=== PATIENT | female | born 1950 | race Caucasian/White ===

== ENCOUNTER → 2018-01-30 13:06 | Outpatient (CLI) | payer MEDICARE, BC, SELFPAY | PROVIDERS: PCP Nurse Practitioner Family; Visit Provider Nurse Practitioner Family | DX: M85.832 Other specified disorders of bone density and structure, left forearm (principal); Z78.0 Asymptomatic menopausal state; Z87.891 Personal history of nicotine dependence | CPT/HCPCS: 77080; 77081 ==

== ENCOUNTER → 2018-03-10 11:28 | Outpatient (CLI) | payer MEDICARE, BC, SELFPAY ==
--- NOTE | 2018-03-10 | DI.MG.S_ITS ---
BILATERAL DIGITAL SCREENING MAMMOGRAM 3D/2D WITH CAD: 03/10/2018 CLINICAL: Routine screening. Comparison is made to exams dated: 10/13/2016 mammogram, 10/08/2015 mammogram, and 09/11/2014 mammogram - [facility]. There are scattered fibroglandular elements in both breasts. Current study was also evaluated with a Computer Aided Detection (CAD) system. No significant masses, calcifications, or other findings are seen in either breast. There has been no significant interval change. IMPRESSION: NEGATIVE There is no mammographic evidence of malignancy. A 1 year screening mammogram is recommended. This exam was interpreted at Station ID: [id number]. NOTE: For mammograms, a report in lay terms will be sent to the patient. Approximately 15% of breast malignancies will not be visualized mammographically. In the management of a palpable breast mass, a negative mammogram must not discourage biopsy of a clinically suspicious lesion. Electronically Signed By: Asia ochoa/flory:03/10/2018 12:26:39 letter sent: Normal Exam ACR BI-RADS Category 1: Negative 3341F
== END ==
PROVIDERS: PCP Nurse Practitioner Family; Visit Provider Nurse Practitioner Family
DX: Z12.31 Encounter for screening mammogram for malignant neoplasm of breast (principal)
CPT/HCPCS: 77063; 77067

== ENCOUNTER 2018-04-08 12:49 | Emergency (ER) | payer MEDICARE, BC, SELFPAY ==
[2018-04-08 13:11] VITALS: BP 120/76; PULSE 91; RESP 15; TEMP 36.4; O2SAT 96; BMI 29.0
--- NOTE | 2018-04-08 13:15 | DI.RAD.S_ITS ---
PROCEDURE: XR CHEST 1V INDICATIONS: chest pain TECHNIQUE: One view of the chest was acquired. COMPARISON: None. FINDINGS: Surgical changes and devices: Left shoulder arthroplasty. Lungs and pleura: No pleural effusions or pneumothorax. Lungs are clear. Mediastinum: Mediastinal contours appear normal. Heart size is normal. Bones and chest wall: No suspicious bony lesions. Overlying soft tissues appear unremarkable. IMPRESSION: No acute cardiopulmonary disease process. Dictated by: Mayuri Valerio MD, PhD on 04/08/2018 at 13:51 Approved by: Mayuri Valerio MD, PhD on 04/08/2018 at 13:51
[2018-04-08] MEDS: ASPIRIN 81 MG TAB 324 MG PO (13:39)
[2018-04-08 13:40] VITALS: BP 113/67; PULSE 88; O2SAT 97
[2018-04-08 13:41] LABS: Prothrombin Time 10.6 SECONDS (10.1-12.7)
[2018-04-08 13:44] LABS: PTT Partial Thromboplastin Tim 32 SECONDS (26.4-36.2)
[2018-04-08 13:47] LABS: Alanine Aminotransferase 25 IU/L (9-52); Albumin 4.5 g/dL (3.5-5.0); Albumin Globulin Ratio 1.6 (1.0-2.8); Alkaline Phosphatase 85 U/L (38-126); Aspartate Aminotransferase 23 IU/L (14-36); Bilirubin Total 0.4 mg/dL (0.2-1.3); Blood Urea Nitrogen 20 mg/dL (7-17); Calcium 9.6 mg/dL (8.4-10.2); Carbon Dioxide 28 mmol/L (22-32); Chloride 105 mmol/L (98-107); Creatine Kinase 29 U/L (30-135); Estimated Glomerular Filt Rate > 60.0 mL/min (>60); Globulin 2.9 g/dL (1.7-4.1); Glucose 90 mg/dL (80-110); HEMOLYSIS 21 (0-50); Lipase 81 U/L (23-300); Potassium 3.8 mmol/L (3.4-5.1); Sodium 143 mmol/L (137-145); Total Protein 7.4 g/dL (6.3-8.2)
[2018-04-08 13:51] LABS: Add Manual Diff / Slide Review NO; Basophils Percent Auto 0.5 % (0-2); Eosinophils Percent Auto 0.7 % (2-4); Hematocrit 42.8 % (36-46); Hemoglobin 14.3 g/dL (12.0-16.0); Mean Corpuscular HGB Conc 33.4 % (30-36); Mean Corpuscular Hemoglobin 27.8 PG (26-34); Mean Corpuscular Volume 83.2 fL (80-100); Monocytes Percent Auto 8.7 % (3-14); Neutrophils Absolute Auto 5000 /uL (3000-5900); Neutrophils Percent Auto 70.1 % (50-75); Platelet Count 177 X10^3/uL (150-400); Red Blood Cell Count 5.15 X10^6/uL (4.0-5.2); Red Cell Distribution Width 14.3 % (11.6-14.8); White Blood Cell Count 7.1 X10^3/uL (4.5-11.0)
[2018-04-08 13:59] LABS: Troponin I < 0.012 ng/mL (0.01-0.034)
[2018-04-08 14:00] VITALS: BP 119/65; PULSE 85; RESP 12; O2SAT 95
--- NOTE | 2018-04-08 14:10 | ED_ITS ---
HPI - Chest Pain <Lyndsay Oneal PA-C - Last Filed: 04/08/18 19:36> General Chief Complaint: Chest Pain Stated Complaint: LEFT SHOULD PAIN X2 DAYS Time Seen by Provider: 04/08/18 13:43 Source: patient Mode of arrival: ambulatory Limitations: no limitations History of Present Illness HPI narrative: This 67-year-old female comes in today due to 2 day history of intermittent chest pain and discomfort. She states that on , she was sitting in her recliner, and had severe ?acid indigestion? up and down her food pipe for about 5 min. She has history of acid reflux and states that this felt similar. It resolved on its own. She states that intermittently since then, she has had similar pain to a lesser degree in the middle of her sternum that will come and go after a few minutes. She does think that times helps for a little while. She states that she does not have any nausea or vomiting. She has not had any new pain or swelling in her extremities. She states there are no exacerbating or alleviating features to pain. She has been eating normally and doing her usual activities. She states that she has no eric dyspnea, but states that she might have been a little more short of breath going up the stairs at home, and her sister noted that she seemed a little slower on her walk today. She states that she has had a slight cough for the last couple days but ?not sick? with fever or any upper respiratory symptoms recently. She states that pain seemed to go into her left shoulder a little bit after the initial episode and that has been sore. She does have a shoulder replacement on that side. She denies any recent activity change or trauma. She denies any diet changes or other possible exposures leading up to initial symptoms. She is currently symptom-free but states that she did have pain short time ago. She states that she came in today mainly due to the urging of family members Related Data Previous Rx's Medication Instructions Recorded gabapentin 100 mg PO Q8H #20 cap 04/08/18 Allergies Allergy/AdvReac Type Severity Reaction Status Date / Time codeine Allergy Verified 04/08/18 13:16 solifenacin [From Vesicare] Allergy Verified 04/08/18 13:16 Review of Systems <Lyndsay Oneal PA-C - Last Filed: 04/08/18 19:36> Review of Systems All systems reviewed & are unremarkable except as noted in HPI and below Exam <GUZMAN Oates Last Filed: 04/08/18 19:36> Narrative Exam Narrative: GENERAL APPEARANCE: Patient sitting comfortably, in no distress. NECK/THYROID: Neck supple, no JVD. LUNGS: Clear to auscultation bilaterally. CHEST: TTP throughout the entirety of the sternum HEART: Regular rate and rhythm without murmur, normal S1, S2, no S3 or S4. ABDOMEN: Soft, NT, ND, + BS x 4 quadrants EXTREMITIES: No edema. No calf tenderness NEUROLOGIC: Alert and oriented, normal speech, gait and coordination. DERM: There are a few erythematous papules on the right side of the neck, no vesicles Initial Vital Signs Initial Vital Signs: Vital Signs Temperature 97.5 F L 04/08/18 13:11 Pulse Rate 91 H 04/08/18 13:11 Respiratory Rate 15 04/08/18 13:11 Blood Pressure 120/76 04/08/18 13:11 Pulse Oximetry 96 04/08/18 13:11 <Wilfrido Singh DO - Last Filed: 04/08/18 20:04> Initial Vital Signs Initial Vital Signs: Vital Signs Temperature 97.5 F L 04/08/18 13:11 Pulse Rate 91 H 04/08/18 13:11 Respiratory Rate 15 04/08/18 13:11 Blood Pressure 120/76 04/08/18 13:11 Pulse Oximetry 96 04/08/18 13:11 Scores <GUZMAN Oates Last Filed: 04/08/18 19:36> HEART Score Heart Score history: Slightly Suspicious Heart Score EKG: Normal Heart Score Age: > or = 65 years old Heart Score risk factors: 1-2 risk factors Heart Score troponin: < or = to normal limit Heart Score Total: 3 Course <GUZMAN Oates Last Filed: 04/08/18 19:36> Additional Information: Discussed findings with Dr. Singh including lack of acute on labs, xr, ekg, as well as atypical pain with question of some mild exercise intolerance as well as clear sternal tenderness on exam and reflux symptoms. Patient reports feeling somewhat improved after GI cocktail. She has had persistent intermittent nonexertional symptoms. She has been doing remodeling work on her house but no clear trigger. Advised that her pain is not typical for cardiac pain, however she does need further workup, and advised stress testing as an outpatient. Advised return immediately if acutely worsening symptoms, or new symptoms such as nausea, dyspnea, etc, and she is agreeable. She does have severe acid reflux, instructed on proper dose timing of Nexium and also notes history of hiatal hernia. She will follow up with her PCP to discuss stress testing and then GI referral if needed. She had noted that she thought rash on her neck was from dog scratches, but following visit did note some burning in the area and previous h/o shingles. Rash present for 1 week. Advised too late for antiviral medication, I did give a prescription for gabapentin. Does not appear to be related to her current chest pain. Orders Ordered: ED Orders 04/08/18 13:15 XR chest 1V Stat EKG-12 Lead Stat 04/08/18 13:27 Complete Blood Count AUTO DIFF Stat Comprehensive Metabolic Panel Stat Lipase Stat Partial Thromboplastin Time Stat Prothrombin Time INR Stat Troponin & CK Cardiac Panel Stat Discontinued Medications Aspirin (Aspirin Chew) 324 mg PO NOW ONE Stop: 04/08/18 13:17 Last Admin: 04/08/18 13:39 Dose: 324 mg Al Hydrox/Mg Hydrox/Simethicone 20 ml/ Lidocaine HCl 15 ml 0 ml PO NOW ONE Stop: 04/08/18 13:59 Last Admin: 04/08/18 14:20 Dose: 35 ml Vital Signs - 8 hr 04/08/18 13:11 04/08/18 13:40 04/08/18 14:00 Temperature 97.5 F L Pulse Rate 91 H 88 85 Respiratory Rate 15 12 Blood Pressure 120/76 Blood Pressure [Left Arm] 113/67 119/65 Pulse Oximetry 96 97 95 04/08/18 15:33 Temperature Pulse Rate 75 Respiratory Rate 17 Blood Pressure Blood Pressure [Left Arm] 102/63 Pulse Oximetry 99 <Wilfrido Singh DO - Last Filed: 04/08/18 20:04> Orders Ordered: ED Orders 04/08/18 13:15 XR chest 1V Stat EKG-12 Lead Stat 04/08/18 13:27 Complete Blood Count AUTO DIFF Stat Comprehensive Metabolic Panel Stat Lipase Stat Partial Thromboplastin Time Stat Prothrombin Time INR Stat Troponin & CK Cardiac Panel Stat Discontinued Medications Aspirin (Aspirin Chew) 324 mg PO NOW ONE Stop: 04/08/18 13:17 Last Admin: 04/08/18 13:39 Dose: 324 mg Al Hydrox/Mg Hydrox/Simethicone 20 ml/ Lidocaine HCl 15 ml 0 ml PO NOW ONE Stop: 04/08/18 13:59 Last Admin: 04/08/18 14:20 Dose: 35 ml Vital Signs - 8 hr 04/08/18 13:11 04/08/18 13:40 04/08/18 14:00 Temperature 97.5 F L Pulse Rate 91 H 88 85 Respiratory Rate 15 12 Blood Pressure 120/76 Blood Pressure [Left Arm] 113/67 119/65 Pulse Oximetry 96 97 95 04/08/18 15:33 Temperature Pulse Rate 75 Respiratory Rate 17 Blood Pressure Blood Pressure [Left Arm] 102/63 Pulse Oximetry 99 MDM - Chest Pain <Lyndsay Oneal PA-C - Last Filed: 04/08/18 19:36> Lab Data Result diagrams: 04/08/18 13:27 04/08/18 13:27 Lab Results 04/08/18 04/08/18 04/08/18 Range/Units 13:27 13:27 13:27 WBC 7.1 (4.5-11.0) X10^3/uL RBC 5.15 (4.0-5.2) X10^6/uL Hgb 14.3 (12.0-16.0) g/dL Hct 42.8 (36-46) % MCV 83.2 (80-100) fL MCH 27.8 (26-34) PG MCHC 33.4 (30-36) % RDW 14.3 (11.6-14.8) % Plt Count 177 (150-400) X10^3/uL Neut % (Auto) 70.1 (50-75) % Lymph % (Auto) 20.0 L (25-40) % Cobb % (Auto) 8.7 (3-14) % Eos % (Auto) 0.7 L (2-4) % Baso % (Auto) 0.5 (0-2) % Neut # (Auto) 5000 (4551-3095) /uL PT 10.6 (10.1-12.7) SECONDS INR 1.0 (0.9-1.3) APTT 32 (26.4-36.2) SECONDS Sodium 143 (137-145) mmol/L Potassium 3.8 (3.4-5.1) mmol/L Chloride 105 (98-107) mmol/L Carbon Dioxide 28 (22-32) mmol/L BUN 20 H (7-17) mg/dL Creatinine 0.50 L (0.52-1.04) mg/dL Estimated GFR > 60.0 (>60) mL/min BUN/Creatinine Ratio 40.0 H (6-22) Glucose 90 (80-110) mg/dL Calcium 9.6 (8.4-10.2) mg/dL Total Bilirubin 0.4 (0.2-1.3) mg/dL AST 23 (14-36) IU/L ALT 25 (9-52) IU/L Alkaline Phosphatase 85 (38-126) U/L Total Creatine Kinase 29 L (30-135) U/L CK-MB (CK-2) TNP CK-MB (CK-2) Rel Index TNP Troponin I < 0.012 (0.01-0.034) ng/mL Total Protein 7.4 (6.3-8.2) g/dL Albumin 4.5 (3.5-5.0) g/dL Globulin 2.9 (1.7-4.1) g/dL Albumin/Globulin Ratio 1.6 (1.0-2.8) Lipase 81 (23-300) U/L Imaging Data Chest x-ray: Radiologist's impression: [place] [address] XRay Report Signed Patient: FAIZA JIMENEZ LMR#: [id number] : 3Acct:[id number] Age/Sex: 67 / FDate of Service: 04/08/18 Loc: ED Accession Number: [id number] Procedure: XR chest 1V Ordering Provider: Wilfrido Singh D.O. PROCEDURE: XR CHEST 1V INDICATIONS: chest pain TECHNIQUE: One view of the chest was acquired. COMPARISON: None. FINDINGS: Surgical changes and devices: Left shoulder arthroplasty. Lungs and pleura: No pleural effusions or pneumothorax. Lungs are clear. Mediastinum: Mediastinal contours appear normal. Heart size is normal. Bones and chest wall: No suspicious bony lesions. Overlying soft tissues appear unremarkable. IMPRESSION: No acute cardiopulmonary disease process. Dictated by: Mayuri Valerio MD, PhD on 04/08/2018 at 13:51 Approved by: Mayuri Valerio MD, PhD on 04/08/2018 at 13:51 ECG Data Attestation: I personally reviewed and interpreted this ECG as follows: (Normal sinus rhythm with rate 81) Prior ECG tracings: not available for review <Wilfrido Singh, DO - Last Filed: 04/08/18 20:04> Lab Data Lab Results 04/08/18 04/08/18 04/08/18 Range/Units 13:27 13:27 13:27 WBC 7.1 (4.5-11.0) X10^3/uL RBC 5.15 (4.0-5.2) X10^6/uL Hgb 14.3 (12.0-16.0) g/dL Hct 42.8 (36-46) % MCV 83.2 (80-100) fL MCH 27.8 (26-34) PG MCHC 33.4 (30-36) % RDW 14.3 (11.6-14.8) % Plt Count 177 (150-400) X10^3/uL Neut % (Auto) 70.1 (50-75) % Lymph % (Auto) 20.0 L (25-40) % Cobb % (Auto) 8.7 (3-14) % Eos % (Auto) 0.7 L (2-4) % Baso % (Auto) 0.5 (0-2) % Neut # (Auto) 5000 (0104-6502) /uL PT 10.6 (10.1-12.7) SECONDS INR 1.0 (0.9-1.3) APTT 32 (26.4-36.2) SECONDS Sodium 143 (137-145) mmol/L Potassium 3.8 (3.4-5.1) mmol/L Chloride 105 (98-107) mmol/L Carbon Dioxide 28 (22-32) mmol/L BUN 20 H (7-17) mg/dL Creatinine 0.50 L (0.52-1.04) mg/dL Estimated GFR > 60.0 (>60) mL/min BUN/Creatinine Ratio 40.0 H (6-22) Glucose 90 (80-110) mg/dL Calcium 9.6 (8.4-10.2) mg/dL Total Bilirubin 0.4 (0.2-1.3) mg/dL AST 23 (14-36) IU/L ALT 25 (9-52) IU/L Alkaline Phosphatase 85 (38-126) U/L Total Creatine Kinase 29 L (30-135) U/L CK-MB (CK-2) TNP CK-MB (CK-2) Rel Index TNP Troponin I < 0.012 (0.01-0.034) ng/mL Total Protein 7.4 (6.3-8.2) g/dL Albumin 4.5 (3.5-5.0) g/dL Globulin 2.9 (1.7-4.1) g/dL Albumin/Globulin Ratio 1.6 (1.0-2.8) Lipase 81 (23-300) U/L Discharge Plan Departure Patient Disposition: Home Clinical Impression: Atypical chest pain, Acid reflux disease Discharge Date/Time: 04/08/18 15:36 Interventions: ED Discharge Assessment Last Done: 04/08/18 15:36 Instructions: DI for Gastroesophageal Reflux Disease (GERD), DI for Atypical Chest Pain, GERD Diet Activity Restrictions/Additional Instructions: Please return as we talked about if you have acutely worsening symptoms, or new symptoms such as nausea, dizziness, or difficulty breathing. Otherwise, please see your PCP in the next week to follow up on this visit. As we talked about, you should have a cardiac stress test due to your risk factors and this atypical pain. In the interim, please start taking a baby aspirin once daily. Please change to taking your Nexium once daily about 45 min or so before a meal. Please add a liquid antacid such as Maalox or Gaviscon as needed instead of Tums as this may be more effective for your pain. Please avoid doing heavy activity with your upper body since your breast bone was quite sore today. I have also prescribed gabapentin for possible shingles on the right side of your neck. Since you have had this rash for some time, it is too late for antivirals however you can try gabapentin for pain since it feels like your previous shingles. Please make sure not to drive as this can make you sleepy Prescriptions: New gabapentin 100 mg capsule 100 mg PO Q8H Qty: 20 RF: 0 Referrals: Ryann Riggins ARNP [Primary Care Provider] - <Wilfrido Singh DO - Last Filed: 04/08/18 20:04> Cosign ED Attending Dougie Attestation: I was immediately available in the department for consultation. Documentation has been reviewed. I agree with assessment and plan.
[2018-04-08] MEDS: MAG HYDROX/ALUMINUM/SIMETH SUS 20 ML, LIDOCAINE VISCOUS 2% 15 ML PO (14:20)
[2018-04-08 15:33] VITALS: BP 102/63; PULSE 75; RESP 17; O2SAT 99
== END 2018-04-08 15:36 | disposition home or self-care (01) ==
PROVIDERS: Emergency Medicine; Emergency Provider Internal Medicine; PCP Nurse Practitioner Family
DX: K21.9 Gastro-esophageal reflux disease without esophagitis (principal); R07.89 Other chest pain
CPT/HCPCS: 36591; 71045; 80053; 82550; 83690; 84484; 85025; 85610; 85730; 93005; 93010; 99283; 99285

== ENCOUNTER → 2018-11-30 11:50 | Outpatient (CLI) | payer OTHER, MEDICARE, BC, SELFPAY ==
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
== END ==
PROVIDERS: PCP Nurse Practitioner Family; Visit Provider Nurse Practitioner Family
DX: M54.2 Cervicalgia (principal); M47.812 Spondylosis without myelopathy or radiculopathy, cervical region
CPT/HCPCS: 72040

== ENCOUNTER → 2019-03-26 11:45 | Outpatient (CLI) | payer MEDICARE, SELFPAY ==
--- NOTE | 2019-03-26 | DI.MG.S_ITS ---
BILATERAL DIGITAL SCREENING MAMMOGRAM 3D/2D WITH CAD: 03/26/2019 CLINICAL: Routine screening. Comparison is made to exams dated: 03/10/2018 mammogram - [facility], 10/13/2016 mammogram, and 10/08/2015 mammogram - [facility]. There are scattered fibroglandular elements in both breasts. Current study was also evaluated with a Computer Aided Detection (CAD) system. No significant masses, calcifications, or other findings are seen in either breast. There has been no significant interval change. IMPRESSION: NEGATIVE There is no mammographic evidence of malignancy. A 1 year screening mammogram is recommended. This exam was interpreted at Station ID: [id number]. NOTE: For mammograms, a report in lay terms will be sent to the patient. Approximately 15% of breast malignancies will not be visualized mammographically. In the management of a palpable breast mass, a negative mammogram must not discourage biopsy of a clinically suspicious lesion. Electronically Signed By: Antonio aguirre/flory:03/26/2019 13:34:24 letter sent: Normal Exam ACR BI-RADS Category 1: Negative 3341F
== END ==
PROVIDERS: PCP Nurse Practitioner Family; Visit Provider Nurse Practitioner Family
DX: Z12.31 Encounter for screening mammogram for malignant neoplasm of breast (principal)
CPT/HCPCS: 77063; 77067

== ENCOUNTER → 2019-05-07 13:54 | Outpatient (CLI) | payer MEDICARE, BC, SELFPAY ==
--- NOTE | 2019-05-07 | DI.ECHO.S_ITS ---
[place] [facility]---------+ [facility] +---------+ : : [address] : : : : [id number] : : : : Phone: [phone]+ Echocardiogram Report + + :Name: FAIZA JIMENEZ Study Date: 05/07/2019 Height: 66 in : :[facility] Weight: 189 lb : : Gender: Female BSA: 2.0 m2 : :: 1950 Age: 68 yrs BP: 124/86 mmHg: :Reason For Study: CHEST PAIN : : Performed By: [facility] Staff : :Referring: ISAAC SANDHU : + + Interpretation Summary The left ventricle is normal in size. Left ventricular systolic function is normal without focal wall motion abnormalities. The ejection fraction is estimated to be 60-65%. Diastolic parameters suggest a relaxation abnormality of the left ventricle, consistent with probable normal filling pressures. The right ventricular cavity is small. The right ventricular systolic function is normal. Pulmonary artery pressures cannot be estimated because of the lack of a measurable TR jet velocity. The left atrial size is normal. Right atrial size is normal. There is no significant valvular heart disease. The aortic root is normal size. Procedure: A two-dimensional transthoracic echocardiogram with color flow and Doppler was performed. The study quality was technically adequate. There is no prior echocardiogram noted for this patient. The patient was in normal sinus rhythm during the exam. Left Ventricle: The left ventricle is normal in size. Left ventricular wall thickness is mildly increased. Left ventricular systolic function is normal without focal wall motion abnormalities. The ejection fraction is estimated to be 60-65%. Diastolic parameters suggest a relaxation abnormality of the left ventricle, consistent with probable normal filling pressures. Right Ventricle: The right ventricular cavity is small. The right ventricular systolic function is normal. Atria: The left atrial size is normal. Right atrial size is normal. The interatrial septum is intact with no evidence for an atrial septal defect. Mitral Valve: The mitral valve is normal in structure and function. There is no mitral regurgitation noted. Aortic Valve: The aortic valve is trileaflet. The aortic valve opens well. No aortic regurgitation is present. Tricuspid Valve: The tricuspid valve is normal in structure and function. There is trace tricuspid regurgitation. Pulmonary artery pressures cannot be estimated because of the lack of a measurable TR jet velocity. Pulmonic Valve: The pulmonic valve is not well visualized. There is trace pulmonic regurgitation. There is no significant valvular heart disease. Great Vessels: The aortic root is normal size. The dimensions of the ascending aorta are normal. The pulmonary artery is normal size. The inferior vena cava was not visualized. Pericardium/ Pleura There is no pericardial effusion. There is no pleural effusion. MMode/2D Measurements & Calculations LVIDd: 3.7 cm LVOT diam: 2.0 cm LVIDs: 2.5 cm Ao root diam: 2.5 cm FS: 32.0 % Aortic Jxn: 2.5 cm EPSS: 0.76 cm asc Aorta Diam: 2.9 cm IVSd: 1.1 cm LVPWd: 1.1 cm LV rogers. diameter/BSA (cm/m^2): 1.9 LV sys. diameter/BSA (cm/m^2): 1.3 LA A2 area: 15.3 cm2 RA long axis: 4.3 cm LA A4 area: 19.2 cm2 RA area: 10.1 cm2 LA length (vol): 4.9 cm RA vol: 20.0 ml LA vol: 50.8 ml RA : 10.3 ml/m2 LA vol index: 26.0 ml/m2 IVC diam: 1.6 cm TAPSE: 1.8 cm Doppler Measurements & Calculations Ao V2 max: 114.0 cm/sec LVOT Max Krishna: 103.1 cm/sec Ao V2 mean: 75.6 cm/sec LV V1 max P.3 mmHg Ao max P.2 mmHg LV V1 VTI: 22.8 cm Ao mean P.6 mmHg KAYLENE(I,D): 3.4 cm2 Ao V2 VTI: 20.5 cm KAYLENE(V,D): 2.8 cm2 sev ratio: 1.1 KAYLENE indexed to BSA (cm^2/m^2): 1.7 MV E max krishna: 52.6 cm/sec PA V2 max: 77.4 cm/sec MV A max krishna: 72.8 cm/sec PA V2 mean: 51.7 cm/sec MV E/A: 0.72 PA mean P.2 mmHg Med Peak E' Krishna: 5.9 cm/sec PA Accel Time: 0.08 sec E/E' med: 8.9 Lat Peak E' Krishna: 7.8 cm/sec E/E' lat: 6.7 E/e' average: 7.8 MV dec time: 0.30 sec SV(LVOT): 70.0 ml Reading Physician:05:06 PM
--- NOTE | 2019-05-07 14:42 | PM.TREADMILL ---
Cardiac Stress Test Report Referral & Results Date Patient Seen: 05/07/19 Requesting provider: Ryann Riggins Indication: Chest discomfort Rest ECG: Unremarkable Procedure Note: Today following both written and verbal informed consent, the patient was exercised according to a standard [facility] protocol. The patient exercised for a total of 6 minutes 11 seconds achieving a maximum heart rate of 147. Patient's maximum systolic blood pressure was 160. This was an estimated 7.0 MET's. There are no ST-T segment changes identified Normal heart rate and blood pressure response to exercise Functional aerobic impairment rates about-20% on the sedentary scale or 120% better than average Occasional to rare PVC Impression: No evidence of ischemia Average exercise capacity Please note: Actual ECG tracings can be found in the PACS system.
== END ==
PROVIDERS: PCP Nurse Practitioner Family; Visit Provider Nurse Practitioner Family
DX: R07.89 Other chest pain (principal)
CPT/HCPCS: 93016; 93017; 93018; 93306

== ENCOUNTER → 2019-12-28 10:12 | Outpatient (CLI) | payer MEDICARE, BC, SELFPAY ==
--- NOTE | 2019-12-28 | DI.RAD.S_ITS ---
PROCEDURE: XR LUMBAR SPINE 2-3V INDICATIONS: Low back pain TECHNIQUE: Two views of the lumbar spine were acquired. COMPARISON: [facility] [place], CR, XR PELVIS WITH LATERAL HIP LEFT, 02/21/2018, 11:37. FINDINGS: Bones: There are five non-rib bearing lumbar type vertebral bodies. The L5 vertebral body has indistinct abnormally lucent cortices which are ill-defined. There is questionable height loss of the L5 vertebral body as well. There is suggestion of a possible lytic lesion within the central aspect of the inferior L5 vertebral body. This could potentially represent a Schmorl level, although this is not definitive. Remaining vertebral body heights maintained. Degenerative changes from L2-L3 to L5-S1 driven primarily by facet hypertrophy. Soft tissues: Overlying bowel gas pattern is normal. No suspicious soft tissue calcifications. IMPRESSION: Abnormally lucent and lytic appearance of the L5 vertebral body. Contrast-enhanced MRI recommended. Approved by: Jack Arora M.D. on 12/28/2019 at 12:19
[2019-12-28 12:24] LABS: Hemoglobin A1C% w Est Avg Glu 5.9 % (4.0-6.0)
[2019-12-28 12:26] LABS: BUN Creatinine Ratio 34.5 (6-22); Blood Urea Nitrogen 19 mg/dL (7-17); Calcium 10.1 mg/dL (8.4-10.2); Carbon Dioxide 26 mmol/L (22-32); Chloride 103 mmol/L (98-107); Cholesterol 201 mg/dL (140-199); Estimated Glomerular Filt Rate > 60.0 mL/min (>60); Glucose 101 mg/dL (80-110); HDL Cholesterol 54 mg/dL (40-60); HEMOLYSIS < 15 (0-50); LDL Cholesterol Calculated 101 mg/dL (<100); Magnesium 1.9 mg/dL (1.6-2.3); Potassium 4.3 mmol/L (3.4-5.1); Sodium 138 mmol/L (137-145); Triglycerides 231 mg/dL (35-150)
== END ==
PROVIDERS: PCP Nurse Practitioner Family; Visit Provider Nurse Practitioner
DX: M54.5 Low back pain (principal); E78.5 Hyperlipidemia, unspecified; R00.2 Palpitations; I49.3 Ventricular premature depolarization; E11.9 Type 2 diabetes mellitus without complications
CPT/HCPCS: 36415; 72100; 80048; 80061; 83036; 83735

== ENCOUNTER → 2020-04-26 14:35 | Outpatient (CLI) | payer MEDICARE, BC, SELFPAY ==
--- NOTE | 2020-04-26 | DI.MG.S_ITS ---
BILATERAL DIGITAL SCREENING MAMMOGRAM 3D/2D WITH CAD: 04/26/2020 Comparison is made to exams dated: 03/26/2019 mammogram, 03/10/2018 mammogram - [facility], and 10/08/2015 mammogram - [facility]. There are scattered fibroglandular elements in both breasts. Current study was also evaluated with a Computer Aided Detection (CAD) system. No significant masses, calcifications, or other findings are seen in either breast. There has been no significant interval change. IMPRESSION: NEGATIVE There is no mammographic evidence of malignancy. A 1 year screening mammogram is recommended. This exam was interpreted at Station ID: [id number]. NOTE: For mammograms, a report in lay terms will be sent to the patient. Approximately 15% of breast malignancies will not be visualized mammographically. In the management of a palpable breast mass, a negative mammogram must not discourage biopsy of a clinically suspicious lesion. Electronically Signed By: Shandra silva/flory:04/28/2020 10:42:07 letter sent: Normal Exam ACR BI-RADS Category 1: Negative 3341F
== END ==
PROVIDERS: PCP Internal Medicine; Referring Provider Internal Medicine; Visit Provider Internal Medicine
DX: Z12.31 Encounter for screening mammogram for malignant neoplasm of breast (principal)
CPT/HCPCS: 77063; 77067

== ENCOUNTER → 2020-10-16 13:08 | Outpatient (CLI) | payer MEDICARE, BC, SELFPAY ==
[2020-10-16 14:14] LABS: Add Manual Diff / Slide Review NO; Basophils Absolute Auto 0 /uL (0-100); Basophils Percent Auto 0.7 % (0-2); Eosinophils Absolute Auto 100 /uL (0-450); Eosinophils Percent Auto 1.9 % (2-4); Hematocrit 40.6 % (36-46); Hemoglobin 13.5 g/dL (12.0-16.0); Lymphocytes Absolute Auto 1600 /uL (1100-4500); Lymphocytes Percent Auto 25.9 % (25-40); Mean Corpuscular HGB Conc 33.2 % (30-36); Mean Corpuscular Volume 84.2 fL (80-100); Monocytes Absolute Auto 500 /uL (0-900); Monocytes Percent Auto 7.5 % (3-14); Neutrophils Absolute Auto 3900 /uL (1500-7000); Platelet Count 228 X10^3/uL (150-400); Red Blood Cell Count 4.83 X10^6/uL (4.0-5.2); Red Cell Distribution Width 14.3 % (11.6-14.8)
[2020-10-16 15:04] LABS: Alanine Aminotransferase 15 IU/L (<35); Albumin 4.2 g/dL (3.5-5.0); Albumin Globulin Ratio 1.5 (1.0-2.8); Alkaline Phosphatase 91 U/L (38-126); Aspartate Aminotransferase 22 IU/L (14-36); BUN Creatinine Ratio 39.7 (6-22); Bilirubin Total 0.2 mg/dL (0.2-1.3); Blood Urea Nitrogen 23 mg/dL (7-17); C-Reactive Protein Quant < 0.5 mg/dL (<1.0); Calcium 9.9 mg/dL (8.4-10.2); Carbon Dioxide 21 mmol/L (22-32); Chloride 107 mmol/L (98-107); Estimated Glomerular Filt Rate > 60.0 mL/min (>60); Globulin 2.8 g/dL (1.7-4.1); Glucose 105 mg/dL (80-110); HEMOLYSIS < 15 (0-50); Potassium 4.2 mmol/L (3.4-5.1); Sodium 139 mmol/L (137-145)
== END ==
PROVIDERS: PCP Internal Medicine; Referring Provider Internal Medicine Gastroenterology; Visit Provider Internal Medicine Gastroenterology
DX: M85.832 Other specified disorders of bone density and structure, left forearm (principal); Z78.0 Asymptomatic menopausal state; K21.9 Gastro-esophageal reflux disease without esophagitis; K50.00 Crohn's disease of small intestine without complications; E11.9 Type 2 diabetes mellitus without complications; Z87.891 Personal history of nicotine dependence
CPT/HCPCS: 36415; 77080; 80053; 85025; 86140

== ENCOUNTER → 2021-01-08 10:13 | Outpatient (CLI) | payer MEDICARE, BC, SELFPAY | PROVIDERS: Family Provider Internal Medicine; PCP Internal Medicine; Referring Provider Orthopaedic Surgery; Visit Provider Internal Medicine | DX: G56.21 Lesion of ulnar nerve, right upper limb (principal); Z96.611 Presence of right artificial shoulder joint | CPT/HCPCS: 95886; 95911 ==

== ENCOUNTER → 2021-02-02 06:57 | Outpatient (CLI) | payer MEDICARE, BC, SELFPAY ==
[2021-02-02 08:26] LABS: Hemoglobin A1C% w Est Avg Glu 5.5 % (4.0-6.0)
[2021-02-02 09:01] LABS: Alanine Aminotransferase 21 IU/L (<35); Albumin Globulin Ratio 1.3 (1.0-2.8); Alkaline Phosphatase 95 U/L (38-126); Aspartate Aminotransferase 28 IU/L (14-36); BUN Creatinine Ratio 37.5 (6-22); Bilirubin Total 0.3 mg/dL (0.2-1.3); Blood Urea Nitrogen 21 mg/dL (7-17); Calcium 9.7 mg/dL (8.4-10.2); Carbon Dioxide 25 mmol/L (22-32); Chloride 108 mmol/L (98-107); Cholesterol 183 mg/dL (140-199); Estimated Glomerular Filt Rate > 60.0 mL/min (>60); Glucose 83 mg/dL (80-110); HDL Cholesterol 59 mg/dL (40-60); HEMOLYSIS < 15 (0-50); LDL Cholesterol Calculated 80 mg/dL (<100); Potassium 4.4 mmol/L (3.4-5.1); Sodium 141 mmol/L (137-145); Triglycerides 220 mg/dL (35-150)
== END ==
PROVIDERS: Family Provider Internal Medicine; PCP Internal Medicine; Referring Provider Nurse Practitioner; Visit Provider Nurse Practitioner
DX: E78.5 Hyperlipidemia, unspecified (principal); E11.9 Type 2 diabetes mellitus without complications
CPT/HCPCS: 36415; 80053; 80061; 83036

== ENCOUNTER → 2021-03-06 11:00 | Outpatient (CLI) | payer MEDICARE, BC, SELFPAY ==
--- NOTE | 2021-03-06 | DI.MRI.S_ITS ---
PROCEDURE: MR LUMBAR SPINE WO CON INDICATIONS: Spondylosis without myelopathy or radiculopathy, lumbar milagro TECHNIQUE: Noncontrast sagittal T1 spin echo and T2 fast echo, sagittal STIR, axial T1 and T2 fast spin echo through the lumbar spine. In cases with scoliosis, additional coronal T2 fast spin echo may be performed. COMPARISON: [facility], CR, XR LUMBAR SPINE 2-3V, 12/28/2019, 10:20. FINDINGS: Image quality: Excellent. Alignment and Curvature: There is grade 1 L5-S1 anterolisthesis, with associated pars defects. Bone Marrow: Marrow is of normal overall signal. Scattered foci are seen, which are hyperintense on T1-weighted and T2-weighted imaging, which are most consistent with benign vertebral body hemangiomas. The most prominent of these can be seen within the T10 level. No acute vertebral body compression fractures. Spinal Cord: Conus medullaris terminates at the T12-L1 level. Visualized cord demonstrates normal signal and size. This patient has transitional lumbar anatomy. For the purposes of this examination, the level with the last well-developed vertebral body is considered to be L5. By this numbering scheme, there are no definite ribs seen associated with the T12 level. This numbering scheme is chosen to remain consistent with the prior plain film report, 12/28/2019. Paraspinous Soft Tissues: No paravertebral masses. Moderate degenerative change can be seen of the visualized lower thoracic spine. T12-L1: Mild loss of disc height is seen. Loss of disc signal is seen. Mild disc bulge is seen. Bridging endplate osteophytes can be seen on the right. No significant neural foraminal or central canal narrowing can be seen. L1-L2: The disc height is well-preserved. Loss of disc signal is seen at this level. Mild generalized disc bulge is seen. There is wnil-ho-zrmojkym right-sided and moderate left-sided neural foraminal narrowing seen. No significant central canal narrowing is seen. L2-L3: The disc height is well-preserved. Loss of disc signal is seen at this level. Moderate facet joint hypertrophy is seen. Mild bilateral neural foraminal narrowing is seen. Mild central canal narrowing is seen. L3-L4: The disc height is well-preserved. Loss of disc signal is seen at this level. Mild to moderate disc bulge is seen. Prominent facet hypertrophy is seen. Associated hypertrophy of the ligamentum flavum can be seen. There is at least moderate bilateral neural foraminal narrowing seen. There is a degree of compression seen upon the exiting nerve roots. Mild to moderate central canal narrowing is seen. L4-L5: The disc height is well-preserved. Loss of disc signal is seen at this level. Mild generalized disc bulge is seen. Moderate to prominent facet hypertrophy is seen. There is at least moderate bilateral neural foraminal narrowing seen, right worse than left. There is a degree of compression seen upon the exiting nerve roots. No significant central canal narrowing is seen. L5-S1: There is a transitional, rudimentary disc at this level. Loss of disc height is seen. Mild disc bulge is seen. Disc uncovering is seen at this level. There is moderate to severe right-sided and at least moderate left-sided neural foraminal narrowing seen. Minimal central canal narrowing is seen. 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 IMPRESSION: Multiple levels of lumbar spine degenerative change are seen, which are worst at the L5-S1 level. Several sites of significant neural foraminal narrowing can be seen, with associated exiting nerve root compression. There is transitional lumbar anatomy. Dictated by: Maximiliano Arreguin M.D. on 03/06/2021 at 10:56 Approved by: Maximiliano Arreguin M.D. on 03/06/2021 at 11:01
== END ==
PROVIDERS: Family Provider Internal Medicine; PCP Internal Medicine; Referring Provider Anesthesiology Pain Medicine; Visit Provider Anesthesiology Pain Medicine
DX: M47.816 Spondylosis without myelopathy or radiculopathy, lumbar region (principal); M47.817 Spondylosis without myelopathy or radiculopathy, lumbosacral region; M48.061 Spinal stenosis, lumbar region without neurogenic claudication; M48.07 Spinal stenosis, lumbosacral region
CPT/HCPCS: 72148

== ENCOUNTER → 2021-05-29 12:35 | Outpatient (CLI) | payer MEDICARE, BC, SELFPAY ==
--- NOTE | 2021-05-29 12:37 | DI.MG.S_ITS ---
BILATERAL DIGITAL SCREENING MAMMOGRAM 3D/2D WITH CAD: 05/29/2021 CLINICAL: Routine screening. Family history of breast cancer. Comparison is made to exams dated: 04/26/2020 mammogram, 03/26/2019 mammogram, and 03/10/2018 mammogram - [facility]. There are scattered fibroglandular elements in both breasts. Current study was also evaluated with a Computer Aided Detection (CAD) system. No significant masses, calcifications, or other findings are seen in either breast. There has been no significant interval change. IMPRESSION: NEGATIVE There is no mammographic evidence of malignancy. A 1 year screening mammogram is recommended. This exam was interpreted at Station ID: [id number]. NOTE: For mammograms, a report in lay terms will be sent to the patient. Approximately 15% of breast malignancies will not be visualized mammographically. In the management of a palpable breast mass, a negative mammogram must not discourage biopsy of a clinically suspicious lesion. Electronically Signed By: Shandra silva/flory:05/29/2021 17:15:25 letter sent: Normal Exam ACR BI-RADS Category 1: Negative 3341F
== END ==
PROVIDERS: Family Provider Internal Medicine; PCP Internal Medicine; Referring Provider Internal Medicine; Visit Provider Internal Medicine
DX: Z12.31 Encounter for screening mammogram for malignant neoplasm of breast (principal); Z80.3 Family history of malignant neoplasm of breast
CPT/HCPCS: 77063; 77067

== ENCOUNTER → 2021-09-25 13:34 | Outpatient (CLI) | payer MEDICARE, BC, SELFPAY ==
--- NOTE | 2021-09-25 | DI.CT.S_ITS ---
PROCEDURE: CT ABDOMEN PELVIS WO/W CON INDICATIONS: Asymptomatic microscopic hematuria TECHNIQUE: Optional 5 mm thick noncontrast images acquired from the diaphragm to the symphysis pubis. After the administration of intravenous contrast, 5 mm thick images acquired from the diaphragm to the symphysis pubis after a 10-minute delay. 2 mm thick coronal and sagittal reformats were then performed of the kidneys and ureters. For radiation dose reduction, the following was used: automated exposure control, adjustment of mA and/or kV according to patient size. COMPARISON: None. FINDINGS: Image quality: Excellent. Lung bases: Bibasilar dependent atelectasis is seen. Heart size is normal. Urinary system: Both kidneys are normal in size, without hydronephrosis or nephrolithiasis on pre-contrast images. No perinephric fat stranding. 2.4 x 2.2 x 2.1 cm predominantly fat density structure involving medial aspect of lower pole left kidney is seen likely represent angiomyolipoma. There is normal bilateral renal enhancement. Renal calyces appear normal in morphology when filled with contrast. Opacified portions of both ureters demonstrate normal caliber. Bladder wall thickness is grossly normal. No calcified bladder stones. Evaluation is slightly limited due to significant beam hardening artifacts from bilateral hip prosthesis. Other solid organs: Liver is normal in size and enhancement. Hepatic steatosis is seen. Gallbladder is within normal limits. Biliary system is non dilated. Pancreas enhances normally. Spleen is normal in size and enhancement. 1.3 x 1.5 cm hypodense nodule in left adrenal gland is seen series 4, image 47 and measures 1.3 Hounsfield unit in density on noncontrast series. No right adrenal nodule. Peritoneum and bowel: Postsurgical changes are seen in left lower quadrant involving distal descending colon/sigmoid colon with grossly intact surgical anastomosis. No abnormal bowel wall thickening. No bowel obstruction. No mesenteric fat stranding. No free fluid or free air. Nodes and vessels: No retroperitoneal or mesenteric adenopathy by size criteria. Aorta and inferior vena cava are normal in size. Abdominal wall: No ventral hernias. Pelvis: No pathologic free pelvic fluid. No inguinal hernias or adenopathy. Bones: No suspicious bony lesions. No acute vertebral body compression fractures. Chronic appearing superior endplate compression deformity at L5 level is seen. Grade 1 anterolisthesis of L5 on S1 is seen. Degenerative disc disease throughout lower thoracic and lumbar spine is seen. Patient is status post bilateral total hip arthroplasty. IMPRESSION: 1. No renal stone or hydronephrosis. No hydroureter. No gross abnormality is seen in urinary bladder. 2. 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 No right renal lesion is identified. 3. 1.5 x 1.3 cm hypodense nodule in left adrenal gland consistent with lipid rich adrenal adenoma. 4. Prior partial colonic resection with postsurgical changes. No bowel obstruction or abnormal bowel wall thickening. No free fluid or free air. 5. Hepatic steatosis, no discrete hepatic lesion. 6. Degenerative disc disease throughout lumbar spine and lower thoracic spine with chronic appearing superior endplate compression at L5 level and grade 1 anterolisthesis of L5 on S1. Dictated by: Reji Street M.D. on 09/25/2021 at 15:21 Approved by: Reji Street M.D. on 09/25/2021 at 16:17
== END ==
PROVIDERS: Family Provider Internal Medicine; PCP Internal Medicine; Referring Provider Internal Medicine; Visit Provider Internal Medicine
DX: R31.21 Asymptomatic microscopic hematuria (principal); N28.89 Other specified disorders of kidney and ureter; E27.9 Disorder of adrenal gland, unspecified; K76.0 Fatty (change of) liver, not elsewhere classified; M51.36 Other intervertebral disc degeneration, lumbar region; M51.34 Other intervertebral disc degeneration, thoracic region; M43.17 Spondylolisthesis, lumbosacral region; Z98.0 Intestinal bypass and anastomosis status
CPT/HCPCS: 74178; Q9967

== ENCOUNTER → 2022-05-24 08:11 | Outpatient (CLI) | payer MEDICARE, BC, SELFPAY ==
[2022-05-24 09:44] LABS: Add Manual Diff / Slide Review NO; Basophils Absolute Auto 0 /uL (0-100); Basophils Percent Auto 0.6 % (0-2); Eosinophils Absolute Auto 100 /uL (0-450); Eosinophils Percent Auto 1.6 % (2-4); Hematocrit 41.4 % (36-46); Hemoglobin 13.8 g/dL (12.0-16.0); Lymphocytes Absolute Auto 1000 /uL (1100-4500); Lymphocytes Percent Auto 22.1 % (25-40); Mean Corpuscular HGB Conc 33.3 % (30-36); Mean Corpuscular Hemoglobin 27.6 PG (26-34); Monocytes Absolute Auto 500 /uL (0-900); Monocytes Percent Auto 10.1 % (3-14); Neutrophils Absolute Auto 3000 /uL (1500-7000); Neutrophils Percent Auto 65.6 % (50-75); Platelet Count 161 X10^3/uL (150-400); Red Blood Cell Count 4.99 X10^6/uL (4.0-5.2); Red Cell Distribution Width 14.4 % (11.6-14.8); White Blood Cell Count 4.7 X10^3/uL (4.5-11.0)
[2022-05-24 10:12] LABS: Alanine Aminotransferase 26 IU/L (<35); Albumin 4.1 g/dL (3.5-5.0); Albumin Globulin Ratio 1.5 (1.0-2.8); Alkaline Phosphatase 92 U/L (38-126); Aspartate Aminotransferase 23 IU/L (14-36); BUN Creatinine Ratio 32.8 (6-22); Bilirubin Total 0.2 mg/dL (0.2-1.3); Blood Urea Nitrogen 20 mg/dL (7-17); Calcium 9.2 mg/dL (8.4-10.2); Carbon Dioxide 25 mmol/L (22-32); Chloride 105 mmol/L (98-107); Cholesterol 170 mg/dL (140-199); Estimated Glomerular Filt Rate > 60 mL/min (>60); Globulin 2.7 g/dL (1.7-4.1); Glucose 95 mg/dL (80-110); HDL Cholesterol 51 mg/dL (40-60); HEMOLYSIS < 15 (0-50); LDL Cholesterol Calculated 70 mg/dL (<100); Potassium 4.1 mmol/L (3.4-5.1); Sodium 139 mmol/L (137-145); Total Protein 6.8 g/dL (6.3-8.2); Triglycerides 247 mg/dL (35-150)
[2022-05-24 10:45] LABS: TSH w/ Reflex to FT4 3.18 uIU/mL (0.47-4.68)
== END ==
PROVIDERS: Family Provider Internal Medicine; PCP Internal Medicine; Referring Provider Internal Medicine; Visit Provider Internal Medicine
DX: E11.9 Type 2 diabetes mellitus without complications (principal); K50.90 Crohn's disease, unspecified, without complications; E78.5 Hyperlipidemia, unspecified; Z13.29 Encounter for screening for other suspected endocrine disorder
CPT/HCPCS: 36415; 80053; 80061; 83036; 84443; 85025

== ENCOUNTER → 2022-07-21 09:28 | Outpatient (CLI) | payer MEDICARE, BC, SELFPAY ==
--- NOTE | 2022-07-21 | DI.MG.S_ITS ---
BILATERAL DIGITAL SCREENING MAMMOGRAM 3D/2D WITH CAD: 07/21/2022 CLINICAL: Routine screening. Family history of breast cancer. Comparison is made to exams dated: 04/26/2020 mammogram, 03/26/2019 mammogram, 03/10/2018 mammogram, and 05/29/2021 mammogram - [facility]. There are scattered areas of fibroglandular density in both breasts (category b / 25%-50% glandular tissue). Current study was also evaluated with a Computer Aided Detection (CAD) system. No significant masses, calcifications, or other findings are seen in either breast. There has been no significant interval change. IMPRESSION: NEGATIVE There is no mammographic evidence of malignancy. A 1 year screening mammogram is recommended. Based on the Tyrer Cuzick model (a risk assessment model) the patient's lifetime risk is 5.2% and her 10 year risk is 3.0%. According to the ACR, ACS, and NCCN guidelines, an annual breast MRI exam along with mammogram is recommended if the patient's lifetime risk is 20% or greater. This exam was interpreted at Station ID: [id number]. NOTE: For mammograms, a report in lay terms will be sent to the patient. Approximately 15% of breast malignancies will not be visualized mammographically. In the management of a palpable breast mass, a negative mammogram must not discourage biopsy of a clinically suspicious lesion. Electronically Signed By: Jose L oliveira/flory:07/21/2022 10:58:05 letter sent: Normal Exam ACR BI-RADS Category 1: Negative 3341F
== END ==
PROVIDERS: Family Provider Internal Medicine; PCP Internal Medicine; Referring Provider Internal Medicine; Visit Provider Internal Medicine
DX: Z12.31 Encounter for screening mammogram for malignant neoplasm of breast (principal); Z80.3 Family history of malignant neoplasm of breast
CPT/HCPCS: 77063; 77067

== ENCOUNTER → 2023-02-11 15:03 | Outpatient (ROUT) | payer MEDICARE, BC, SELFPAY ==
[2023-02-11 15:52] LABS: Influenza A - CEPHEID Flu A NEGATIVE (NEGATIVE); Influenza B - CEPHEID Flu B NEGATIVE (NEGATIVE); Respiratory Syncytial Virus Negative (Negative)
[2023-02-11 17:30] LABS: COVID-19 CEPHEID 4-PLEX PCR Negative (Negative)
== END ==
PROVIDERS: Family Provider Internal Medicine; PCP Internal Medicine; Visit Provider Internal Medicine
DX: Z20.822 Contact with and (suspected) exposure to COVID-19 (principal)
CPT/HCPCS: 0241U

== ENCOUNTER → 2023-04-28 10:32 | Outpatient (CLI) | payer MEDICARE, BC, SELFPAY ==
--- NOTE | 2023-04-28 | DI.RAD.S_ITS ---
PROCEDURE: XR KNEE RT 3V INDICATIONS: right knee pain TECHNIQUE: 3 views of the knee were acquired. COMPARISON: None. FINDINGS: Bones: No fractures or dislocations. Hwkl-ht-nqeidsas tricompartmental osteoarthritis is seen more notably in medial femoral tibial compartment with joint space narrowing, subchondral sclerosis and marginal osteophyte formation. No patellar subluxation. No suspicious bony lesions. Soft tissues: No joint effusion. No suspicious soft tissue calcifications. 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 No fracture or dislocation. No significant joint effusion. Dictated by: Reji Street M.D. on 04/28/2023 at 14:03 Approved by: Reji Street M.D. on 04/28/2023 at 14:04
--- NOTE | 2023-04-28 | DI.RAD.S_ITS ---
PROCEDURE: XR WRIST RT MIN 3V INDICATIONS: right wrist pain TECHNIQUE: 3 views of the wrist were acquired. COMPARISON: None. FINDINGS: Bones: No fractures or dislocations. Moderate osteoarthritic changes are noted throughout right wrist joint more notably along radial aspect of right wrist. No suspicious bony lesions. Soft tissues: No suspicious soft tissue calcifications. IMPRESSION: Right wrist joint osteoarthritis. No wrist fracture or dislocation. No radiographic evidence of avascular necrosis. Dictated by: Reji Street M.D. on 04/28/2023 at 14:04 Approved by: Reji Street M.D. on 04/28/2023 at 14:06
== END ==
PROVIDERS: Family Provider Internal Medicine; PCP Internal Medicine; Referring Provider Registered Nurse; Visit Provider Registered Nurse
DX: M19.031 Primary osteoarthritis, right wrist (principal); M25.531 Pain in right wrist; M17.11 Unilateral primary osteoarthritis, right knee; M25.561 Pain in right knee
CPT/HCPCS: 73110; 73562

== ENCOUNTER → 2023-06-11 11:34 | Outpatient (CLI) | payer MEDICARE, BC, SELFPAY ==
--- NOTE | 2023-06-11 11:36 | DI.CT.S_ITS ---
PROCEDURE: CT KIDNEY URETER BLADDER (KUB) INDICATIONS: flank pain TECHNIQUE: Axial sections were acquired from the lung bases to the pubic symphysis. Coronal and sagittal reformats were performed. For radiation dose reduction, the following was used: automated exposure control, adjustment of mA and/or kV according to patient size. COMPARISON: None. FINDINGS: Image quality: Excellent. Lung bases: No pleural effusion. Small hiatal hernia. Heart: No significant findings. URINARY: Right Kidney: No stones or hydronephrosis. Right Ureter: No hydroureter. Left Kidney: No stones or hydronephrosis. Fat containing lesion in the inferior left kidney measuring 2.2 cm, (2/39), previously 2.6 cm. This is most consistent with an angiomyolipoma. Left Ureter: No hydroureter. Bladder: Poorly evaluated. ABDOMEN: Liver: Hypodensity in segment 4, (/). Gallbladder: No radiopaque gallstones or wall thickening. Biliary ducts: No biliary dilation. Pancreas: No ductal dilation. Spleen: Size is within normal limits. Adrenal Glands: Small benign left adrenal adenoma measuring 1.3 cm. Stomach and Bowel: Normal colonic caliber, without significant wall thickening. Sigmoid anastomosis. Diverticulosis. The appendix is not dilated. Peritoneum: No abnormal intraperitoneal fluid. No free air. Ventral Wall: No hernia. Abdominal Nodes: No enlarged retroperitoneal or mesenteric lymph nodes. Vessels: Aorta and inferior vena cava are normal in size. PELVIS: Pelvic Organs: Unremarkable. Pelvic Nodes: Unremarkable. Miscellaneous: Probable fat containing right inguinal hernia. Bones: No suspicious osseous lesion. Bilateral hip arthroplasties. Beam hardening artifact. Bilateral L5 pars defect. Grade 1 anterolisthesis of L5 on S1. IMPRESSION: 1. No kidney stones. No hydronephrosis. 2. Fat containing mass at the inferior pole left kidney measuring 2.2 cm is not significantly changed. 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 3. Bladder poorly evaluated due to beam hardening artifact. 4. Normal appendix. No free fluid. Dictated by: Jose L Phipps M.D. on 06/11/2023 at 18:58 Approved by: Jose L Phipps M.D. on 06/11/2023 at 19:10
== END ==
PROVIDERS: Family Provider Internal Medicine; PCP Internal Medicine; Referring Provider Registered Nurse; Visit Provider Registered Nurse
DX: N28.89 Other specified disorders of kidney and ureter (principal); R10.9 Unspecified abdominal pain; K44.9 Diaphragmatic hernia without obstruction or gangrene; D35.02 Benign neoplasm of left adrenal gland; K57.90 Diverticulosis of intestine, part unspecified, without perforation or abscess without bleeding; Z98.0 Intestinal bypass and anastomosis status
CPT/HCPCS: 74176

== ENCOUNTER → 2023-07-23 08:24 | Outpatient (CLI) | payer MEDICARE, SELFPAY ==
--- NOTE | 2023-07-23 | DI.MG.S_ITS ---
BILATERAL DIGITAL SCREENING MAMMOGRAM 3D/2D WITH CAD: 07/23/2023 CLINICAL: Routine screening. Comparison is made to exams dated: 07/21/2022 mammogram, 05/29/2021 mammogram, and 04/26/2020 mammogram - [facility]. There are scattered areas of fibroglandular density in both breasts (category b / 25%-50% glandular tissue). Current study was also evaluated with a Computer Aided Detection (CAD) system. No significant masses, calcifications, or other findings are seen in either breast. There has been no significant interval change. IMPRESSION: NEGATIVE There is no mammographic evidence of malignancy. A 1 year screening mammogram is recommended. Based on the Tyrer Cuzick model (a risk assessment model) the patient's lifetime risk is 4.9% and her 10 year risk is 3.1%. According to the ACR, ACS, and NCCN guidelines, an annual breast MRI exam along with mammogram is recommended if the patient's lifetime risk is 20% or greater. This exam was interpreted at Station ID: [id number]. NOTE: For mammograms, a report in lay terms will be sent to the patient. Approximately 15% of breast malignancies will not be visualized mammographically. In the management of a palpable breast mass, a negative mammogram must not discourage biopsy of a clinically suspicious lesion. Electronically Signed By: Asia ochoa/flory:07/25/2023 12:58:34 letter sent: Normal Exam ACR BI-RADS Category 1: Negative 3341F
== END ==
LOC: MAMMO 08:24
PROVIDERS: Family Provider Internal Medicine; PCP Internal Medicine; Referring Provider Internal Medicine; Visit Provider Internal Medicine
DX: Z12.31 Encounter for screening mammogram for malignant neoplasm of breast (principal); R92.323 Mammographic fibroglandular density, bilateral breasts
CPT/HCPCS: 77063; 77067

== ENCOUNTER 2023-12-28 18:27 | Emergency (ER) | payer MEDICARE, SELFPAY ==
[2023-12-28 18:34] VITALS: BP 142/75; PULSE 81; RESP 16; TEMP 36.6; O2SAT 98; BMI 31.4
--- NOTE | 2023-12-28 18:45 | EKG_ITS ---
[facility] [address] [place] [id number] Test Date: 2023-12-28 Pat Name: Gema Garcia Department: [facility] Room: Gender: Female Medical Sonographer: ROBYN DEVINE : 1950 Requested By: Order Number: [id number] Reading MD: Robe Cardozo Measurements Intervals Casey Rate: 86 P: -8 MA: 164 QRS: -14 QRSD: 88 T: -15 QT: 378 QTc: 452 Interpretive Statements Normal sinus rhythm Minimal voltage criteria for LVH, may be normal variant ( R in aVL ) Inferior infarct , age undetermined Electronically Signed On 01-03-2024 8:59:06 PDT by Robe Cardozo
--- NOTE | 2023-12-28 18:49 | DI.RAD.S_ITS ---
PROCEDURE: XR CHEST 1V INDICATIONS: chest pain TECHNIQUE: One view of the chest was acquired. COMPARISON: [facility], CR, XR CHEST 1V, 04/08/2018, 13:32. FINDINGS: Surgical changes and devices: Partially seen shoulder arthroplasty Lungs and pleura: Low lung volumes. Mild right infrahilar opacity is present. No drainable effusions. Mediastinum: Heart size is at the upper limit of normal. Bones and chest wall: Rightward spinal curvature. IMPRESSION: Limited single view radiograph with low lung volumes. Possible right infrahilar opacity, possibly atelectasis or airspace disease. Consider future imaging surveillance to assess for resolution. Dictated by: Francisco Spaulding M.D. on 12/28/2023 at 20:15 Approved by: Francisco Spaulding M.D. on 12/28/2023 at 20:16
[2023-12-28 19:44] LABS: Add Manual Diff / Slide Review NO; Basophils Absolute Auto 0 /uL (0-100); Basophils Percent Auto 0.6 % (0-2); Eosinophils Absolute Auto 100 /uL (0-450); Hematocrit 40.4 % (36-46); Hemoglobin 13.6 g/dL (12.0-16.0); Lymphocytes Absolute Auto 1000 /uL (1100-4500); Lymphocytes Percent Auto 18.2 % (25-40); Mean Corpuscular HGB Conc 33.7 % (30-36); Mean Corpuscular Hemoglobin 28.3 PG (26-34); Mean Corpuscular Volume 83.9 fL (80-100); Monocytes Absolute Auto 500 /uL (0-900); Monocytes Percent Auto 7.9 % (3-14); Neutrophils Absolute Auto 4100 /uL (1500-7000); Neutrophils Percent Auto 72.3 % (50-75); Platelet Count 144 X10^3/uL (150-400); Red Blood Cell Count 4.82 X10^6/uL (4.0-5.2); Red Cell Distribution Width 14.8 % (11.6-14.8); White Blood Cell Count 5.7 X10^3/uL (4.5-11.0)
[2023-12-28 19:55] LABS: Creatine Kinase 57 U/L (30-135); Lipase 57 U/L (23-300)
[2023-12-28 20:06] LABS: Troponin I 0.014 ng/mL (0.01-0.034)
[2023-12-28 20:07] LABS: Alanine Aminotransferase 32 IU/L (<35); Albumin 4.4 g/dL (3.5-5.0); Albumin Globulin Ratio 1.5 (1.0-2.8); Alkaline Phosphatase 85 U/L (38-126); Aspartate Aminotransferase 32 IU/L (14-36); BUN Creatinine Ratio 34.5 (6-22); Bilirubin Total 0.5 mg/dL (0.2-1.3); Blood Urea Nitrogen 19 mg/dL (7-17); Calcium 9.4 mg/dL (8.4-10.2); Carbon Dioxide 25 mmol/L (22-32); Chloride 107 mmol/L (98-107); Estimated Glomerular Filt Rate > 60 mL/min (>60); Glucose 109 mg/dL (80-110); Potassium 3.9 mmol/L (3.4-5.1); Sodium 139 mmol/L (137-145); Total Protein 7.4 g/dL (6.3-8.2)
[2023-12-28 20:08] LABS: HEMOLYSIS 32 (0-50)
--- NOTE | 2023-12-28 21:08 | ED_ITS ---
HPI - Extremity Problem General Chief complaint: Extremity Problem,Nontraumatic Stated complaint: shoulder and left arm px 2 days Time Seen by Provider: 12/28/23 18:49 Source: patient Mode of arrival: Family Vehicle History of Present Illness HPI Narrative: Patient is a 73-year-old female history of palpitations on metoprolol presenting today with left shoulder pain and some fluttering in her chest. She reports that over the last 3-4 night she has pain in her shoulder. It hurts to sleep on it it hurts to touch it she can move it okay. She does not have this pain all the time it is mostly at nighttime. She denies any sort of injury. She has pain medications at home which she has taken she also states that she is supposed to take metoprolol but has for gotten last couple of days. She has no known history of coronary artery disease or CVA. Related Data Previous Rx's Medication Instructions Recorded gabapentin 100 mg capsule 100 mg PO Q8H shingles #20 caps 04/08/18 Allergies Allergy/AdvReac Type Severity Reaction Status Date / Time codeine Allergy Verified 04/08/18 13:16 solifenacin [From [facility]] Allergy Verified 04/08/18 13:16 Patient History Medical History History of kidney stones History of diverticulitis of colon Osteoarthritis Overactive bladder Chronic colitis Diabetes mellitus type II, non insulin dependent Hyperlipidemia GERD (gastroesophageal reflux disease) Surgical History History of lumbar spinal fusion H/O bilateral hip replacements H/O: hysterectomy History of colon resection History of bladder suspension procedure Social History Smoking Status: Former smoker Smoking Status: Former smoker alcohol intake frequency: 0-2 drinks per day Substance Use Type: does not use Exam Initial Vital Signs Initial Vital Signs: Vital Signs Temperature 97.8 F 12/28/23 18:34 Pulse Rate 81 12/28/23 18:34 Respiratory Rate 16 12/28/23 18:34 Blood Pressure 142/75 H 12/28/23 18:34 Pulse Oximetry 98 12/28/23 18:34 Oxygen Delivery Method Room Air 12/28/23 18:34 GENERAL: Alert pleasant 73-year-old female and in no acute distress. HEENT: Head atraumatic,EOMI, pupils reactive, face symmetric, moist mucous membranes CARDIOVASCULAR: Regular rate and rhythm without murmurs, rubs or gallops. RESPIRATORY: Breath sounds equal bilaterally, no wheezes rales or rhonchi. ABDOMEN: Soft, nontender. Normoactive bowel sounds all 4 quadrants. No guarding or rebound. EXTREMITIES: Normal range of motion, no clubbing or edema. Neurovascularly intact Left shoulder full range of motion sensation deltoid intact no obvious deformity NEUROLOGICAL: Alert and oriented x4.Normal gait and speech. SKIN: Warm, dry, no laceration, no petechiae, no rashes or lesions. Course Orders Ordered: ED Orders 12/28/23 19:36 Complete Blood Count AUTO DIFF Stat Comprehensive Metabolic Panel Stat Lipase Stat Troponin & CK Cardiac Panel Stat Discontinued Medications Aspirin (Aspirin 81 Mg Chew Tab) 324 mg PO NOW ONE Stop: 12/28/23 18:50 Vital Signs Vital signs: Vital Signs - 8 hr 12/28/23 21:57 Pulse Rate 69 Respiratory Rate 16 Blood Pressure 149/73 H Pulse Oximetry 96 Oxygen Delivery Method Room Air MDM - Extremity (Nontraumatic) Lab Data 12/28/23 19:36 12/28/23 19:36 Labs: Lab Results 12/28/23 Range/Units 19:36 WBC 5.7 (4.5-11.0) X10^3/uL RBC 4.82 (4.0-5.2) X10^6/uL Hgb 13.6 (12.0-16.0) g/dL Hct 40.4 (36-46) % MCV 83.9 (80-100) fL MCH 28.3 (26-34) PG MCHC 33.7 (30-36) % RDW 14.8 (11.6-14.8) % Plt Count 144 L (150-400) X10^3/uL Neut % (Auto) 72.3 (50-75) % Lymph % (Auto) 18.2 L (25-40) % Bollinger % (Auto) 7.9 (3-14) % Eos % (Auto) 1.0 L (2-4) % Baso % (Auto) 0.6 (0-2) % Neut # (Auto) 4100 (8268-7845) /uL Lymph # (Auto) 1000 L (1860-0020) /uL Bollinger # (Auto) 500 (0-900) /uL Eos # (Auto) 100 (0-450) /uL Baso # (Auto) 0 (0-100) /uL Sodium 139 (137-145) mmol/L Potassium 3.9 (3.4-5.1) mmol/L Chloride 107 (98-107) mmol/L Carbon Dioxide 25 (22-32) mmol/L BUN 19 H (7-17) mg/dL Creatinine 0.55 (0.52-1.04) mg/dL Estimated GFR > 60 (>60) mL/min BUN/Creatinine Ratio 34.5 H (6-22) Glucose 109 (80-110) mg/dL Calcium 9.4 (8.4-10.2) mg/dL Total Bilirubin 0.5 (0.2-1.3) mg/dL AST 32 (14-36) IU/L ALT 32 (<35) IU/L Alkaline Phosphatase 85 (38-126) U/L Total Creatine Kinase 57 (30-135) U/L Troponin I 0.014 (0.01-0.034) ng/mL Total Protein 7.4 (6.3-8.2) g/dL Albumin 4.4 (3.5-5.0) g/dL Globulin 3.0 (1.7-4.1) g/dL Albumin/Globulin Ratio 1.5 (1.0-2.8) Lipase 57 (23-300) U/L Imaging Data Chest x-ray: Radiologist's Impression: PROCEDURE: XR CHEST 1V INDICATIONS: chest pain TECHNIQUE: One view of the chest was acquired. COMPARISON: [facility], , XR CHEST 1V, 04/08/2018, 13:32. FINDINGS: Surgical changes and devices: Partially seen shoulder arthroplasty Lungs and pleura: Low lung volumes. Mild right infrahilar opacity is present. No drainable effusions. Mediastinum: Heart size is at the upper limit of normal. Bones and chest wall: Rightward spinal curvature. IMPRESSION: Limited single view radiograph with low lung volumes. Possible right infrahilar opacity, possibly atelectasis or airspace disease. Consider future imaging surveillance to assess for resolution. Dictated by: Francisco Spaulding M.D. on 12/28/2023 at 20:15 ECG Data Attestation EKG: I personally reviewed and interpreted this ECG as follows: Interpretation: Normal sinus rhythm rate 86 GA interval 164 QRS [address] changes MDM Narrative Medical decision making narrative: Patient 73-year-old female history of cardiac arrhythmia on metoprolol presenting today with left shoulder pain and fluttering in chest. She is currently in sinus rhythm. She has significant pain when sleeping on her shoulder and sometimes hurts to touch it. Not having any pain now. Pain seems to fluctuate denies any recent injury but has had bilateral shoulder replacement. Blood work has been reviewed overall reassuring with a negative troponin Chest x-ray read no acute cardiopulmonary process EKG reviewed as above Patient here having left shoulder pain worse when she lays on it while sleeping. I suspect that this is musculoskeletal. She is full range of motion there has been no injury possible like a bursitis or musculoskeletal issue. She has no numbness or tingling. He has been on the monitor remains in sinus rhythm she has forgot in her been unable to take her metoprolol for last couple of days but she knows that she needs to. At this time symptoms are not consistent with cardiac. Discharge Plan Departure Patient Disposition: Home Clinical Impression: Acute pain of left shoulder, Heart palpitations Instructions: DI for Shoulder Pain Activity Restrictions/Additional Instructions: *You have been diagnosed with left shoulder pain, palpitations *What to do: At the time make sure that you take your metoprolol as prescribed. May try ice increased movement as tolerated. May require further investigation such as MRI or orthopedic evaluation if this continues *Continue to take medications as directed *Follow up with your primary care provider in 2-3 days or call [phone] *Return to ER if you should have increasing pain numbness tingling weakness chest pain heart palpitations or any new, worsening or concerning symptoms Prescriptions: No Action gabapentin 100 mg capsule 100 mg PO Q8H Qty: 20 0RF Rx Instructions: start 1 cap q8h prn pain, increase to 2-3 caps every 8 hours prn pain, do not drive Referrals: Melony Luciano ARNP [Primary Care Provider] - Stand Alone Forms: Patient Portal/API
[2023-12-28 21:57] VITALS: BP 149/73; PULSE 69; RESP 16; O2SAT 96
== END 2023-12-28 22:00 | disposition home or self-care (01) ==
PROVIDERS: Emergency Provider Emergency Medicine; Family Provider Internal Medicine; PCP Internal Medicine
DX: M25.512 Pain in left shoulder (principal); R00.2 Palpitations
CPT/HCPCS: 36415; 71045; 80053; 82550; 83690; 84484; 85025; 93005; 99283; 99284

== ENCOUNTER 2024-04-09 11:36 | Emergency (ER) | payer MEDICARE, SELFPAY ==
[2024-04-09 11:46] VITALS: BP 150/72; PULSE 99; RESP 16; TEMP 36.8; O2SAT 96; BMI 31.4
--- NOTE | 2024-04-09 12:35 | ED_ITS ---
<Statement entered by Robe Hood DO - 04/09/24 17:02> Dr. Hood: I was immediately available in the department for consultation. Documentation has been reviewed. I agree with assessment and plan. HPI - Dizziness General Chief Complaint: Dizziness Stated Complaint: headache, nausea, dizzy Time Seen by Provider: 04/09/24 12:11 Source: patient Mode of arrival: Ambulatory History of Present Illness HPI Narrative: 73-year-old female presents to the ED with 3-4 days of dizziness, nausea. Patient is also complaining of a right-sided, dull headache. Patient describes the dizziness as the room spinning, is aggravated with movements of her head, is intermittent. Patient states that she never gets headaches and that this is new for her. Patient has had attacks of vertigo in the past which she states was linked to crystals in her ears. No new trauma. Patient states that her dizziness started spontaneously as did her headache. No vision changes. No fever, chills, chest pain, shortness of breath. Related Data Previous Rx's Medication Instructions Recorded gabapentin 100 mg capsule 100 mg PO Q8H shingles #20 caps 04/08/18 meclizine 25 mg tablet 25 mg PO BID PRN dizziness 10 days 04/09/24 #20 tabs Allergies Allergy/AdvReac Type Severity Reaction Status Date / Time codeine Allergy Verified 04/09/24 11:52 solifenacin [From Vesicare] Allergy Verified 04/09/24 11:52 Review of Systems Constitutional Constitutional: Denies chills, Denies fatigue, Denies fever(s), Denies frequent falls, Reports headache(s), Denies lethargy and Denies weakness Eyes Eyes: Denies change in vision, Denies eye discharge, Denies irritation and Denies loss of vision ENT Ears, Nose, Mouth, and Throat: Denies change in voice, Reports dizziness, Reports headache(s), Denies neck pain, Denies sore throat and Denies throat swelling Cardiovascular Cardiovascular: Denies chest pain, Denies irregular heart rhythm, Denies lightheadedness, Denies palpitations, Denies dyspnea, Denies dyspnea on exertion and Denies orthopnea Respiratory Respiratory: Denies cough, Denies dyspnea, Denies dyspnea on exertion and Denies wheezing Gastrointestinal Gastrointestinal: Denies abdominal pain, Denies change in bowel habits, Denies diarrhea, Reports nausea and Denies vomiting Musculoskeletal Musculoskeletal: Denies neck pain and Denies numbness Integumentary/Breasts Skin/Breast: Denies pruritus, Denies erythema, Denies rash and Denies wounds Neurologic Neurologic: Denies behavioral changes, Denies confusion, Reports dizziness, Denies frequent falls, Reports headache(s), Denies loss of vision, Denies numbness and Denies weakness Psychiatric Psychiatric: Denies anxiety, Denies behavioral changes, Denies confusion, Denies depression, Denies homicidal ideation and Denies suicidal ideation Endocrine Endocrine: Denies fatigue, Denies flushing and Denies palpitations Hematologic/Lymphatic Hematologic/Lymphatic: Denies easy bruising Allergic/Immunologic Allergic/Immunologic: Denies urticaria, Denies throat swelling and Denies wheezing Patient History Medical History History of kidney stones History of diverticulitis of colon Osteoarthritis Overactive bladder Chronic colitis Diabetes mellitus type II, non insulin dependent Hyperlipidemia GERD (gastroesophageal reflux disease) Surgical History History of lumbar spinal fusion H/O bilateral hip replacements H/O: hysterectomy History of colon resection History of bladder suspension procedure Social History Smoking Status: Former smoker Smoking Status: Former smoker alcohol intake frequency: 0-2 drinks per day Substance Use Type: does not use Exam Narrative Exam Narrative: Const General:?cooperative, healthy appearing and comfortable [facility] Head:?normal to inspection Ears:?hearing grossly normal bilaterally Nose:?external nose normal Face and sinus:?normal facial exam and sinuses nontender Mouth:?oral mucosae normal Throat:?posterior oropharynx normal Eyes General:?appearance normal, both eyes and all related structures Neck Neck:?normal visual inspection and no lymphadenopathy noted Resp Effort & Inspection:?normal respiratory effort Auscultation:?clear to auscultation bilaterally Cardio Rate:?regular rate Rhythm:?regular rhythm Neuro General:?patient alert, patient awake and patient oriented x3; PERRLA; CN 1 through 12 intact bilaterally; gait is normal; negative [id number]; neurologically intact Initial Vital Signs Initial Vital Signs: Vital Signs Temperature 98.2 F 04/09/24 11:46 Pulse Rate 99 H 04/09/24 11:46 Respiratory Rate 16 04/09/24 11:46 Blood Pressure 150/72 H 04/09/24 11:46 Pulse Oximetry 96 04/09/24 11:46 Oxygen Delivery Method Room Air 04/09/24 11:46 Course Orders Ordered: ED Orders 04/09/24 12:42 CT head/brain wo con Stat Discontinued Medications Acetaminophen (Acetaminophen 325 Mg Tablet) 975 mg PO NOW ONE Stop: 04/09/24 12:45 Last Admin: 04/09/24 13:09 Dose: 975 mg Documented By: PRANAY Ketorolac Tromethamine (Ketorolac 30 Mg/Ml Vial) 30 mg IM NOW ONE Stop: 04/09/24 13:53 Last Admin: 04/09/24 14:23 Dose: 30 mg Documented By: CARLOS Meclizine HCl (Meclizine Hcl 12.5 Mg Tablet) 25 mg PO NOW ONE Stop: 04/09/24 12:45 Last Admin: 04/09/24 13:09 Dose: 25 mg Documented By: PRANAY Ondansetron HCl (Ondansetron 4 Mg Odt) 4 mg SL NOW ONE Stop: 04/09/24 12:46 Last Admin: 04/09/24 13:09 Dose: 4 mg Documented By: PRANAY Vital Signs Vital signs: Vital Signs - 8 hr 04/09/24 11:46 Temperature 98.2 F Pulse Rate 99 H Respiratory Rate 16 Blood Pressure 150/72 H Pulse Oximetry 96 Oxygen Delivery Method Room Air MDM - Dizziness MDM Narrative Medical decision making narrative: 73-year-old female presents to the ED with 3-4 days of dizziness, nausea, hea dache. Concern for BPPV versus mass versus other intracranial etiology versus other. Will obtain CT head given that it is a new type of headache. Will give meclizine, Zofran, Tylenol for symptoms. Will reassess. CT scan without acute findings. Patient was also given ketorolac for the headache. Patient's symptoms significantly improved with meclizine, Zofran, Tylenol, ketorolac. Prescribed meclizine. Recommend follow-up with PCP as soon as possible for further evaluation and physical therapy referrals. ED return precautions discussed with patient. Patient verbalized understanding. Medical records reviewed: Yes Discharge Plan Departure Patient Disposition: Home Clinical Impression: Vertigo Headache Qualifiers: Headache type: unspecified Headache chronicity pattern: acute headache Intractability: not intractable Qualified Code(s): R51.9 - Headache, unspecified Instructions: DI for Vertigo, DI for Headache Activity Restrictions/Additional Instructions: You were evaluated in the ED today for dizziness and headache. Your CT scan was normal. Your symptoms improved with meclizine, Tylenol, ketorolac. You are being prescribed meclizine to take at home for the dizziness. Please follow-up with your PCP as soon as possible for further evaluation and physical therapy referrals. Return to the ED if you have worsening symptoms, persistent v omiting, worsening dizziness. Prescriptions: New meclizine 25 mg tablet 25 mg PO BID PRN (Reason: dizziness) 10 Days Qty: 20 0RF No Action gabapentin 100 mg capsule 100 mg PO Q8H Qty: 20 0RF Rx Instructions: start 1 cap q8h prn pain, increase to 2-3 caps every 8 hours prn pain, do not drive Referrals: Melony Luciano ARNP [Primary Care Provider] - Stand Alone Forms: Patient Portal/API
--- NOTE | 2024-04-09 12:42 | DI.CT.S_ITS ---
PROCEDURE: CT HEAD/BRAIN WO CON INDICATIONS: New headache, dizziness TECHNIQUE: Noncontrast 4.5 mm thick angled axial sections acquired from the foramen magnum to the vertex, with coronal and sagittal reformats. For radiation dose reduction, the following was used: automated exposure control, adjustment of mA and/or kV according to patient size. COMPARISON: None. FINDINGS: Image quality: Diagnostic. CSF spaces: Basal cisterns are patent. No extra-axial fluid collections. The ventricles are symmetric in size and shape. Brain: No intracranial bleeds or masses. There is cerebral volume loss for age, with resultant ventricular and sulcal prominence. There are periventricular and deep white matter chronic small vessel ischemic changes. There is intracranial internal carotid artery atherosclerosis. Skull and face: Calvarium and visualized facial bones appear intact, without suspicious lesions. Sinuses: Visualized sinuses and mastoids are clear. IMPRESSION: No acute intracranial pathology. Dictated by: Sourav Cruz M.D. on 04/09/2024 at 13:20 Approved by: Sourav Cruz M.D. on 04/09/2024 at 13:21
[2024-04-09] MEDS: ONDANSETRON 4 MG ODT SL (13:09)
[2024-04-09] MEDS: MECLIZINE HCL 12.5 MG TABLET 25 MG PO (13:09)
[2024-04-09] MEDS: ACETAMINOPHEN 325 MG TABLET 975 MG PO (13:09)
[2024-04-09] MEDS: KETOROLAC 30 MG/ML VIAL IM (14:23)
[2024-04-09 15:21] VITALS: BP 148/70; PULSE 88; RESP 16; TEMP 36.8; O2SAT 99
== END 2024-04-09 15:22 | disposition home or self-care (01) ==
PROVIDERS: Emergency Provider Student in an Organized Health Care Education/Training Program; Family Provider Internal Medicine; PCP Internal Medicine
DX: R42 Dizziness and giddiness (principal); R51.9 Headache, unspecified; R11.0 Nausea
CPT/HCPCS: 70450; 96372; 99284; J1885

== ENCOUNTER → 2024-06-01 07:08 | Outpatient (CLI) | payer MEDICARE, SELFPAY ==
--- NOTE | 2024-06-01 07:23 | DI.RAD.S_ITS ---
PROCEDURE: XR FOOT RT 2V INDICATIONS: foot pain TECHNIQUE: 2 views of the foot were acquired. COMPARISON: None. FINDINGS: Bones: No fractures or dislocations. Mild midfoot degenerative change and 1st MTP degenerative change. No suspicious bony lesions. Soft tissues: No tibiotalar joint effusion. Achilles tendon appears normal. IMPRESSION: Degenerative change. Dictated by: Sourav Cruz M.D. on 06/01/2024 at 10:30 Approved by: Sourav Cruz M.D. on 06/01/2024 at 10:35
[2024-06-01 08:00] LABS: Cholesterol 160 mg/dL (140-199); HDL Cholesterol 54 mg/dL (40-60); LDL Cholesterol Calculated 61 mg/dL (<100); Triglycerides 227 mg/dL (35-150)
[2024-06-01 08:24] LABS: Hemoglobin A1C% w Est Avg Glu 6.1 % (4.0-6.0)
== END ==
LOC: LAB 07:08 → RAD 07:23
PROVIDERS: Family Provider Internal Medicine; PCP Family Medicine; Referring Provider Family Medicine; Visit Provider Family Medicine
DX: Z13.1 Encounter for screening for diabetes mellitus (principal); E78.5 Hyperlipidemia, unspecified; M79.673 Pain in unspecified foot
CPT/HCPCS: 36415; 73620; 80061; 83036

== ENCOUNTER → 2024-08-22 12:40 | Outpatient (CLI) | payer MEDICARE, SELFPAY ==
--- NOTE | 2024-08-22 | DI.MG.S_ITS ---
BILATERAL DIGITAL SCREENING MAMMOGRAM 3D/2D WITH CAD: 08/22/2024 CLINICAL: Routine screening. Comparison is made to exams dated: 07/23/2023 mammogram, 07/21/2022 mammogram, and 05/29/2021 mammogram - [facility]. There are scattered areas of fibroglandular density (category b / 25%-50% glandular tissue). Current study was also evaluated with a Computer Aided Detection (CAD) system. No significant masses, calcifications, or other findings are seen in either breast. There has been no significant interval change. IMPRESSION: NEGATIVE There is no mammographic evidence of malignancy. A 1 year screening mammogram is recommended. Based on the Tyrer Cuzick model (a risk assessment model) the patient's lifetime risk is 4.6% and her 10 year risk is 3.2%. According to the ACR, ACS, and NCCN guidelines, an annual breast MRI exam along with mammogram is recommended if the patient's lifetime risk is 20% or greater. This exam was interpreted at Station ID: [id number]. NOTE: For mammograms, a report in lay terms will be sent to the patient. Approximately 15% of breast malignancies will not be visualized mammographically. In the management of a palpable breast mass, a negative mammogram must not discourage biopsy of a clinically suspicious lesion. Electronically Signed By: Antonio aguirre/flory:08/23/2024 06:18:42 letter sent: Normal Exam ACR BI-RADS Category 1: Negative
== END ==
PROVIDERS: Family Provider Internal Medicine; PCP Family Medicine; Referring Provider Family Medicine; Visit Provider Family Medicine
DX: Z12.31 Encounter for screening mammogram for malignant neoplasm of breast (principal)
CPT/HCPCS: 77063; 77067

== ENCOUNTER → 2024-10-23 12:57 | Outpatient (CLI) | payer MEDICARE, SELFPAY ==
--- NOTE | 2024-10-23 12:59 | DI.RAD.S_ITS ---
PROCEDURE: XR DEXA AXIAL SKELETON INDICATIONS: screening for osteoporosis COMPARISON: [facility], , XR DEXA AXIAL SKELETON, 10/16/2020, 13:34. [facility], CR, XR DEXA AXIAL SKELETON, 01/30/2018, 13:44. FINDINGS: Please note that comparison to prior DEXA scans is limited due to different imaging techniques (Hologic vs GE). Lumbar Spine: Bone mineral density 1.045 g/cm2, T score 0, previously 0.6. Left Forearm: Bone mineral density 0.586 g/cm2, T score -1.8 Fracture Risk Calculation (when applicable): Not applicable (T score greater or equal to -1.0 to: NORMAL) (T score from -1.1 to -2.4: OSTEOPENIA) (T score less than or equal to -2.5: OSTEOPOROSIS) IMPRESSION: 1. Normal bone density of the lumbar spine. 2. Osteopenia of the left forearm. Follow-up guidelines as follows: Osteoporosis: Consider a repeat DEXA and Vertebral Fracture Assessment (VFA) exam in 2 years or sooner if medically necessary, to reassess this patient's status. Osteopenia: Consider a repeat DEXA in 2-3 years to reassess this patient's status, or if there is a new clinical indication. Normal: Consider a repeat DEXA in 5 years or sooner, or if there is a new clinical indication. All treatment decisions require clinical judgment and consideration of individual patient factors, including patient preferences, comorbidities, previous drug use, risk factors not captured in the FRAX model (e.g., frailty, falls, vitamin D deficiency, increased bone turnover, interval significant decline in bone density ) and possible under- or over-estimation of fracture risk by FRAX. In addition, the NOF Guide recommends that FDA-approved medical therapies be considered in postmenopausal women and men age >= 50 years with a: * Hip or vertebral (clinical or morphometric) fracture * T-score of <=-2.5 at the spine or hip * Ten-year fracture probability by FRAX of >= 3% for hip fracture or >=20% for major osteoporotic fracture. Dictated by: Preston Piedra M.D. on 10/23/2024 at 16:18 Approved by: Preston Piedra M.D. on 10/23/2024 at 16:20
--- NOTE | 2024-10-23 13:00 | DI.RAD.S_ITS ---
PROCEDURE: XR FOOT 2V WB RIGHT INDICATIONS: FOOT PAIN TECHNIQUE: 3 weight-bearing views acquired of the foot. COMPARISON: None. FINDINGS: Bones: Nondisplaced remote avulsion fracture of the dorsal navicular appreciated. Mild pes planus and metatarsus abductus noted. Mild hammertoe deformities 2nd through 5th digits. Joints: Mild degeneration 1st MTP and all interphalangeal joints. Moderate navicular cuneiform degeneration Soft tissues: Mild diffuse soft tissue swelling is likely edema IMPRESSION: Chronic findings as described Dictated by: Jasmeet Wilkerson M.D. on 10/24/2024 at 12:30 Approved by: Jasmeet Wilkerson M.D. on 10/24/2024 at 12:32
--- NOTE | 2024-10-23 13:00 | DI.RAD.S_ITS ---
PROCEDURE: XR FOOT LT 2V INDICATIONS: SCREENING TECHNIQUE: 3 views of the foot were acquired. COMPARISON: [facility], CR, XR FOOT RT 2V, 06/01/2024, 7:30. FINDINGS: Bones: Mild cortical thickening along the lateral aspect of the 4th metacarpal diaphysis is almost certainly benign. Mild pes planus and hammertoe deformities 2nd through 5th digits appreciated Joints: Mild degenerative change in the 2nd through 5th interphalangeal and the navicular cuneiform joints Soft tissues: Mild diffuse soft swelling likely reflects edema IMPRESSION: Chronic findings as described Dictated by: Jasmeet Wilkerson M.D. on 10/24/2024 at 12:32 Approved by: Jasmeet Wilkerson M.D. on 10/24/2024 at 12:33
== END ==
LOC: RAD 12:58
PROVIDERS: Family Provider Internal Medicine; PCP Family Medicine; Referring Provider Family Medicine; Visit Provider Family Medicine
DX: M81.0 Age-related osteoporosis without current pathological fracture (principal); M79.671 Pain in right foot; M79.672 Pain in left foot; M20.42 Other hammer toe(s) (acquired), left foot; M20.41 Other hammer toe(s) (acquired), right foot; M21.42 Flat foot [pes planus] (acquired), left foot; M21.41 Flat foot [pes planus] (acquired), right foot; M19.071 Primary osteoarthritis, right ankle and foot; M79.89 Other specified soft tissue disorders; S92.254S Nondisplaced fracture of navicular [scaphoid] of right foot, sequela
CPT/HCPCS: 73620; 77080

== ENCOUNTER 2025-03-15 10:45 | Outpatient (RCR) | payer MEDICARE, SELFPAY ==
--- NOTE | 2025-01-14 18:11 | PT.OIE ---
Current Diagnoses Dorsalgia, unspecified (01/14/25) Unspecified injury of lower back, initial encounter (01/14/25) Past Medical History (Last Updated 09/21/24 @ 12:48 by Kathrin Carlisle MD) Chronic colitis Colon polyps Crohn disease Diabetes mellitus type II, non insulin dependent GERD (gastroesophageal reflux disease) History of diverticulitis of colon History of kidney stones Hyperlipidemia Nephrolithiasis Osteoarthritis Overactive bladder Paroxysmal atrial fibrillation Past Surgical History (Last Reviewed 04/09/24 @ 12:54 by Kacy Wong PA-C) H/O bilateral hip replacements H/O: hysterectomy History of bladder suspension procedure History of colon resection History of lumbar spinal fusion Visit Care Team Role Provider Type AGGIE Hunter Family Provider Advanced Sound Technician Supervisor Specialty: Family Practice Address: [address] [place] [address], [id number] Email: [email or web address] Kathrin Carlisle MD Attending Provider Physician Primary Care Provider Referring Provider Specialty: [facility] [employer] Address: [address] [place] [address], [address] Fax: Email: [email or web address] Physical Therapy Initial Evaluation PT-OP-A Visit Information Start: 12/27/24 17:08 Freq: Status: Active Protocol: Document 01/14/25 10:54 [facility] (Rec: 01/14/25 11:31 [facility] [id number]) Out-Patient Physical Therapy Visit Information Visit Information Visit Type Initial Evaluation Visit Start Time 10:52 Visit Stop Time 11:32 Visit Number 1 (PN due 02/14) Number of OVER THE RO[address] DRIVER Visits 0 PT-OP-B Current Condition Start: 12/27/24 17:08 Freq: Status: Active Protocol: Document 01/14/25 10:54 [facility] (Rec: 01/14/25 11:31 [facility] [id number]) Current Condition History of Current Condition Onset Date Jul worsenening Current Complaints R LB and B quad and groin History of Current Pt reports back pain happens at night in LB and cramps Condition and if turns over. Pulled back in Jul but doesn't remember what she was doing. kicked off shoe in fitting room about 1 month after and irritated her leg. has changed shoes but that didn't help. Pt has 2 spinal fusion surgeries from the L3-5. Had double ablation in Jun. Most of the pain in R side back. had xrays of hips without findings about 2-3 years ago. Backand R foot have arthritis. Pain mostly at night when sleeping and rolling. Better than it was when first saw doctor. Feels when reaching to [employer]. no issues standing extended, or in the kitchen, carrying groceries, no issues w/bending or ADLs, yard work is ok til the end of the day, is careful when lifting things . sitting ext can bother it and extensive housecleaning like bathtubs. Has started some stretching. Walking bothers her legs by 1/2 block and since stretch, she can make it 1 lap. Tries to walk daily, and would typically do 30-45 min. Takes her a long time to get just the block. R lat approach B hips (R 2015, L 2007). C section x2, hysterecotmy, bladder lift, hernia repair, colon resection . Treatment Goals Patient/Caregiver be able roll in bed, be able to go for full walks(1-1.5 Goals ), be able to stand from chair comfortably. PT-OP-C Subjective Start: 12/27/24 17:08 Freq: Status: Active Protocol: Document 01/14/25 10:54 [facility] (Rec: 01/14/25 18:10 [facility] [id number]) Patient Questionnaires Oswestry Low Back Index Oswestry Score 32% PT-OP-D Balance Start: 12/27/24 17:08 Freq: Status: Active Protocol: Document 01/14/25 10:54 [facility] (Rec: 01/14/25 11:31 [facility] [id number]) Balance Tests Single Limb Standing Single Limb- Right 8 sec Single Limb- Left 8 sec PT-OP-G Mobility & Gait Start: 12/27/24 17:08 Freq: Status: Active Protocol: Document 01/14/25 10:54 [facility] (Rec: 01/14/25 11:31 [facility] [id number]) OP Gait Assessment Comments Gait Comments R pelvic shear, dec R stance time, occ dec foot clearance LLE, lat leaning, dec push off B PT-OP-J Posture/Palpation/Skin Start: 12/27/24 17:08 Freq: Status: Active Protocol: Document 01/14/25 10:54 [facility] (Rec: 01/14/25 11:[id number] Posture Evaluation [facility] Postural Classification System Lukas Postural Posterior/Anterior Classifications Lumbar Protective 0 Mechanism Left AP Lumbar Protective 1 Mechanism Right AP Lumbar Protective 1 Mechanism Left PA Lumbar Protective 0 Mechanism Right PA Comments Posture Comments R pelvic shear, R iliac crest higher, equal greater troch, inc kyphosis and fwd head, R IR >L PT-OP-K Range of Motion Start: 12/27/24 17:08 Freq: Status: Active Protocol: Document 01/14/25 10:54 [facility] (Rec: 01/14/25 11:31 [id number]) Lumbar Spine Range of Motion Lumbar Spine Active Percentage Flexion 40 Extension 25 Rotation Left 25 Rotation Right 25 Lateral Flexion Left 25 Lateral Flexion 25 Right Comments mid thigh flex w/pelvis blocked, to ground w/o; pain L back w/ext, pulls B ext, pain ipsilat w/SB PT-OP-L Special Tests Start: 12/27/24 17:08 Freq: Status: Active Protocol: Document 01/14/25 10:54 [facility] (Rec: 01/14/25 11:[id number]) Special Tests Lumbar Spine Special Tests Hai Test Results positive R quad tigthness Slump Test Results neg slump and ext sit SLR Test Results neg B PT-OP-M Strength Start: 12/27/24 17:08 Freq: Status: Active Protocol: Document 01/14/25 10:54 [facility] (Rec: 01/14/25 11:31 [facility] [id number]) Hip Strength Hip Manual Muscle Testing Right Flexion (L2) 3+ Fair+ Extension (S1) 3+ Fair+ External Rotation 3 Fair Internal Rotation 5 Normal Comments pain abd Left Flexion (L2) 3 Fair Abduction 3+ Fair+ External Rotation 3 Fair Internal Rotation 4 Good Comments pain flex and IR and ER Knee Strength Knee Manual Muscle Testing Right Flexion (S2) 5 Normal Extension (L3) 5 Normal Left Flexion (S2) 5 Normal Extension (L3) 5 Normal Ankle/Foot Strength Ankle and Foot Manual Muscle Testing B Dorsiflexion (L4) 5 Normal Plantarflexion (S1) 5 Normal Comments tested seated PT-OP-Q Treatments Start: 12/27/24 17:08 Freq: Status: Active Protocol: Document 01/14/25 10:54 [facility] (Rec: 01/14/25 11:31 [facility] [id number]) Therapeutic Exercises Standing Exercises squat Standing Exercise mini at counter Name Side bilateral Equipment Used 12 Reps/Minutes cues comfortable range, butt back ext Standing Exercise bent over hip hinge to counter Name Side bilateral Reps/Minutes 10 Comments alt cues core engaged abd Standing Exercise alt Name Side bilateral Reps/Minutes 15 Comments cues posture and control PT-OP-T Assessment and Plan Start: 12/27/24 17:08 Freq: Status: Active Protocol: Document 01/14/25 10:54 [facility] (Rec: 01/14/25 11:31 [facility] [id number]) Physical Therapy Assessment Rehab Potential Rehabilitation Good Potential Evaluation Complexity Number of Personal 3 or More Factors/ Comorbidities Number of Body 4 or More Systems Impaired Clinical Evolving Presentation at Evaluation Impairments Impairments Activity Tolerance,Balance,Functional Activities, Functional Mobility,Gait,Pain,Posture,ROM,Soft Tissue Mobility,Strength Goals balance Short Term Goal (STG Pt will be able to do SLS at least 10 sec B ) STG Duration 02/14 Retirement Goal (LTG) Pt will be able to do SLS at least 15 sec B to show improved stability and balance activities Short Term Goal (STG Pt will be able to roll in bed and do sit to stand from ) chair w/o inc pain in back, hips or legs. STG Duration 02/18 Cargo And Container Inspector Goal (LTG) Pt will be able to resume full length walks (~1 mile) and bridging in bed w/o inc pain in back, hips or legs . LTG Duration 03/25 strength Short Term Goal (STG Pt will be indep w/HEP ) STG Duration 02/14 Cargo And Container Inspector Goal (LTG) pt will score at least 3/5 on LPM all planes and at least 4+/5 on all BLE MMT to show improved stability in order to be able to do ADLs w/o inc pain. LTG Duration 03/25 Assessment Summary Assessment Pt presents w/LBP and B ant hip/thigh pain that inc w/ rolling in bed, transitions in bed, in/out of bed, sit to stand and with gait. She has significantly dec lumbar spine mobility and dec core and hip strength likely related to this. She has a long surgical hx including 2 lumbar fusions, B SHAWN (lat approach), hysterectomy, 2 c-sections along w/shoulder hand and other region surgeries. Scar tissue from these surgeries likely also play a role in her pain. 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 Neg slump and SLR testing and pt demonstrates good HS length and mild quad tightness but significant dec hip flex, ER, and IR. She would benefit from skilled PT to address her mobility deficits and dec pain w/activity. Physical Therapy Plan Frequency and Duration Frequency of 2x/Week Treatment Duration of 10 treatment (weeks) Plan of Care Start 01/14/25 Date Plan of Care End 03/25/25 Date Therapeutic Interventions Therapeutic Balance Training,Gait Training,Home Exercise Program, Interventions Joint Mobilizations,Patient/Caregiver Education,Self- Care/Home Management,Soft Tissue Mobilization,Taping, Therapeutic Activities,Therapeutic Exercises Modalities Cold Pack/Ice Massage,Electric Stimulation,Hot Packs, Infrared Therapy,Ultrasound Next Visit Focus/Plan Next Note Type Treatment Note Next Visit Plan review exercises, manual to hips and innominate, balance exercises, core strengthening, hip strength
--- NOTE | 2025-01-14 18:11 | PT.OPPOC ---
Physical, Occupational & Speech Therapy At [facility] Current Diagnoses Dorsalgia, unspecified (01/14/25) Unspecified injury of lower back, initial encounter (01/14/25) Visit Care Team Role Provider Type AGGIE Hunter Family Provider Advanced Director Medical Economics Specialty: Family Practice Address: [address], [address], [place], [address] Email: [email or web address] Kathrin Carlisle MD Attending Provider Physician Primary Care Provider Referring Provider Specialty: Family Practice MAT MAKER Address: [address] [facility], [place], [address] Fax: Email: [email or web address] Plan Of Care PT-OP-B Current Condition Start: 12/27/24 17:08 Freq: Status: Active Protocol: Document 01/14/25 10:54 [facility] (Rec: 01/14/25 11:31 [facility] [id number]) Current Condition History of Current Condition Onset Date Fe worsenening Current Complaints R LB and B quad and groin History of Current Pt reports back pain happens at night in LB and cramps Condition and if turns over. Pulled back in Fe but doesn't remember what she was doing. kicked off shoe in fitting room about 1 month after and irritated her leg. has changed shoes but that didn't help. Pt has 2 spinal fusion surgeries from the s L3-5. Had double ablation in Jun. Most of the pain in R side back. had xrays of hips without findings about 2-3 years ago. Backand R foot have arthritis. Pain mostly at night when sleeping and rolling. Better than it was when first saw doctor. Feels when reaching to prune. no issues standing extended, or in the kitchen, carrying groceries, no issues w/bending or ADLs, yard work is ok til the end of the day, is careful when lifting things . sitting ext can bother it and extensive housecleaning like bathtubs. Has started some stretching. Walking bothers her legs by 1/2 block and since stretch, she can make it 1 lap. Tries to walk daily, and would typically do 30-45 min. Takes her a long time to get just the block. R lat approach B hips (R 2015, L 2007). C section x2, hysterecotmy, bladder lift, hernia repair, colon resection . Treatment Goals Patient/Caregiver be able roll in bed, be able to go for full walks(1-1.5 Goals ), be able to stand from chair comfortably. PT-OP-T Assessment and Plan Start: 12/27/24 17:08 Freq: Status: Active Protocol: Document 01/14/25 10:54 [facility] (Rec: 01/14/25 11:31 [facility] [id number]) Physical Therapy Assessment Rehab Potential Rehabilitation Good Potential Evaluation Complexity Number of Personal 3 or More Factors/ Comorbidities Number of Body 4 or More Systems Impaired Clinical Evolving Presentation at Evaluation Impairments Impairments Activity Tolerance,Balance,Functional Activities, Functional Mobility,Gait,Pain,Posture,ROM,Soft Tissue Mobility,Strength Goals balance Short Term Goal (STG Pt will be able to do SLS at least 10 sec B ) STG Duration 02/14 Steel Checker Goal (LTG) Pt will be able to do SLS at least 15 sec B to show improved stability and balance activities Short Term Goal (STG Pt will be able to roll in bed and do sit to stand from ) chair w/o inc pain in back, hips or legs. STG Duration 02/18 Prison Goal (LTG) Pt will be able to resume full length walks (~1 mile) and bridging in bed w/o inc pain in back, hips or legs . LTG Duration 03/25 strength Short Term Goal (STG Pt will be indep w/HEP ) STG Duration 02/14 Steel Checker Goal (LTG) pt will score at least 3/5 on LPM all planes and at least 4+/5 on all BLE MMT to show improved stability in order to be able to do ADLs w/o inc pain. LTG Duration 03/25 Assessment Summary Assessment Pt presents w/LBP and B ant hip/thigh pain that inc w/ rolling in bed, transitions in bed, in/out of bed, sit to stand and with gait. She has significantly dec lumbar spine mobility and dec core and hip strength likely related to this. She has a long surgical hx including 2 lumbar fusions, B SHAWN (lat approach), hysterectomy, 2 c-sections along w/shoulder hand and other region surgeries. Scar tissue from these surgeries likely also play a role in her pain. 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 Neg slump and SLR testing and pt demonstrates good HS length and mild quad tightness but significant dec hip flex, ER, and IR. She would benefit from skilled PT to address her mobility deficits and dec pain w/activity. Physical Therapy Plan Frequency and Duration Frequency of 2x/Week Treatment Duration of 10 treatment (weeks) Plan of Care Start 01/14/25 Date Plan of Care End 03/25/25 Date Therapeutic Interventions Therapeutic Balance Training,Gait Training,Home Exercise Program, Interventions Joint Mobilizations,Patient/Caregiver Education,Self- Care/Home Management,Soft Tissue Mobilization,Taping, Therapeutic Activities,Therapeutic Exercises Modalities Cold Pack/Ice Massage,Electric Stimulation,Hot Packs, Infrared Therapy,Ultrasound Next Visit Focus/Plan Next Note Type Treatment Note Next Visit Plan review exercises, manual to hips and innominate, balance exercises, core strengthening, hip strength Plan of Care Dates Plan of Care Start Date 01/14/25 Plan of Care End Date 03/25/25 Electronically Signed by: Sola Abbott, PT 01/14/25 9200 If you are in agreement with this Plan of Care, please return a signed and dated copy. I have reviewed this Plan of Care and certify that the skilled therapy services above are required to meet the patient?s needs. Physician Signature Date Printed Name and Credentials Clinical Instructor Signature Printed Name and Credentials
--- NOTE | 2025-01-17 11:36 | PT.OTN ---
Current Diagnoses Dorsalgia, unspecified (01/17/25) Unspecified injury of lower back, initial encounter (01/17/25) Physical Therapy Treatment Note PT-OP-A Visit Information Start: 12/27/24 17:08 Freq: Status: Active Protocol: Document 01/17/25 10:23 [facility] (Rec: 01/17/25 11:35 [facility] [id number]) Out-Patient Physical Therapy Visit Information Visit Information Visit Type Treatment Note Visit Start Time 10:51 Visit Stop Time 11:30 Visit Number 2 Number of PERMIT COORDINATOR Visits 0 PT-OP-B Current Condition Start: 12/27/24 17:08 Freq: Status: Active Protocol: Document 01/14/25 10:54 [facility] (Rec: 01/14/25 11:31 [facility] [id number]) Current Condition History of Current Condition Onset Date Jul worsenening Current Complaints R LB and B quad and groin History of Current Pt reports back pain happens at night in LB and cramps Condition and if turns over. Pulled back in Jul but doesn't remember what she was doing. kicked off shoe in fitting room about 1 month after and irritated her leg. has changed shoes but that didn't help. Pt has 2 spinal fusion surgeries from the L3-5. Had double ablation in Jun. Most of the pain in R side back. had xrays of hips without findings about 2-3 years ago. Backand R foot have arthritis. Pain mostly at night when sleeping and rolling. Better than it was when first saw doctor. Feels when reaching to prune. no issues standing extended, or in the kitchen, carrying groceries, no issues w/bending or ADLs, yard work is ok til the end of the day, is careful when lifting things . sitting ext can bother it and extensive housecleaning like bathtubs. Has started some stretching. Walking bothers her legs by 1/2 block and since stretch, she can make it 1 lap. Tries to walk daily, and would typically do 30-45 min. Takes her a long time to get just the block. R lat approach B hips (R 2015, L 2007). C section x2, hysterecotmy, bladder lift, hernia repair, colon resection . Treatment Goals Patient/Caregiver be able roll in bed, be able to go for full walks(1-1.5 Goals ), be able to stand from chair comfortably. PT-OP-C Subjective Start: 12/27/24 17:08 Freq: Status: Active Protocol: Document 01/17/25 10:23 [facility] ([facility]17/25 [id number]-PT Subjective Patient Comments Patient Comments complance w/exercises w/o issue PT-OP-D Balance Start: 12/27/24 17:08 Freq: Status: Active Protocol: Document 01/14/25 10:54 [facility] (Rec: 01/14/25 11:31 [id number] Balance Tests Single Limb Standing Single Limb- Right 8 sec Single Limb- Left 8 sec PT-OP-G Mobility & Gait Start: 12/27/24 17:08 Freq: Status: Active Protocol: Document 01/14/25 10:54 [facility] (Rec: 01/14/25 11:31 [id number] OP Gait Assessment Comments Gait Comments R pelvic shear, dec R stance time, occ dec foot clearance LLE, lat leaning, dec push off B PT-OP-J Posture/Palpation/Skin Start: 12/27/24 17:08 Freq: Status: Active Protocol: Document 01/14/25 10:54 [facility] (Rec: 01/14/25 11:31 [id number] Posture Evaluation Lukas Postural Classification System Lukas Postural Posterior/Anterior Classifications Lumbar Protective 0 Mechanism Left AP Lumbar Protective 1 Mechanism Right AP Lumbar Protective 1 Mechanism Left PA Lumbar Protective 0 Mechanism Right PA Comments Posture Comments R pelvic shear, R iliac crest higher, equal greater troch, inc kyphosis and fwd head, R IR >L PT-OP-K Range of Motion Start: 12/27/24 17:08 Freq: Status: Active Protocol: Document 01/14/25 10:54 [facility] (Rec: 01/14/25 11:31 [facility] [id number]) Lumbar Spine Range of Motion Lumbar Spine Active Percentage Flexion 40 Extension 25 Rotation Left 25 Rotation Right 25 Lateral Flexion Left 25 Lateral Flexion 25 Right Comments mid thigh flex w/pelvis blocked, to ground w/o; pain L back w/ext, pulls B ext, pain ipsilat w/SB PT-OP-L Special Tests Start: 12/27/24 17:08 Freq: Status: Active Protocol: Document 01/14/25 10:54 [facility] (Rec: 01/14/25 11:31 [facility] [id number]) Special Tests Lumbar Spine Special Tests Hai Test Results positive R quad tigthness Slump Test Results neg slump and ext sit SLR Test Results neg B PT-OP-M Strength Start: 12/27/24 17:08 Freq: Status: Active Protocol: Document 01/14/25 10:54 [facility] (Rec: 01/14/25 11:31 [facility] [id number]) Hip Strength Hip Manual Muscle Testing Right Flexion (L2) 3+ Fair+ Extension (S1) 3+ Fair+ External Rotation 3 Fair Internal Rotation 5 Normal Comments pain abd Left Flexion (L2) 3 Fair Abduction 3+ Fair+ External Rotation 3 Fair Internal Rotation 4 Good Comments pain flex and IR and ER Knee Strength Knee Manual Muscle Testing Right Flexion (S2) 5 Normal Extension (L3) 5 Normal Left Flexion (S2) 5 Normal Extension (L3) 5 Normal Ankle/Foot Strength Ankle and Foot Manual Muscle Testing B Dorsiflexion (L4) 5 Normal Plantarflexion (S1) 5 Normal Comments tested seated PT-OP-Q Treatments Start: 12/27/24 17:08 Freq: Status: Active Protocol: Document 01/17/25 10:23 [facility] (Rec: 01/17/25 11:35 [facility] [id number]) Therapeutic Exercises Supine Exercises isometric Supine Exercise Name SL Side bilateral Reps/Minutes 30 sec Comments cuesDF bridge Supine Exercise Name pelvic tilt to bridge Reps/Minutes 10, 5sec x1 pelvic tilt Reps/Minutes 8 Standing Exercises squat Standing Exercise mini at counter Name Side bilateral Reps/Minutes 12 Comments cues comfortable range, butt back, feet hip width ext Standing Exercise bent over hip hinge to counter Name Side bilateral Resistance lvl 1 at lower leg Reps/Minutes 10 Comments alt cues core engaged abd Standing Exercise alt Name Side bilateral Resistance lvl 1 at lower leg Reps/Minutes 15 Comments cues posture and control Manual Therapy Treatment Consent Patient gave verbal Yes consent for manual treatment Soft Tissue Mobilization hip Body Location R Mobilization Type Rolling Intensity/Depth Moderate Body Position Sidelying LB Body Location R ES, QL Mobilization Type Rolling Intensity/Depth Superficial Body Position Sidelying Joint Mobilizations hip Comments R Er free the ball c/r; L inf glide c/r PT-OP-R Modalities Start: 12/27/24 17:08 Freq: Status: Active Protocol: Document 01/17/25 10:23 [facility] (Rec: 01/17/25 11:36 [facility] [id number]) Hot Pack/Cold Pack Treatment Cold Pack Location lumbar Patient Position Hooklying PT-OP-T Assessment and Plan Start: 12/27/24 17:08 Freq: Status: Active Protocol: Document 01/17/25 10:23 [facility] (Rec: 01/17/25 11:35 [facility] [id number]) Physical Therapy Assessment Goals balance Short Term Goal (STG Pt will be able to do SLS at least 10 sec B ) STG Duration 02/14 Developmental Behavioral Physician Goal (LTG) Pt will be able to do SLS at least 15 sec B to show improved stability and balance activities Short Term Goal (STG Pt will be able to roll in bed and do sit to stand from ) chair w/o inc pain in back, hips or legs. STG Duration 02/18 Custodial Goal (LTG) Pt will be able to resume full length walks (~1 mile) and bridging in bed w/o inc pain in back, hips or legs . LTG Duration 03/25 strength Short Term Goal (STG Pt will be indep w/HEP ) STG Duration 02/14 Custodial Goal (LTG) pt will score at least 3/5 on LPM all planes and at least 4+/5 on all BLE MMT to show improved stability in order to be able to do ADLs w/o inc pain. LTG Duration 03/25 Assessment Summary Assessment Pt did well with progression of new exercises with adding core exercises today. She has significant tightness in different directions for each hip. She had improved L hip flex w/manual and improved R hip ER w/ manual Physical Therapy Plan Frequency and Duration Frequency of 2x/Week Treatment Duration of 10 treatment (weeks) Plan of Care Start 01/14/25 Date Plan of Care End 03/25/25 Date Next Visit Focus/Plan Next Note Type Treatment Note Next Visit Plan review exercises, manual to hips and innominate, balance exercises, core strengthening, hip strength PT-Therapy Code Fee Billing Start: 12/27/24 17:08 Freq: Status: Active Protocol: Document 01/17/25 10:23 [facility] (Rec: 01/17/25 11:35 [facility] [id number]) Physical Therapy Total Visit Minutes 49 PT Charge Codes - Fee KX Modifier Therapy Cap No Exclusion Modifier Therapeutic Exercise (09483) Minutes 23 PT Unit(s) per 15 2 min Manual Therapy (51166) Minutes 16 PT Unit(s) per 15 1 min Hotpacks/Coldpacks (85611) Minutes 10 PT Unit(s) Untimed 0
--- NOTE | 2025-01-22 12:16 | PT.OTN ---
Current Diagnoses Dorsalgia, unspecified (01/22/25) Unspecified injury of lower back, initial encounter (01/22/25) Physical Therapy Treatment Note PT-OP-A Visit Information Start: 12/27/24 17:08 Freq: Status: Active Protocol: Document 01/22/25 11:33 SP (Rec: 01/22/25 11:35 SP [id number]) Out-Patient Physical Therapy Visit Information Visit Information Visit Type Treatment Note Visit Start Time 11:33 Visit Stop Time 12:16 Visit Number 3 Number of REGIONAL LOSS PREVENTION MANAGER Visits 1 PT-OP-B Current Condition Start: 12/27/24 17:08 Freq: Status: Active Protocol: Document 01/14/25 10:54 [facility] (Rec: 01/14/25 11:31 [facility] [id number]) Current Condition History of Current Condition Onset Date Jul worsenening Current Complaints R LB and B quad and groin History of Current Pt reports back pain happens at night in LB and cramps Condition and if turns over. Pulled back in Jul but doesn't remember what she was doing. kicked off shoe in fitting room about 1 month after and irritated her leg. has changed shoes but that didn't help. Pt has 2 spinal fusion surgeries from the L3-5. Had double ablation in Jun. Most of the pain in R side back. had xrays of hips without findings about 2-3 years ago. Backand R foot have arthritis. Pain mostly at night when sleeping and rolling. Better than it was when first saw doctor. Feels when reaching to prune. no issues standing extended, or in the kitchen, carrying groceries, no issues w/bending or ADLs, yard work is ok til the end of the day, is careful when lifting things . sitting ext can bother it and extensive housecleaning like bathtubs. Has started some stretching. Walking bothers her legs by 1/2 block and since stretch, she can make it 1 lap. Tries to walk daily, and would typically do 30-45 min. Takes her a long time to get just the block. R lat approach B hips (R 2015, L 2007). C section x2, hysterecotmy, bladder lift, hernia repair, colon resection . Treatment Goals Patient/Caregiver be able roll in bed, be able to go for full walks(1-1.5 Goals ), be able to stand from chair comfortably. PT-OP-C Subjective Start: 12/27/24 17:08 Freq: Status: Active Protocol: Document 01/22/25 11:33 SP (Rec: 01/22/25 11:35 SP [id number]) OP-PT Subjective Patient Comments Patient Comments Pt reports compliant with HEP, using CP for support with good results. PT-OP-D Balance Start: 12/27/24 17:08 Freq: Status: Active Protocol: Document 01/14/25 10:54 [facility] (Rec: 01/14/25 11:31 [facility] [id number]) Balance Tests Single Limb Standing Single Limb- Right 8 sec Single Limb- Left 8 sec PT-OP-G Mobility & Gait Start: 12/27/24 17:08 Freq: Status: Active Protocol: Document 01/14/25 10:54 [facility] (Rec: 01/14/25 11:31 [facility] [id number]) OP Gait Assessment Comments Gait Comments R pelvic shear, dec R stance time, occ dec foot clearance LLE, lat leaning, dec push off B PT-OP-J Posture/Palpation/Skin Start: 12/27/24 17:08 Freq: Status: Active Protocol: Document 01/14/25 10:54 [facility] (Rec: 01/14/25 11:31 [facility] [id number]) Posture Evaluation Lukas Postural Classification System Lukas Postural Posterior/Anterior Classifications Lumbar Protective 0 Mechanism Left AP Lumbar Protective 1 Mechanism Right AP Lumbar Protective 1 Mechanism Left PA Lumbar Protective 0 Mechanism Right PA Comments Posture Comments R pelvic shear, R iliac crest higher, equal greater troch, inc kyphosis and fwd head, R IR >L PT-OP-K Range of Motion Start: 12/27/24 17:08 Freq: Status: Active Protocol: Document 01/14/25 10:54 [facility] (Rec: 01/14/25 11:31 [facility] [id number]) Lumbar Spine Range of Motion Lumbar Spine Active Percentage Flexion 40 Extension 25 Rotation Left 25 Rotation Right 25 Lateral Flexion Left 25 Lateral Flexion 25 Right Comments mid thigh flex w/pelvis blocked, to ground w/o; pain L back w/ext, pulls B ext, pain ipsilat w/SB PT-OP-L Special Tests Start: 12/27/24 17:08 Freq: Status: Active Protocol: Document 01/14/25 10:54 [facility] (Rec: 01/14/25 11:31 [facility] [id number]) Special Tests Lumbar Spine Special Tests Hai Test Results positive R quad tigthness Slump Test Results neg slump and ext sit SLR Test Results neg B PT-OP-M Strength Start: 12/27/24 17:08 Freq: Status: Active Protocol: Document 01/14/25 10:54 [facility] (Rec: 01/14/25 11:31 [facility] [id number]) Hip Strength Hip Manual Muscle Testing Right Flexion (L2) 3+ Fair+ Extension (S1) 3+ Fair+ External Rotation 3 Fair Internal Rotation 5 Normal Comments pain abd Left Flexion (L2) 3 Fair Abduction 3+ Fair+ External Rotation 3 Fair Internal Rotation 4 Good Comments pain flex and IR and ER Knee Strength Knee Manual Muscle Testing Right Flexion (S2) 5 Normal Extension (L3) 5 Normal Left Flexion (S2) 5 Normal Extension (L3) 5 Normal Ankle/Foot Strength Ankle and Foot Manual Muscle Testing B Dorsiflexion (L4) 5 Normal Plantarflexion (S1) 5 Normal Comments tested seated PT-OP-Q Treatments Start: 12/27/24 17:08 Freq: Status: Active Protocol: Document 01/22/25 11:33 SP (Rec: 01/22/25 11:35 SP [id number]) Therapeutic Exercises Supine Exercises Piriformis Stretch Supine Exercise Name Reviewed: states given in past tx Side left Comments causes pain in L hip L ankle over R knee- DC at this time. TA KFO Supine Exercise Name added to HEp with HO Side bilateral Resistance AROM indivdually Reps/Minutes 10 each side Comments cued very slow pacing, level pelvis with TA support no pelvic rocking- imp isometric Supine Exercise Name SL Side bilateral Resistance (LE 90/90) Equipment Used press into hand Reps/Minutes 30 sec Comments improved DF, cued TA slow eccentric LE lower to table bridge Supine Exercise Name pelvic tilt to bridge Reps/Minutes 10, 5sec x3 Comments cued pelvic roll core fac engagement pelvic tilt Reps/Minutes 8 reps Comments pre bridge AROM Sitting Exercises Clamshell band Sitting Exercise added to HEp with HO Name Side bilateral Resistance TB #2 teal above knees Reps/Minutes 60 sec hold then 15 reps Comments good hip abd tiring Standing Exercises ext Standing Exercise bent over hip hinge to counter Name Side bilateral Resistance lvl 2 at lower leg Reps/Minutes 10 Comments cues tall posture, TA draw in and ecc control return abd Standing Exercise 1 side today Name Side bilateral Resistance lvl 2 teal at lower leg Reps/Minutes 10 each side today vs alternating Comments cues tall posture, TA draw in and ecc control return Therapeutic Activity Therapeutic Activity Log Roll and Sleep positioning use pillows Name Log roll, performance use pillows for hip and postural alignment - HO Reps/Minutes 8 min Comments Education on use of TA during bridge and log roll hips/ shoulders together with UE support trunk righting supine>SL>sit. Continued education with use pillows between BLEs behind back and under head (under UE if needed) support hip and spinal alignment comfort sleeping in SL, under thighs in supine. Manual Therapy Treatment Consent Patient gave verbal Yes consent for manual treatment Soft Tissue Mobilization hip Body Location L Mobilization Type Rolling Intensity/Depth Moderate Body Position R Sidelying Comments LS ES & QL, Glut max and piriformis- very light gentle pressure broad PT-OP-R Modalities Start: 12/27/24 17:08 Freq: Status: Active Protocol: Document 01/17/25 10:23 [facility] (Rec: 01/17/25 11:36 [facility] [id number]) Hot Pack/Cold Pack Treatment Cold Pack Location lumbar Patient Position Hooklying PT-OP-T Assessment and Plan Start: 12/27/24 17:08 Freq: Status: Active Protocol: Document 01/22/25 11:33 SP (Rec: 01/22/25 11:35 SP [id number]) Physical Therapy Assessment Goals balance Short Term Goal (STG Pt will be able to do SLS at least 10 sec B ) STG Duration 02/14 Solar System Installer Goal (LTG) Pt will be able to do SLS at least 15 sec B to show improved stability and balance activities Short Term Goal (STG Pt will be able to roll in bed and do sit to stand from ) chair w/o inc pain in back, hips or legs. STG Duration 02/18 Halfway Goal (LTG) Pt will be able to resume full length walks (~1 mile) and bridging in bed w/o inc pain in back, hips or legs . LTG Duration 03/25 strength Short Term Goal (STG Pt will be indep w/HEP ) STG Duration 02/14 Solar System Installer Goal (LTG) pt will score at least 3/5 on LPM all planes and at least 4+/5 on all BLE MMT to show improved stability in order to be able to do ADLs w/o inc pain. LTG Duration 03/25 Assessment Summary Assessment Pt pelvic alignment seemed even/level arrival. She expressed good feedback to manual with adjustment in pressure given. Discussed Hold doing piriformis stretch if giving her pain, provided modified hooklying knee fall out SLOW AROM pacing with level pelvis cues and review of PPT with gentle bridge lift including TA draw in awareness improved decreased hip and low back discomfort. Time taken for alignment sleeping use pillow propping and TA fac during log roll for back comfort bed mobility. Initiated seated hip strengthening resisted clamshells with good feedback response support comfort sitting watching tv experiences. Good feedback reported end tx. Provided HOs for added activities today. Physical Therapy Plan Frequency and Duration Frequency of 2x/Week Treatment Duration of 10 treatment (weeks) Plan of Care Start 01/14/25 Date Plan of Care End 03/25/25 Date Therapeutic Interventions Therapeutic Balance Training,Gait Training,Home Exercise Program, Interventions Joint Mobilizations,Patient/Caregiver Education,Self- Care/Home Management,Soft Tissue Mobilization,Taping, Therapeutic Activities,Therapeutic Exercises Modalities Cold Pack/Ice Massage,Electric Stimulation,Hot Packs, Infrared Therapy,Ultrasound Next Visit Focus/Plan Next Note Type Treatment Note Next Visit Plan Review HEP POC: manual to hips and innominate, balance exercises, core strengthening, hip strength
--- NOTE | 2025-01-24 11:34 | PT.OTN ---
Current Diagnoses Dorsalgia, unspecified (01/24/25) Unspecified injury of lower back, initial encounter (01/24/25) Physical Therapy Treatment Note PT-OP-A Visit Information Start: 12/27/24 17:08 Freq: Status: Active Protocol: Document 01/24/25 10:47 [facility] (Rec: 01/24/25 11:34 [facility] [id number]) Out-Patient Physical Therapy Visit Information Visit Information Visit Type Treatment Note Visit Start Time 10:50 Visit Stop Time 11:30 Visit Number 4 Number of COMMERCIAL REAL ESTATE APPRAISER Visits 0 PT-OP-B Current Condition Start: 12/27/24 17:08 Freq: Status: Active Protocol: Document 01/14/25 10:54 [facility] (Rec: 01/14/25 11:31 [facility] [id number]) Current Condition History of Current Condition Onset Date Jul worsenening Current Complaints R LB and B quad and groin History of Current Pt reports back pain happens at night in LB and cramps Condition and if turns over. Pulled back in Jul but doesn't remember what she was doing. kicked off shoe in fitting room about 1 month after and irritated her leg. has changed shoes but that didn't help. Pt has 2 spinal fusion surgeries from the L3-5. Had double ablation in Jun. Most of the pain in R side back. had xrays of hips without findings about 2-3 years ago. Backand R foot have arthritis. Pain mostly at night when sleeping and rolling. Better than it was when first saw doctor. Feels when reaching to prune. no issues standing extended, or in the kitchen, carrying groceries, no issues w/bending or ADLs, yard work is ok til the end of the day, is careful when lifting things . sitting ext can bother it and extensive housecleaning like bathtubs. Has started some stretching. Walking bothers her legs by 1/2 block and since stretch, she can make it 1 lap. Tries to walk daily, and would typically do 30-45 min. Takes her a long time to get just the block. R lat approach B hips (R 2015, L 2007). C section x2, hysterecotmy, bladder lift, hernia repair, colon resection . Treatment Goals Patient/Caregiver be able roll in bed, be able to go for full walks(1-1.5 Goals ), be able to stand from chair comfortably. PT-OP-C Subjective Start: 12/27/24 17:08 Freq: Status: Active Protocol: Document 01/24/25 10:47 [facility] (Rec: 01/24/25 11:[id number]-PT Subjective Patient Comments Patient Comments Pt reports already did HEP and 5k steps. soreness ant legs PT-OP-D Balance Start: 12/27/24 17:08 Freq: Status: Active Protocol: Document 01/14/25 10:54 [facility] (Rec: 01/14/25 11:31 [id number] Balance Tests Single Limb Standing Single Limb- Right 8 sec Single Limb- Left 8 sec PT-OP-G Mobility & Gait Start: 12/27/24 17:08 Freq: Status: Active Protocol: Document 01/14/25 10:54 [facility] (Rec: 01/14/25 11:31 [id number] OP Gait Assessment Comments Gait Comments R pelvic shear, dec R stance time, occ dec foot clearance LLE, lat leaning, dec push off B PT-OP-J Posture/Palpation/Skin Start: 12/27/24 17:08 Freq: Status: Active Protocol: Document 01/14/25 10:54 [facility] (Rec: 01/14/25 11:31 [id number] Posture Evaluation [facility] Postural Classification System Lukas Postural Posterior/Anterior Classifications Lumbar Protective 0 Mechanism Left AP Lumbar Protective 1 Mechanism Right AP Lumbar Protective 1 Mechanism Left PA Lumbar Protective 0 Mechanism Right PA Comments Posture Comments R pelvic shear, R iliac crest higher, equal greater troch, inc kyphosis and fwd head, R IR >L PT-OP-K Range of Motion Start: 12/27/24 17:08 Freq: Status: Active Protocol: Document 01/14/25 10:54 [facility] (Rec: 01/14/25 11:31 [facility] [id number]) Lumbar Spine Range of Motion Lumbar Spine Active Percentage Flexion 40 Extension 25 Rotation Left 25 Rotation Right 25 Lateral Flexion Left 25 Lateral Flexion 25 Right Comments mid thigh flex w/pelvis blocked, to ground w/o; pain L back w/ext, pulls B ext, pain ipsilat w/SB PT-OP-L Special Tests Start: 12/27/24 17:08 Freq: Status: Active Protocol: Document 01/14/25 10:54 [facility] (Rec: 01/14/25 11:31 [facility] [id number]) Special Tests Lumbar Spine Special Tests Hai Test Results positive R quad tigthness Slump Test Results neg slump and ext sit SLR Test Results neg B PT-OP-M Strength Start: 12/27/24 17:08 Freq: Status: Active Protocol: Document 01/14/25 10:54 [facility] (Rec: 01/14/25 11:31 [facility] [id number]) Hip Strength Hip Manual Muscle Testing Right Flexion (L2) 3+ Fair+ Extension (S1) 3+ Fair+ External Rotation 3 Fair Internal Rotation 5 Normal Comments pain abd Left Flexion (L2) 3 Fair Abduction 3+ Fair+ External Rotation 3 Fair Internal Rotation 4 Good Comments pain flex and IR and ER Knee Strength Knee Manual Muscle Testing Right Flexion (S2) 5 Normal Extension (L3) 5 Normal Left Flexion (S2) 5 Normal Extension (L3) 5 Normal Ankle/Foot Strength Ankle and Foot Manual Muscle Testing B Dorsiflexion (L4) 5 Normal Plantarflexion (S1) 5 Normal Comments tested seated PT-OP-Q Treatments Start: 12/27/24 17:08 Freq: Status: Active Protocol: Document 01/24/25 10:47 [facility] (Rec: 01/24/25 11:34 [facility] [id number]) Therapeutic Exercises Supine Exercises TA KFO Supine Exercise Name review Side bilateral Resistance L3 individually Reps/Minutes 10 each side Comments cued very slow pacing, level pelvis with TA support no pelvic rocking- imp isometric Supine Exercise Name SL Side bilateral Resistance (LE 90/90) Equipment Used press into one hand Reps/Minutes 30 sec Comments cues DF bridge Supine Exercise Name pelvic tilt to bridge Reps/Minutes 5 sec x10 Comments cues segmental lift/lower Sitting Exercises Clamshell band Sitting Exercise added to HEp with HO Name Side bilateral Resistance TB #3 teal above knees Reps/Minutes 60 sec hold then 15 reps Comments good hip abd tiring Standing Exercises squat Standing Exercise mini at counter Name Side bilateral Reps/Minutes 12 Comments cues comfortable range, butt back, feet hip width ext Standing Exercise bent over hip hinge to counter Name Side bilateral Resistance lvl 1 Reps/Minutes 6 Comments cues neutral spine abd Side bilateral Resistance lvl 1 Reps/Minutes 6 Comments cues tall posture, TA draw in and ecc control return Manual Therapy Treatment Consent Patient gave verbal Yes consent for manual treatment Soft Tissue Mobilization LE Body Location B lat quad/ITB Mobilization Type Rolling Intensity/Depth Moderate Body Position Hooklying Joint Mobilizations innominate Comments flex L w/towel block hip Comments B IR free the ball c/r; B inf glide c/r PT-OP-R Modalities Start: 12/27/24 17:08 Freq: Status: Active Protocol: Document 01/17/25 10:23 [facility] (Rec: 01/17/25 11:36 [facility] [id number]) Hot Pack/Cold Pack Treatment Cold Pack Location lumbar Patient Position Hooklying PT-OP-T Assessment and Plan Start: 12/27/24 17:08 Freq: Status: Active Protocol: Document 01/24/25 10:47 [facility] (Rec: 01/24/25 11:34 [facility] [id number]) Physical Therapy Assessment Goals balance Short Term Goal (STG Pt will be able to do SLS at least 10 sec B ) STG Duration 02/14 Weight Loss Sales Consultant Goal (LTG) Pt will be able to do SLS at least 15 sec B to show improved stability and balance activities Short Term Goal (STG Pt will be able to roll in bed and do sit to stand from ) chair w/o inc pain in back, hips or legs. STG Duration 02/18 Detention Goal (LTG) Pt will be able to resume full length walks (~1 mile) and bridging in bed w/o inc pain in back, hips or legs . LTG Duration 03/25 strength Short Term Goal (STG Pt will be indep w/HEP ) STG Duration 02/14 Detention Goal (LTG) pt will score at least 3/5 on LPM all planes and at least 4+/5 on all BLE MMT to show improved stability in order to be able to do ADLs w/o inc pain. LTG Duration 03/25 Assessment Summary Assessment Pt did well with exercises with minimal cueing. She had improved IR and flex in B hips after manual. She struggled w/block at sacrum so limited ability to do innominate flex Physical Therapy Plan Frequency and Duration Frequency of 2x/Week Treatment Duration of 10 treatment (weeks) Plan of Care Start 01/14/25 Date Plan of Care End 03/25/25 Date Next Visit Focus/Plan Next Note Type Treatment Note Next Visit Plan Review/advance HEP, manual to hips and innominate, balance exercises, core strengthening, hip strength
--- NOTE | 2025-01-28 13:47 | PT.OTN ---
Current Diagnoses Dorsalgia, unspecified (01/28/25) Unspecified injury of lower back, initial encounter (01/28/25) Physical Therapy Treatment Note PT-OP-A Visit Information Start: 12/27/24 17:08 Freq: Status: Active Protocol: Document 01/28/25 13:05 [facility] (Rec: 01/28/25 13:47 [facility] [id number]) Out-Patient Physical Therapy Visit Information Visit Information Visit Type Treatment Note Visit Start Time 13:05 Visit Stop Time 13:45 Visit Number 5 Number of MANAGER BOOK Visits 0 PT-OP-B Current Condition Start: 12/27/24 17:08 Freq: Status: Active Protocol: Document 01/14/25 10:54 [facility] (Rec: 01/14/25 11:31 [facility] [id number]) Current Condition History of Current Condition Onset Date Jul worsenening Current Complaints R LB and B quad and groin History of Current Pt reports back pain happens at night in LB and cramps Condition and if turns over. Pulled back in Jul but doesn't remember what she was doing. kicked off shoe in fitting room about 1 month after and irritated her leg. has changed shoes but that didn't help. Pt has 2 spinal fusion surgeries from the L3-5. Had double ablation in Jun. Most of the pain in R side back. had xrays of hips without findings about 2-3 years ago. Backand R foot have arthritis. Pain mostly at night when sleeping and rolling. Better than it was when first saw doctor. Feels when reaching to prune. no issues standing extended, or in the kitchen, carrying groceries, no issues w/bending or ADLs, yard work is ok til the end of the day, is careful when lifting things . sitting ext can bother it and extensive housecleaning like bathtubs. Has started some stretching. Walking bothers her legs by 1/2 block and since stretch, she can make it 1 lap. Tries to walk daily, and would typically do 30-45 min. Takes her a long time to get just the block. R lat approach B hips (R 2015, L 2007). C section x2, hysterecotmy, bladder lift, hernia repair, colon resection . Treatment Goals Patient/Caregiver be able roll in bed, be able to go for full walks(1-1.5 Goals ), be able to stand from chair comfortably. PT-OP-C Subjective Start: 12/27/24 17:08 Freq: Status: Active Protocol: Document 01/28/25 13:05 [facility] (Rec: 01/28/25 13:47 [id number] OP-PT Subjective Patient Comments Patient Comments [place] a little soreness in back after a walk and doing the exercises. Got 10k yesterday, 14k sat, and 10k a few other days. legs are doing better. sitting in recliner gets some sciatic pain RLe Patient Reported Improving Progress PT-OP-D Balance Start: 12/27/24 17:08 Freq: Status: Active Protocol: Document 01/14/25 10:54 [facility] (Rec: 01/14/25 11:31 [id number][facility] Balance Tests Single Limb Standing Single Limb- Right 8 sec Single Limb- Left 8 sec PT-OP-G Mobility & Gait Start: 12/27/24 17:08 Freq: Status: Active Protocol: Document 01/14/25 10:54 [facility] (Rec: 01/14/25 11:31 [id number][facility] OP Gait Assessment Comments Gait Comments R pelvic shear, dec R stance time, occ dec foot clearance LLE, lat leaning, dec push off B PT-OP-J Posture/Palpation/Skin Start: 12/27/24 17:08 Freq: Status: Active Protocol: Document 01/14/25 10:54 [facility] (Rec: 01/14/25 11:31 [id number] Posture Evaluation Lukas Postural Classification System Lukas Postural Posterior/Anterior Classifications Lumbar Protective 0 Mechanism Left AP Lumbar Protective 1 Mechanism Right AP Lumbar Protective 1 Mechanism Left PA Lumbar Protective 0 Mechanism Right PA Comments Posture Comments R pelvic shear, R iliac crest higher, equal greater troch, inc kyphosis and fwd head, R IR >L PT-OP-K Range of Motion Start: 12/27/24 17:08 Freq: Status: Active Protocol: Document 01/14/25 10:54 [facility] (Rec: 01/14/25 11:31 [id number]) Lumbar Spine Range of Motion Lumbar Spine Active Percentage Flexion 40 Extension 25 Rotation Left 25 Rotation Right 25 Lateral Flexion Left 25 Lateral Flexion 25 Right Comments mid thigh flex w/pelvis blocked, to ground w/o; pain L back w/ext, pulls B ext, pain ipsilat w/SB PT-OP-L Special Tests Start: 12/27/24 17:08 Freq: Status: Active Protocol: Document 01/14/25 10:54 [facility] (Rec: 01/14/25 11:31 [facility] [id number]) Special Tests Lumbar Spine Special Tests Ahi Test Results positive R quad tigthness Slump Test Results neg slump and ext sit SLR Test Results neg B PT-OP-M Strength Start: 12/27/24 17:08 Freq: Status: Active Protocol: Document 01/14/25 10:54 [facility] (Rec: 01/14/25 11:31 [facility] [id number]) Hip Strength Hip Manual Muscle Testing Right Flexion (L2) 3+ Fair+ Extension (S1) 3+ Fair+ External Rotation 3 Fair Internal Rotation 5 Normal Comments pain abd Left Flexion (L2) 3 Fair Abduction 3+ Fair+ External Rotation 3 Fair Internal Rotation 4 Good Comments pain flex and IR and ER Knee Strength Knee Manual Muscle Testing Right Flexion (S2) 5 Normal Extension (L3) 5 Normal Left Flexion (S2) 5 Normal Extension (L3) 5 Normal Ankle/Foot Strength Ankle and Foot Manual Muscle Testing B Dorsiflexion (L4) 5 Normal Plantarflexion (S1) 5 Normal Comments tested seated PT-OP-Q Treatments Start: 12/27/24 17:08 Freq: Status: Active Protocol: Document 01/28/25 13:05 [facility] (Rec: 01/28/25 13:47 [facility] [id number]) Gym Equipment Shuttle Balance blue clips Details w/head turns Comments Fwd and side: WBOS fwd: NBOS Therapeutic Exercises Supine Exercises TA KFO Supine Exercise Name review Side bilateral Resistance L3 individually Reps/Minutes 10 each side Comments cued very slow pacing, level pelvis with TA support no pelvic rocking- imp isometric Supine Exercise Name SL Side bilateral Resistance (LE 90/90) Equipment Used press into one hand Reps/Minutes 30 sec Comments cues DF bridge Supine Exercise Name pelvic tilt to bridge Side bilateral Resistance L3 at knees Reps/Minutes 5 sec x8 Comments cues segmental lift/lower Standing Exercises squat Standing Exercise mini at counter Name Side bilateral Equipment Used L1 at knees Reps/Minutes 12 Comments cues comfortable range, butt back, feet hip width ext Standing Exercise bent over hip hinge to counter Name Side bilateral Resistance lvl 1 Reps/Minutes 10 Comments cues neutral spine abd Side bilateral Resistance lvl 1 Reps/Minutes 10 Comments cues tall posture, TA draw in and ecc control return Manual Therapy Treatment Consent Patient gave verbal Yes consent for manual treatment Soft Tissue Mobilization hip Body Location L HS w/flex Mobilization Type Rolling LB Body Location ES B Body Position Sidelying Comments cupping and manual w/post dep Joint Mobilizations hip Joint L inf c/r PT-OP-R Modalities Start: 12/27/24 17:08 Freq: Status: Active Protocol: Document 01/17/25 10:23 [facility] (Rec: 01/17/25 11:36 [facility] [id number]) Hot Pack/Cold Pack Treatment Cold Pack Location lumbar Patient Position Hooklying PT-OP-T Assessment and Plan Start: 12/27/24 17:08 Freq: Status: Active Protocol: Document 01/28/25 13:05 [facility] (Rec: 01/28/25 13:47 [facility] [id number]) Physical Therapy Assessment Goals balance Short Term Goal (STG Pt will be able to do SLS at least 10 sec B ) STG Duration 02/14 Tugboat Engineer Goal (LTG) Pt will be able to do SLS at least 15 sec B to show improved stability and balance activities Short Term Goal (STG Pt will be able to roll in bed and do sit to stand from ) chair w/o inc pain in back, hips or legs. STG Duration 02/18 Custodial Goal (LTG) Pt will be able to resume full length walks (~1 mile) and bridging in bed w/o inc pain in back, hips or legs . LTG Duration 03/25 strength Short Term Goal (STG Pt will be indep w/HEP ) STG Duration 02/14 Tugboat Engineer Goal (LTG) pt will score at least 3/5 on LPM all planes and at least 4+/5 on all BLE MMT to show improved stability in order to be able to do ADLs w/o inc pain. LTG Duration 03/25 Assessment Summary Assessment Pt had less feeling of tightness in back after manual especially cupping. She did well with exercises but needed some cues for posture. Physical Therapy Plan Frequency and Duration Frequency of 2x/Week Treatment Duration of 10 treatment (weeks) Plan of Care Start 01/14/25 Date Plan of Care End 03/25/25 Date Next Visit Focus/Plan Next Note Type Treatment Note Next Visit Plan Review/advance HEP, manual to hips and innominate, balance exercises, core strengthening, hip strength
--- NOTE | 2025-01-31 15:22 | PT.OTN ---
Current Diagnoses Dorsalgia, unspecified (01/31/25) Unspecified injury of lower back, initial encounter (01/31/25) Physical Therapy Treatment Note PT-OP-A Visit Information Start: 12/27/24 17:08 Freq: Status: Active Protocol: Document 01/31/25 14:37 [facility] (Rec: 01/31/25 15:35 [facility] [id number]) Out-Patient Physical Therapy Visit Information Visit Information Visit Type Treatment Note Visit Start Time 14:37 Visit Stop Time 15:22 Visit Number 6 Number of UNIVERSAL BRANCH CONSULTANT Visits 1 Progress Note Due 02/14/25 PT-OP-B Current Condition Start: 12/27/24 17:08 Freq: Status: Active Protocol: Document 01/14/25 10:54 [facility] (Rec: 01/14/25 11:31 [facility] [id number]) Current Condition History of Current Condition Onset Date Jul worsenening Current Complaints R LB and B quad and groin History of Current Pt reports back pain happens at night in LB and cramps Condition and if turns over. Pulled back in Jul but doesn't remember what she was doing. kicked off shoe in fitting room about 1 month after and irritated her leg. has changed shoes but that didn't help. Pt has 2 spinal fusion surgeries from the L3-5. Had double ablation in Jun. Most of the pain in R side back. had xrays of hips without findings about 2-3 years ago. Backand R foot have arthritis. Pain mostly at night when sleeping and rolling. Better than it was when first saw doctor. Feels when reaching to prune. no issues standing extended, or in the kitchen, carrying groceries, no issues w/bending or ADLs, yard work is ok til the end of the day, is careful when lifting things . sitting ext can bother it and extensive housecleaning like bathtubs. Has started some stretching. Walking bothers her legs by 1/2 block and since stretch, she can make it 1 lap. Tries to walk daily, and would typically do 30-45 min. Takes her a long time to get just the block. R lat approach B hips (R 2015, L 2007). C section x2, hysterecotmy, bladder lift, hernia repair, colon resection . Treatment Goals Patient/Caregiver be able roll in bed, be able to go for full walks(1-1.5 Goals ), be able to stand from chair comfortably. PT-OP-C Subjective Start: 12/27/24 17:08 Freq: Status: Active Protocol: Document 01/31/25 14:37 SP (Rec: 01/31/25 15:35 [facility] [id number]) OP-PT Subjective Patient Comments Patient Comments Pt reports hip little sore after last tx but did on and not limiting. PT-OP-D Balance Start: 12/27/24 17:08 Freq: Status: Active Protocol: Document 01/14/25 10:54 [facility] (Rec: 01/14/25 11:31 [facility] [id number]) Balance Tests Single Limb Standing Single Limb- Right 8 sec Single Limb- Left 8 sec PT-OP-G Mobility & Gait Start: 12/27/24 17:08 Freq: Status: Active Protocol: Document 01/14/25 10:54 [facility] (Rec: 01/14/25 11:31 [facility] [id number]) OP Gait Assessment Comments Gait Comments R pelvic shear, dec R stance time, occ dec foot clearance LLE, lat leaning, dec push off B PT-OP-J Posture/Palpation/Skin Start: 12/27/24 17:08 Freq: Status: Active Protocol: Document 01/14/25 10:54 [facility] (Rec: 01/14/25 11:31 [facility] [id number]) Posture Evaluation [facility] Postural Classification System Lukas Postural Posterior/Anterior Classifications Lumbar Protective 0 Mechanism Left AP Lumbar Protective 1 Mechanism Right AP Lumbar Protective 1 Mechanism Left PA Lumbar Protective 0 Mechanism Right PA Comments Posture Comments R pelvic shear, R iliac crest higher, equal greater troch, inc kyphosis and fwd head, R IR >L PT-OP-K Range of Motion Start: 12/27/24 17:08 Freq: Status: Active Protocol: Document 01/14/25 10:54 [facility] (Rec: 01/14/25 11:31 [facility] [id number]) Lumbar Spine Range of Motion Lumbar Spine Active Percentage Flexion 40 Extension 25 Rotation Left 25 Rotation Right 25 Lateral Flexion Left 25 Lateral Flexion 25 Right Comments mid thigh flex w/pelvis blocked, to ground w/o; pain L back w/ext, pulls B ext, pain ipsilat w/SB PT-OP-L Special Tests Start: 12/27/24 17:08 Freq: Status: Active Protocol: Document 01/14/25 10:54 [facility] (Rec: 01/14/25 11:31 [facility] [id number]) Special Tests Lumbar Spine Special Tests Hai Test Results positive R quad tigthness Slump Test Results neg slump and ext sit SLR Test Results neg B PT-OP-M Strength Start: 12/27/24 17:08 Freq: Status: Active Protocol: Document 01/14/25 10:54 [facility] (Rec: 01/14/25 11:31 [facility] [id number]) Hip Strength Hip Manual Muscle Testing Right Flexion (L2) 3+ Fair+ Extension (S1) 3+ Fair+ External Rotation 3 Fair Internal Rotation 5 Normal Comments pain abd Left Flexion (L2) 3 Fair Abduction 3+ Fair+ External Rotation 3 Fair Internal Rotation 4 Good Comments pain flex and IR and ER Knee Strength Knee Manual Muscle Testing Right Flexion (S2) 5 Normal Extension (L3) 5 Normal Left Flexion (S2) 5 Normal Extension (L3) 5 Normal Ankle/Foot Strength Ankle and Foot Manual Muscle Testing B Dorsiflexion (L4) 5 Normal Plantarflexion (S1) 5 Normal Comments tested seated PT-OP-Q Treatments Start: 12/27/24 17:08 Freq: Status: Active Protocol: Document 01/31/25 14:37 SP (Rec: 01/31/25 15:35 SP [id number]) Gym Equipment Shuttle Recovery Bilateral Squat Details TB #2 around thighs with cues Resistance 50 (2 navy bands) Reps/Time 15reps Therapeutic Exercises Standing Exercises Resisted stepping Standing Exercise f/b/l-added to HEP (declined HO) Name Side bilateral Resistance TB #2 teal ( at thighs) Reps/Minutes 15 ft x2 laps each direction Comments cued little bigger stride than normal step- good hip abd tiring/no pain squat Standing Exercise mini at counter Name Side bilateral Resistance L1>2 teal at knees Equipment Used contact counter Reps/Minutes 12 Comments cues comfortable range, butt back, feet hip width ext Standing Exercise bent over hip hinge to counter Name Side bilateral Resistance lvl 1>2 teal (at ankles) Reps/Minutes 10x2 Comments cues neutral spine abd Side bilateral Resistance lvl 1>2 teal (at shins) Reps/Minutes 10x2 Comments cues tall posture, TA draw in and ecc control return Manual Therapy Treatment Soft Tissue Mobilization hip Body Location L B hip ERs and prox HS Mobilization Type Rolling,Sustained Pressure,Other Body Position Prone Comments STMs and PROM hip IR/ER Joint Mobilizations hip Comments B IR free the ball Neuro Re-Education Treatment Balance Activities SLS Equipment front mirror near counter for contact Comments RLE 20s LLE 14s Tandem Equipment front mirror near counter for contact Comments R ft fwd 60 sec L ft fwd 22 sec before contanct counter PT-OP-R Modalities Start: 12/27/24 17:08 Freq: Status: Active Protocol: Document 01/17/25 10:23 [facility] (Rec: 01/17/25 11:36 [facility] [id number]) Hot Pack/Cold Pack Treatment Cold Pack Location lumbar Patient Position Hooklying PT-OP-T Assessment and Plan Start: 12/27/24 17:08 Freq: Status: Active Protocol: Document 01/31/25 14:37 SP (Rec: 01/31/25 15:35 SP [id number]) Physical Therapy Assessment Goals balance Short Term Goal (STG Pt will be able to do SLS at least 10 sec B ) 01/31/25: MET Goal: R 20s, L 14s STG Duration 02/14 GOAL MET 01/31/25 Consultant Dietitian Goal (LTG) Pt will be able to do SLS at least 15 sec B to show improved stability and balance 01/31/25: progressing R 20s, L 14s LTG Duration progressing 01/31/25 activities Short Term Goal (STG Pt will be able to roll in bed and do sit to stand from ) chair w/o inc pain in back, hips or legs. 01/31/25: rolling in bed no increased pain but improve 40 % better (compared to months before PT and with muscle relaxers), coming to stand initially creaky but not painful but STS as an ex 710 in knees performing 10 reps but is modifying range for tolerance. STG Duration 02/18 progressing 01/31/25 Fpc Goal (LTG) Pt will be able to resume full length walks (~1 mile) and bridging in bed w/o inc pain in back, hips or legs . 01/31/25: no pain with bridges at 45/100 soft mattress. Walking about 10,000 steps a day and 5000 steps in 1 distance walking this am 4/10 with pain in hips better than 7/10 when started. LTG Duration 03/25 progess 01/31/25 strength Short Term Goal (STG Pt will be indep w/HEP ) STG Duration 02/14 Consultant Dietitian Goal (LTG) pt will score at least 3/5 on LPM all planes and at least 4+/5 on all BLE MMT to show improved stability in order to be able to do ADLs w/o inc pain. LTG Duration 03/25 Assessment Summary Assessment Pt improved less muscle soreness post manual end tx. Pt only requires occasional cues for posture during standing ther ex to allow improved spinal alignment and decreased compensations, and decreased stride to support knee alignment during resisted stepping today. She is noticing decreased pain overall and increased strength. She met STG SLS increased time which noticed endurance gait further walks and no pain movement in bed anymore with proper log roll and TA support. Physical Therapy Plan Frequency and Duration Frequency of 2x/Week Treatment Duration of 10 treatment (weeks) Plan of Care Start 01/14/25 Date Plan of Care End 03/25/25 Date Therapeutic Interventions Therapeutic Balance Training,Gait Training,Home Exercise Program, Interventions Joint Mobilizations,Patient/Caregiver Education,Self- Care/Home Management,Soft Tissue Mobilization,Taping, Therapeutic Activities,Therapeutic Exercises Modalities Cold Pack/Ice Massage,Electric Stimulation,Hot Packs, Infrared Therapy,Ultrasound Next Visit Focus/Plan Next Note Type Treatment Note Next Visit Plan Review/advance HEP, manual to hips and innominate, balance exercises, core strengthening, hip strength ( functional activities next tx).
--- NOTE | 2025-02-04 16:32 | PT.OTN ---
Current Diagnoses Dorsalgia, unspecified (02/04/25) Unspecified injury of lower back, initial encounter (02/04/25) Physical Therapy Treatment Note PT OP: Lower Back/Lower Extremity Start: 01/31/25 15:35 Freq: Status: Active Protocol: Document 02/04/25 13:51 [facility] (Rec: 02/04/25 14:38 [facility] [id number]) Out-Patient Physical Therapy Visit Information Visit Information Visit Type Treatment Note Visit Start Time 13:51 Visit Stop Time 14:30 Visit Number 7 Number of IN FILE OPERATOR Visits 0 Progress Note Due 02/14/25 OP-PT Subjective Patient Comments Patient Comments pt notes she has pain around R ant hip/upper thigh to lat hip but had done 6k miles. Gait Training Gait Activity wt acceptance Comments manual facilitation seated w/traction to improve glute activation B gait at wall Comments 5 sec x3-max cues knee ext (tried PF but painful R foot ) sport cord Device Used red sport cord Distance/Duration 10 reps ea Treatment Focus glute activation resisted gait Distance/Duration 2x50ft Treatment Focus push off Comments w/dowel vs PT Manual Therapy Treatment Consent Patient gave verbal Yes consent for manual treatment Soft Tissue Mobilization hip Body Location B TFL, iliacus Mobilization Type Rolling,Sustained Pressure Comments gentle hip IR/ER Physical Therapy Assessment Goals balance Short Term Goal (STG Pt will be able to do SLS at least 10 sec B ) 01/31/25: MET Goal: R 20s, L 14s STG Duration 02/14 GOAL MET 01/31/25 Cardiac Exercise Physiologist Goal (LTG) Pt will be able to do SLS at least 15 sec B to show improved stability and balance 01/31/25: progressing R 20s, L 14s LTG Duration progressing 01/31/25 activities Short Term Goal (STG Pt will be able to roll in bed and do sit to stand from ) chair w/o inc pain in back, hips or legs. 01/31/25: rolling in bed no increased pain but improve 40 % better (compared to months before PT and with muscle relaxers), coming to stand initially creaky but not painful but STS as an ex 7/10 in knees performing 10 reps but is modifying range for tolerance. STG Duration 02/18 progressing 01/31/25 Cardiac Exercise Physiologist Goal (LTG) Pt will be able to resume full length walks (~1 mile) and bridging in bed w/o inc pain in back, hips or legs . 01/31/25: no pain with bridges at 45/100 soft mattress. Walking about 10,000 steps a day and 5000 steps in 1 distance walking this am 10 with pain in hips better than 10 when started. LTG Duration 03/25 progess 01/31/25 strength Short Term Goal (STG Pt will be indep w/HEP ) STG Duration 02/14 Cardiac Exercise Physiologist Goal (LTG) pt will score at least 3/5 on LPM all planes and at least 4+/5 on all BLE MMT to show improved stability in order to be able to do ADLs w/o inc pain. LTG Duration 03/25 Assessment Summary Assessment Pt did well with gait activities and had improved push off w/re training. has significant tightness R>L ant hip mm. Physical Therapy Plan Frequency and Duration Frequency of 2x/Week Treatment Duration of 10 treatment (weeks) Plan of Care Start 01/14/25 Date Plan of Care End 03/25/25 Date Next Visit Focus/Plan Next Note Type Treatment Note Next Visit Plan Review/advance HEP, manual to hips and innominate, balance exercises, core strengthening, hip strength ( functional activities next tx).
--- NOTE | 2025-02-07 14:31 | PT.OTN ---
Current Diagnoses Dorsalgia, unspecified (02/07/25) Unspecified injury of lower back, initial encounter (02/07/25) Physical Therapy Treatment Note PT OP: Lower Back/Lower Extremity Start: 01/31/25 15:35 Freq: Status: Active Protocol: Document 02/07/25 13:51 SP (Rec: 02/07/25 14:31 SP [id number]) Out-Patient Physical Therapy Visit Information Visit Information Visit Type Treatment Note Visit Start Time 13:51 Visit Stop Time 14:31 Visit Number 8 Number of STILL TENDER Visits 1 Progress Note Due 02/14/25 OP-PT Subjective Patient Comments Patient Comments Pt reports trialed pillows between knees sleeping and made pain worse in R leg to took them out. She is doing ok arrival. She is compliant with HEP and deleted 1 crossed off (piriformis stretch, causes pain). PT Sola gave her PT Thad's card to go see for added assistance, his specialty. Pt stated got referral for dizziness when laying down/rolling over and at times coming to standing to see vestibular PT, Thad. She states when gets dizzy rolling over take about 20-60 sec to normalize. Therapeutic Exercises Supine Exercises SL bridge Supine Exercise Name trialed in PT only (not for HEP yet 02/07/25) Side bilateral Resistance AROM Reps/Minutes 5 reps each LE Comments cued TA, level pelvis, slow lift/lower, breath- good form, leg tiring bridge Supine Exercise Name pelvic tilt to bridge Side bilateral Resistance L3 at knees Reps/Minutes 5 sec x8 Comments cues segmental lift/lower Standing Exercises Resisted stepping Standing Exercise f/b/l-added to HEP (declined HO) Name Side bilateral Resistance TB #3 chipewwa green ( around thighs) Reps/Minutes 15 ft x2 laps each direction (hallway rail) Comments cued little bigger stride than normal step- good hip abd tiring/no pain Neuro Re-Education Treatment Balance Activities SLS Equipment front mirror near counter for contact Comments RLE 9s LLE 30s Tandem Equipment front mirror near counter for contact Comments R ft fwd 11, 30 sec L ft fwd 30 sec before contanct counter -improved wt shift into front foot. Physical Therapy Assessment Goals balance Short Term Goal (STG Pt will be able to do SLS at least 10 sec B ) 01/31/25: MET Goal: R 20s, L 14s STG Duration 02/14 GOAL MET 01/31/25 Group Home Goal (LTG) Pt will be able to do SLS at least 15 sec B to show improved stability and balance 01/31/25: progressing R 20s, L 14s 02/07/25: progressingR 9 sec, L 30 sec. LTG Duration progressing 814/25 activities Short Term Goal (STG Pt will be able to roll in bed and do sit to stand from ) chair w/o inc pain in back, hips or legs. 01/31/25: rolling in bed no increased pain but improve 40 % better (compared to months before PT and with muscle relaxers), coming to stand initially creaky but not painful but STS as an ex 01/03 in knees performing 10 reps but is modifying range for tolerance. 02/07/25: no pain rolling over no pain, limits her STS due to knee crunching and added pain so does mini squat at counter. STG Duration 02/18 progressing 02/07/25 5Th Grade Teacher Goal (LTG) Pt will be able to resume full length walks (~1 mile) and bridging in bed w/o inc pain in back, hips or legs . 01/31/25: no pain with bridges at 45/100 soft mattress. Walking about 10,000 steps a day and 5000 steps in 1 distance walking this am 410 with pain in hips better than 10 when started. 02/07/25: walked 6, 000 so far and had hip job. LTG Duration 03/25 progess 02/07/25 strength Short Term Goal (STG Pt will be indep w/HEP ) STG Duration 02/14 Group Home Goal (LTG) pt will score at least 3/5 on LPM all planes and at least 4+/5 on all BLE MMT to show improved stability in order to be able to do ADLs w/o inc pain. LTG Duration 03/25 Assessment Summary Assessment Pt good feedback tiring challenge ther ex today. Cues for core and hip abd engagement level pelvis during SL bridge progression today, will hold adding to HEP yet. Continued resisted stepping for carryover hip abd strengthening with good feedback post cues for alignment corrections for stabiltiy stance time with smaller BUSTER. Continued balance activities tandem and SLS cues for postural alignment corrections improving stability, provided HOs for carryover and included cues for carryover home so can support return to activities PLOF. Physical Therapy Plan Frequency and Duration Frequency of 2x/Week Treatment Duration of 10 treatment (weeks) Plan of Care Start 01/14/25 Date Plan of Care End 03/25/25 Date Therapeutic Interventions Therapeutic Balance Training,Gait Training,Home Exercise Program, Interventions Joint Mobilizations,Patient/Caregiver Education,Self- Care/Home Management,Soft Tissue Mobilization,Taping, Therapeutic Activities,Therapeutic Exercises Modalities Cold Pack/Ice Massage,Electric Stimulation,Hot Packs, Infrared Therapy,Ultrasound Next Visit Focus/Plan Next Note Type Treatment Note Next Visit Plan Review/advance HEP, manual to hips and innominate, balance exercises, core strengthening, hip strength ( functional activities next tx).
--- NOTE | 2025-02-11 14:30 | PT.OTN ---
Current Diagnoses Dorsalgia, unspecified (02/11/25) Unspecified injury of lower back, initial encounter (02/11/25) Physical Therapy Treatment Note PT OP: Lower Back/Lower Extremity Start: 01/31/25 15:35 Freq: Status: Active Protocol: Document 02/11/25 13:48 SP (Rec: 02/11/25 15:00 SP [id number]) Out-Patient Physical Therapy Visit Information Visit Information Visit Type Treatment Note Visit Start Time 13:48 Visit Stop Time 14:30 Visit Number 9 Number of CHEMISTRY TECHNOLOGIST Visits 2 Progress Note Due 02/14/25 OP-PT Subjective Patient Comments Patient Comments Pt reports doing well with HEP did 1-2 daily since last tx, not today knowing will be at PT. Therapeutic Exercises Supine Exercises HS Stretch Supine Exercise Name 1. static 2. dynamic ankle pump Side bilateral Equipment Used grasp behind Reps/Minutes 1.30 sec 2. 10 AP Comments cued slow lower leg lift- tighter on R than L SL bridge Supine Exercise Name reviewed- added to HEP Side bilateral Resistance AROM Reps/Minutes 1. 5 reps 1st set pre stretch 2. less momentum after stretch 10 reps each Comments cued TA, level pelvis, slow lift/lower, breath- good form bridge Supine Exercise Name pelvic tilt to bridge Side bilateral Resistance L3 at knees Reps/Minutes 5 sec x10 Comments cues segmental lift/lower Neuro Re-Education Treatment Balance Activities Dynamic Stepping Details fwd head turns, backward stepping, tandem fwd & bwd Surface tile Equipment near wall/rail support Reps/Duration 20 ft x2 laps each Comments Discussed same activities in [place] Foam Details WBOS HTs, NBOS, semitandem Comments cued rhpomboid, TA, full foot [place] stability Self-Care/Home Management Treatment Education Patient Education Body Mechanics,Fall Risk,Home Exercise Program,Posture, Safety Other Education Ed during balance activities for cues for COG over BUSTER. Cues postural awareness during balance activities, encouraged attending Group Matthias class for carryover strength and balance carryover outside PT, pt in agreement would be a great class to take. Discussion of Group [facility] Fall Prevention Program hosted satellite site in [facility] M/W 4-5 pm class and Balance Testing 02/18/25. PRovided HOs and whom to call, Community Relations Dept. Physical Therapy Assessment Goals balance Short Term Goal (STG Pt will be able to do SLS at least 10 sec B ) 01/31/25: MET Goal: R 20s, L 14s STG Duration 02/14 GOAL MET 01/31/25 Detention Goal (LTG) Pt will be able to do SLS at least 15 sec B to show improved stability and balance 01/31/25: progressing R 20s, L 14s 02/07/25: progressingR 9 sec, L 30 sec. LTG Duration progressing 02/07/25 activities Short Term Goal (STG Pt will be able to roll in bed and do sit to stand from ) chair w/o inc pain in back, hips or legs. 01/31/25: rolling in bed no increased pain but improve 40 % better (compared to months before PT and with muscle relaxers), coming to stand initially creaky but not painful but STS as an ex 7/10 in knees performing 10 reps but is modifying range for tolerance. 02/07/25: no pain rolling over no pain, limits her STS due to knee crunching and added pain so does mini squat at counter. STG Duration 02/18 progressing 02/07/25 Detention Goal (LTG) Pt will be able to resume full length walks (~1 mile) and bridging in bed w/o inc pain in back, hips or legs . 01/31/25: no pain with bridges at 45/100 soft mattress. Walking about 10,000 steps a day and 5000 steps in 1 distance walking this am 4/10 with pain in hips better than 7/10 when started. 02/07/25: walked 6, 000 so far and had hip job. LTG Duration 03/25 progess 02/07/25 strength Short Term Goal (STG Pt will be indep w/HEP ) STG Duration 02/14 Boring Machine Operator Vertical Goal (LTG) pt will score at least 3/5 on LPM all planes and at least 4+/5 on all BLE MMT to show improved stability in order to be able to do ADLs w/o inc pain. LTG Duration 03/25 Assessment Summary Assessment Pt improved postural corrections during static and dynamic balance activities after strengthening HEP review, cues as needed for proper form and COG over BUSTER , very little UE support needed wall contact for stability recovery. Encouraged if she finds beneficial attending Group [facility] for addition carryover balance progression compliment with PT and support continuing after PT. Physical Therapy Plan Frequency and Duration Frequency of 2x/Week Treatment Duration of 10 treatment (weeks) Plan of Care Start 01/14/25 Date Plan of Care End 03/25/25 Date Therapeutic Interventions Therapeutic Balance Training,Gait Training,Home Exercise Program, Interventions Joint Mobilizations,Patient/Caregiver Education,Self- Care/Home Management,Soft Tissue Mobilization,Taping, Therapeutic Activities,Therapeutic Exercises Modalities Cold Pack/Ice Massage,Electric Stimulation,Hot Packs, Infrared Therapy,Ultrasound Next Visit Focus/Plan Next Note Type Treatment Note Next Visit Plan Review/advance HEP, manual to hips and innominate, balance exercises, core strengthening, hip strength ( functional activities next tx). Recheck if signed up for Group [place] and continue strengthening per POC.
--- NOTE | 2025-02-13 12:31 | PT.OPPN ---
Current Diagnoses Dorsalgia, unspecified (02/13/25) Unspecified injury of lower back, initial encounter (02/13/25) Physical Therapy Progress Note PT OP: Lower Back/Lower Extremity Start: 01/31/25 15:35 Freq: Status: Active Protocol: Document 02/13/25 11:36 [facility] (Rec: 02/13/25 12:31 [facility] [id number]) Out-Patient Physical Therapy Visit Information Visit Information Visit Type Progress Note Visit Start Time 11:35 Visit Stop Time 12:15 Visit Number 10 Number of METAL COATER Visits 0 Progress Note Due 03/15/25 OP-PT Subjective Patient Comments Patient Comments Pt reports she is wondering if her hip replacements are going bad. R was in 2015, L 2007. pain mostly in the front of the hips and lat hips when sleeping. Posture Evaluation Lukas Postural Classification System Lukas Postural Posterior/Anterior Classifications Lumbar Protective 0 Mechanism Left AP Lumbar Protective 3 Mechanism Right AP Lumbar Protective 2 Mechanism Left PA Lumbar Protective 1 Mechanism Right PA Hip Strength Hip Manual Muscle Testing Right Flexion (L2) 3+ Fair+ Extension (S1) 3+ Fair+ Abduction 4- Good- External Rotation 3+ Fair+ Internal Rotation 5 Normal Comments pain abd B mild Left Flexion (L2) 3+ Fair+ Abduction 4 Good External Rotation 3+ Fair+ Internal Rotation 4+ Good+ Comments pain flex B; IR L Knee Strength Knee Manual Muscle Testing Right Flexion (S2) 5 Normal Extension (L3) 5 Normal Left Flexion (S2) 5 Normal Extension (L3) 5 Normal Gym Equipment Therapeutic Ball seated Exercise Details cues posture and core Ball Size/Color 65 cm Reps/Duration 15 Comments 1. august 26. kicks Therapeutic Exercises Sitting Exercises sit backs Side bilateral Reps/Minutes 2x10 Comments cues posture Standing Exercises step up Side bilateral Equipment Used 6 in Reps/Minutes 10 ea Comments cues control march Side bilateral Reps/Minutes 2x10 Comments cues core and posture Manual Therapy Treatment Consent Patient gave verbal Yes consent for manual treatment Soft Tissue Mobilization hip Body Location B TFL, iliacus Mobilization Type Rolling,Sustained Pressure Comments gentle hip IR/ER and heel slides Physical Therapy Assessment Goals balance Short Term Goal (STG Pt will be able to do SLS at least 10 sec B ) 01/31/25: MET Goal: R 20s, L 14s STG Duration 02/14 GOAL MET 01/31/25 [facility] Goal (LTG) Pt will be able to do SLS at least 15 sec B to show improved stability and balance 01/31/25: progressing R 20s, L 14s 02/07/25: progressingR 9 sec, L 30 sec. LTG Duration progressing 02/07/25 activities Short Term Goal (STG Pt will be able to roll in bed and do sit to stand from ) chair w/o inc pain in back, hips or legs. 01/31/25: rolling in bed no increased pain but improve 40 % better (compared to months before PT and with muscle relaxers), coming to stand initially creaky but not painful but STS as an ex 10 in knees performing 10 reps but is modifying range for tolerance. 02/07/25: no pain rolling over no pain, limits her STS due to knee crunching and added pain so does mini squat at counter. STG Duration achieved 02/13 Assistant Professor Of Music Goal (LTG) Pt will be able to resume full length walks (~1 mile) and bridging in bed w/o inc pain in back, hips or legs . 01/31/25: no pain with bridges at 45/100 soft mattress. Walking about 10,000 steps a day and 5000 steps in 1 distance walking this am 4/10 with pain in hips better than 7/10 when started. 02/07/25: walked 6, 000 so far and had hip job. 02/13-able to bridge w/o pain, hurts if keeps going with walk, normal step count is 10-16k in day, now between 9k-14k but ant hip pain LTG Duration 03/25 progess 02/07/25 strength Short Term Goal (STG Pt will be indep w/HEP ) STG Duration achieved advancing as able [facility] Goal (LTG) pt will score at least 3/5 on LPM all planes and at least 4+/5 on all BLE MMT to show improved stability in order to be able to do ADLs w/o inc pain. 02/13 improving LTG Duration 03/25 Assessment Summary Assessment Pt making good functional progress and has dec back pain but cont to have B and hip pain. She was encouraged to follow up w/her surgeon to check on her past replacements but also does cont to have weakness despite her progress w/PT. She would benefit from cont PT to dec pain and improve strength to improve tolerance to daily activities. Physical Therapy Plan Frequency and Duration Frequency of 2x/Week Treatment Duration of 10 treatment (weeks) Plan of Care Start 01/14/25 Date Plan of Care End 03/25/25 Date Therapeutic Interventions Therapeutic Balance Training,Gait Training,Home Exercise Program, Interventions Joint Mobilizations,Patient/Caregiver Education,Self- Care/Home Management,Soft Tissue Mobilization,Taping, Therapeutic Activities,Therapeutic Exercises Modalities Cold Pack/Ice Massage,Electric Stimulation,Hot Packs, Infrared Therapy,Ultrasound Next Visit Focus/Plan Next Note Type Treatment Note Next Visit Plan cont to advance strength focusing on hip flexors and glutes
--- NOTE | 2025-02-18 13:45 | PT.OTN ---
Current Diagnoses Dorsalgia, unspecified (02/18/25) Unspecified injury of lower back, initial encounter (02/18/25) Physical Therapy Treatment Note PT OP: Lower Back/Lower Extremity Start: 01/31/25 15:35 Freq: Status: Active Protocol: Document 02/18/25 13:03 SP (Rec: 02/18/25 13:48 SP [id number]) Out-Patient Physical Therapy Visit Information Visit Information Visit Type Treatment Note Visit Start Time 13:03 Visit Stop Time 13:45 Visit Number 11 Number of TRAFFIC CONTROL OPERATOR Visits 1 Progress Note Due 03/15/25 OP-PT Subjective Patient Comments Patient Comments Pt reports compliant with HEP but not today. Walking dog and not having as much pain. Gym Equipment Shuttle Recovery Unilateral Squat Details mid range Resistance 37# (1 teal band) Reps/Time 10 Bilateral Squat Details TB #2=3 around thighs with cues Resistance 50 (2 navy bands) Reps/Time 15 reps Shuttle Balance blue clips Details w/head turns Comments WBOS & stride stance 1. bal 2. HTs 3. EC WBOS 30sec, stride stance RLE fwd 6 sec, LLE fwd 12 sec before LOB 4. august 29. kicks- fes, abd unsteady R abd L knee buckled recov though, HS curl like Neuro Re-Education Treatment Balance Activities Uneven STS Surface mesh chair stand on foam Reps/Duration 5 reps Comments arms across chest step taps & step up/back down wt Surface 4# leg wts, foam under feet tap 8 step, foam under feet & top 6 step Reps/Duration 5 reps each side Comments fwd and lateral step up/downs fwd only taps CG/ Min A asneeded, cued slower pacing midline core engagment improved Dynamic Stepping Details head turns : fwd metronome 93 bpm, backward stepping 90bpm Surface tile Equipment near wall/rail support Reps/Duration 50 ft x2 laps each Comments cues for core, feet apart with HTs Physical Therapy Assessment Goals balance Short Term Goal (STG Pt will be able to do SLS at least 10 sec B ) 01/31/25: MET Goal: R 20s, L 14s STG Duration 02/14 GOAL MET 01/31/25 [facility] Goal (LTG) Pt will be able to do SLS at least 15 sec B to show improved stability and balance 01/31/25: progressing R 20s, L 14s 02/07/25: progressingR 9 sec, L 30 sec. LTG Duration progressing 02/07/25 activities Short Term Goal (STG Pt will be able to roll in bed and do sit to stand from ) chair w/o inc pain in back, hips or legs. 01/31/25: rolling in bed no increased pain but improve 40 % better (compared to months before PT and with muscle relaxers), coming to stand initially creaky but not painful but STS as an ex 7/10 in knees performing 10 reps but is modifying range for tolerance. 02/07/25: no pain rolling over no pain, limits her STS due to knee crunching and added pain so does mini squat at counter. STG Duration achieved 02/13 General Engineer Goal (LTG) Pt will be able to resume full length walks (~1 mile) and bridging in bed w/o inc pain in back, hips or legs . 01/31/25: no pain with bridges at 45/100 soft mattress. Walking about 10,000 steps a day and 5000 steps in 1 distance walking this am 4/10 with pain in hips better than 7/10 when started. 02/07/25: walked 6, 000 so far and had hip job. 02/13-able to bridge w/o pain, hurts if keeps going with walk, normal step count is 10-16k in day, now between 9k-14k but ant hip pain LTG Duration 03/25 progess 02/07/25 strength Short Term Goal (STG Pt will be indep w/HEP ) STG Duration achieved advancing as able [facility] Goal (LTG) pt will score at least 3/5 on LPM all planes and at least 4+/5 on all BLE MMT to show improved stability in order to be able to do ADLs w/o inc pain. 02/13 improving LTG Duration 03/25 Assessment Summary Assessment Pt tolerated progression functional strengthening and progression balance activities today. Cues for slower pacing with awareness of increased BUSTER during HTs hallway stepping and COG over BUSTER on shuttle balance to support safety caryover scanning parkinglot in community safety. Physical Therapy Plan Frequency and Duration Frequency of 2x/Week Treatment Duration of 10 treatment (weeks) Plan of Care Start 01/14/25 Date Plan of Care End 03/25/25 Date Therapeutic Interventions Therapeutic Balance Training,Gait Training,Home Exercise Program, Interventions Joint Mobilizations,Patient/Caregiver Education,Self- Care/Home Management,Soft Tissue Mobilization,Taping, Therapeutic Activities,Therapeutic Exercises Modalities Cold Pack/Ice Massage,Electric Stimulation,Hot Packs, Infrared Therapy,Ultrasound Next Visit Focus/Plan Next Note Type Treatment Note Next Visit Plan Next: cont to advance strength focusing on hip flexors and glutes
--- NOTE | 2025-02-20 11:39 | PT.OTN ---
Current Diagnoses Dorsalgia, unspecified (02/20/25) Unspecified injury of lower back, initial encounter (02/20/25) Physical Therapy Treatment Note PT OP: Lower Back/Lower Extremity Start: 01/31/25 15:35 Freq: Status: Active Protocol: Document 02/20/25 10:49 [facility] (Rec: 02/20/25 11:38 [facility] [id number]) Out-Patient Physical Therapy Visit Information Visit Information Visit Type Treatment Note Visit Note pt late Visit Start Time 10:57 Visit Stop Time 11:35 Visit Number 12 Number of FRAME CHANGER Visits 0 Progress Note Due 03/15/25 OP-PT Subjective Patient Comments Patient Comments Pt reports did her regular distance walk yesterday with les pain Gym Equipment Shuttle Recovery Unilateral Squat Details cues slow eccentric Resistance 37# (1 navy band) Reps/Time 15 ea Bilateral Squat Details TB #3 around thighs with cues for knee position Resistance 67 (2 navy bands) Reps/Time 15 reps Shuttle Balance red clips Comments Fwd& side: WBOS and NBOS fwd: staggered stance B Manual Therapy Treatment Consent Patient gave verbal Yes consent for manual treatment Soft Tissue Mobilization LE Body Location B quads Mobilization Type Rolling hip Body Location B TFL, iliacus Mobilization Type Rolling,Sustained Pressure Comments gentle hip IR/ER and heel slides Neuro Re-Education Treatment Balance Activities bosu Details lat step up and over x5 B Physical Therapy Assessment Goals balance Short Term Goal (STG Pt will be able to do SLS at least 10 sec B ) 01/31/25: MET Goal: R 20s, L 14s STG Duration 02/14 GOAL MET 01/31/25 Rail Equipment Operator Goal (LTG) Pt will be able to do SLS at least 15 sec B to show improved stability and balance 01/31/25: progressing R 20s, L 14s 02/07/25: progressingR 9 sec, L 30 sec. LTG Duration progressing 02/07/25 activities Short Term Goal (STG Pt will be able to roll in bed and do sit to stand from ) chair w/o inc pain in back, hips or legs. 01/31/25: rolling in bed no increased pain but improve 40 % better (compared to months before PT and with muscle relaxers), coming to stand initially creaky but not painful but STS as an ex 7/10 in knees performing 10 reps but is modifying range for tolerance. 02/07/25: no pain rolling over no pain, limits her STS due to knee crunching and added pain so does mini squat at counter. STG Duration achieved 02/13 Residential Goal (LTG) Pt will be able to resume full length walks (~1 mile) and bridging in bed w/o inc pain in back, hips or legs . 01/31/25: no pain with bridges at 45/100 soft mattress. Walking about 10,000 steps a day and 5000 steps in 1 distance walking this am 10/04 with pain in hips better than 01/03 when started. 02/07/25: walked 6, 000 so far and had hip job. 02/13-able to bridge w/o pain, hurts if keeps going with walk, normal step count is 10-16k in day, now between 9k-14k but ant hip pain LTG Duration 03/25 progess 02/07/25 strength Short Term Goal (STG Pt will be indep w/HEP ) STG Duration achieved advancing as able [facility]idential Goal (LTG) pt will score at least 3/5 on LPM all planes and at least 4+/5 on all BLE MMT to show improved stability in order to be able to do ADLs w/o inc pain. 02/13 improving LTG Duration 03/25 Assessment Summary Assessment Pt did better with balance exercises and had improved ability to be on unstable surfaces w/less use of rails. Improved tolerance to inc resistance w/leg press Physical Therapy Plan Frequency and Duration Frequency of 2x/Week Treatment Duration of 10 treatment (weeks) Plan of Care Start 01/14/25 Date Plan of Care End 03/25/25 Date Next Visit Focus/Plan Next Note Type Treatment Note Next Visit Plan Next: cont to advance strength focusing on hip flexors and glutes
--- NOTE | 2025-02-26 13:51 | PT.OTN ---
Current Diagnoses Dorsalgia, unspecified (02/26/25) Unspecified injury of lower back, initial encounter (02/26/25) Physical Therapy Treatment Note PT OP: Lower Back/Lower Extremity Start: 01/31/25 15:35 Freq: Status: Active Protocol: Document 02/26/25 13:00 SP (Rec: 02/26/25 13:53 SP [id number]) Out-Patient Physical Therapy Visit Information Visit Information Visit Type Treatment Note Visit Start Time 13:00 Visit Stop Time 13:51 Visit Number 13 Number of WAITER/WAITRESS ECONOMY CLASS Visits 1 Progress Note Due 03/15/25 OP-PT Subjective Patient Comments Patient Comments Pt reports L hip bothersome. Therapeutic Exercises Supine Exercises FIg 4 Supine Exercise Name added to HEP with HO Resistance opp LE straight Reps/Minutes 30sec each LE Piriformis Stretch Supine Exercise Name DC, unable to get ankle over opp knee, limited hip ER- 02/26/25 Prone Exercises quad stretch Prone Exercise Name added to HEP with strap and HO set up and recall Side left Equipment Used strap on foot Reps/Minutes 60 sec hold x2 Comments cued gentle/slow foot toward buttocks Standing Exercises quad stretch Standing Exercise added to HEP with HO option Name Side left Equipment Used rail support, L foot behind on chair Reps/Minutes 30 sec Comments cued for posture and PPT pelvic alignment, wt shift back quad stretch Manual Therapy Treatment Consent Patient gave verbal Yes consent for manual treatment Soft Tissue Mobilization LE Body Location B quads, L TFL, L HS, L calves Mobilization Type Rolling Body Position hooklying and SL hip Body Location L TFL, iliacus Mobilization Type Rolling,Sustained Pressure Comments gentle hip IR/ER and heel slides Self-Care/Home Management Treatment Education Patient Education Body Mechanics,Home Exercise Program,Joint Protection, Pain Management,Posture Other Education Time spent discussion on anatomy, use of core engagment and how supports and affects body mechanics. Added quad stretch to which helped decrease hip and back tension. Physical Therapy Assessment Goals balance Short Term Goal (STG Pt will be able to do SLS at least 10 sec B ) 01/31/25: MET Goal: R 20s, L 14s STG Duration 02/14 GOAL MET 01/31/25 Group Home Goal (LTG) Pt will be able to do SLS at least 15 sec B to show improved stability and balance 01/31/25: progressing R 20s, L 14s 02/07/25: progressingR 9 sec, L 30 sec. LTG Duration progressing 02/07/25 activities Short Term Goal (STG Pt will be able to roll in bed and do sit to stand from ) chair w/o inc pain in back, hips or legs. 01/31/25: rolling in bed no increased pain but improve 40 % better (compared to months before PT and with muscle relaxers), coming to stand initially creaky but not painful but STS as an ex 7/10 in knees performing 10 reps but is modifying range for tolerance. 02/07/25: no pain rolling over no pain, limits her STS due to knee crunching and added pain so does mini squat at counter. STG Duration achieved 02/13 Fire Hydrant Mechanic Goal (LTG) Pt will be able to resume full length walks (~1 mile) and bridging in bed w/o inc pain in back, hips or legs . 01/31/25: no pain with bridges at 45/100 soft mattress. Walking about 10,000 steps a day and 5000 steps in 1 distance walking this am 10/04 with pain in hips better than 7/10 when started. 02/07/25: walked 6, 000 so far and had hip job. 02/13-able to bridge w/o pain, hurts if keeps going with walk, normal step count is 10-16k in day, now between 9k-14k but ant hip pain LTG Duration 03/25 progess 02/07/25 strength Short Term Goal (STG Pt will be indep w/HEP ) STG Duration achieved advancing as able Fire Hydrant Mechanic Goal (LTG) pt will score at least 3/5 on LPM all planes and at least 4+/5 on all BLE MMT to show improved stability in order to be able to do ADLs w/o inc pain. 02/13 improving LTG Duration 03/25 Assessment Summary Assessment Pt improved L hip mobillity post manual. Cues for set up and proper form trunk and pelvic alignment with TA spinal support during added quad stretch in 2 positions for finding most effective for her. Provided HO for self set up and recall home carryover. Physical Therapy Plan Frequency and Duration Frequency of 2x/Week Treatment Duration of 10 treatment (weeks) Plan of Care Start 01/14/25 Date Plan of Care End 03/25/25 Date Therapeutic Interventions Therapeutic Balance Training,Gait Training,Home Exercise Program, Interventions Joint Mobilizations,Patient/Caregiver Education,Self- Care/Home Management,Soft Tissue Mobilization,Taping, Therapeutic Activities,Therapeutic Exercises Modalities Cold Pack/Ice Massage,Electric Stimulation,Hot Packs, Infrared Therapy,Ultrasound Next Visit Focus/Plan Next Note Type Treatment Note Next Visit Plan Recheck quad stretch given last tx. POC: Next: cont to advance strength focusing on hip flexors and glutes
--- NOTE | 2025-02-28 15:21 | PT.OTN ---
Current Diagnoses Dorsalgia, unspecified (02/28/25) Unspecified injury of lower back, initial encounter (02/28/25) Physical Therapy Treatment Note PT OP: Lower Back/Lower Extremity Start: 01/31/25 15:35 Freq: Status: Active Protocol: Document 02/28/25 14:39 SP (Rec: 02/28/25 15:08 SP [id number]) Out-Patient Physical Therapy Visit Information Visit Information Visit Type Treatment Note Visit Start Time 14:39 Visit Stop Time 15:21 Visit Number 14 Number of VACATION PLANNER Visits 2 Progress Note Due 03/15/25 OP-PT Subjective Patient Comments Patient Comments Pt reports my thighs were pretty sore and uncomfortable after last tx and still recovering, and didn't sleep well Tues night. Is there a way can use the stim has had in her past PT tx to see if would help ? She reports she was able to pick some weeds in her yard now without pain, improved strength and not feel of balance. Therapeutic Exercises Supine Exercises bridge Supine Exercise Name pelvic tilt segmental roll up/down during bridge Side bilateral Resistance AROM post manual 02/28/25 Reps/Minutes x15 reps Comments cues segmental lift/lower Prone Exercises quad stretch Prone Exercise Name reviewed with HO Side bilateral Equipment Used strap on foot Reps/Minutes 60 sec hold x3 each Comments cued GENTLE/SLOW foot toward buttocks Standing Exercises Resisted stepping Standing Exercise backward stepping- post manual for functional glut and Name core activation Resistance TB #1 around shins Reps/Minutes 15 ft x2 laps Comments cued rhomboid and TA engagment and slower pacing for midline stability Manual Therapy Treatment Consent Patient gave verbal Yes consent for manual treatment Soft Tissue Mobilization LE Body Location B quads Mobilization Type Myofascial Release Intensity/Depth Moderate Body Position Hooklying Electric Stimulation Electric Stimulation IFC Body Location Paxton quads Intensity 18 Target/Sweep Sweep High/Low High Patient Position Hooklying Combined With Heat/ Hot Pack Cold Comments Pre exercise and stretching for muscle soreness reduction- good feedback response that feels so much better Physical Therapy Assessment Goals balance Short Term Goal (STG Pt will be able to do SLS at least 10 sec B ) 01/31/25: MET Goal: R 20s, L 14s STG Duration 02/14 GOAL MET 01/31/25 Dial Printer Goal (LTG) Pt will be able to do SLS at least 15 sec B to show improved stability and balance 01/31/25: progressing R 20s, L 14s 02/07/25: progressingR 9 sec, L 30 sec. LTG Duration progressing 02/07/25 activities Short Term Goal (STG Pt will be able to roll in bed and do sit to stand from ) chair w/o inc pain in back, hips or legs. 01/31/25: rolling in bed no increased pain but improve 40 % better (compared to months before PT and with muscle relaxers), coming to stand initially creaky but not painful but STS as an ex 7/10 in knees performing 10 reps but is modifying range for tolerance. 02/07/25: no pain rolling over no pain, limits her STS due to knee crunching and added pain so does mini squat at counter. STG Duration achieved 02/13 Dial Printer Goal (LTG) Pt will be able to resume full length walks (~1 mile) and bridging in bed w/o inc pain in back, hips or legs . 01/31/25: no pain with bridges at 45/100 soft mattress. Walking about 10,000 steps a day and 5000 steps in 1 distance walking this am 4/10 with pain in hips better than 7/10 when started. 02/07/25: walked 6, 000 so far and had hip job. 02/13-able to bridge w/o pain, hurts if keeps going with walk, normal step count is 10-16k in day, now between 9k-14k but ant hip pain LTG Duration 03/25 progess 02/07/25 strength Short Term Goal (STG Pt will be indep w/HEP ) STG Duration achieved advancing as able Nursing Home Goal (LTG) pt will score at least 3/5 on LPM all planes and at least 4+/5 on all BLE MMT to show improved stability in order to be able to do ADLs w/o inc pain. 02/13 improving LTG Duration 03/25 Assessment Summary Assessment Pt good feedback response to IFC to bilateral quads with MHP and manual MFR glides, my quads are more relaxed. Cues for slow, light, gentle quad stretch prone today with use hand out provided last tx for recall and carryover as needed for anterior thigh tightness. Pt improved active eccentric hip flexor engagement during hip extension bridging and resisted back stepping end of tx post manual and stretching. Pt demonstrates improved mobility and reports less quad discomfort leaving today. Physical Therapy Plan Frequency and Duration Frequency of 2x/Week Treatment Duration of 10 treatment (weeks) Plan of Care Start 01/14/25 Date Plan of Care End 03/25/25 Date Therapeutic Interventions Therapeutic Balance Training,Gait Training,Home Exercise Program, Interventions Joint Mobilizations,Patient/Caregiver Education,Self- Care/Home Management,Soft Tissue Mobilization,Taping, Therapeutic Activities,Therapeutic Exercises Modalities Cold Pack/Ice Massage,Electric Stimulation,Hot Packs, Infrared Therapy,Ultrasound Next Visit Focus/Plan Next Note Type Treatment Note Next Visit Plan Recheck quad stretch, ed for slow gentle slow stretch. Incorporate manual and modalities PRN. POC: Next: cont to advance strength focusing on hip flexors and glutes *03/07/25: 5th visit and potential complete early Update POC so rest of VACATION PLANNER appts in good standing til sees primary PT Mar 27.
--- NOTE | 2025-03-05 14:35 | PT.OTN ---
Current Diagnoses Dorsalgia, unspecified (03/05/25) Unspecified injury of lower back, initial encounter (03/05/25) Physical Therapy Treatment Note PT OP: Lower Back/Lower Extremity Start: 01/31/25 15:35 Freq: Status: Active Protocol: Document 03/05/25 13:47 SP (Rec: 03/05/25 13:48 SP [id number]) Out-Patient Physical Therapy Visit Information Visit Information Visit Type Treatment Note Visit Note ILIA Welsh assisted with manual tx with patient permission while under direct instruction of MINE EQUIPMENT DESIGN ENGINEER Dylan . Visit Start Time 13:48 Visit Stop Time 14:35 Visit Number 15 Number of MINE EQUIPMENT DESIGN ENGINEER Visits 3 Progress Note Due 03/15/25 OP-PT Subjective Patient Comments Patient Comments Pt reports felt better after last tx. She was able to walk with sister, which walks faster than her normal and was able to keep up. The TENS machine helped last tx. Therapeutic Exercises Supine Exercises FIg 4 Supine Exercise Name reviewed 03/05/25 Side bilateral Resistance opp LE straight Reps/Minutes 30sec each LE Comments cued NS as needed, not feel much of a stretch HS Stretch Supine Exercise Name 1. static 2. dynamic ankle pump- reviewed mobility Side bilateral Equipment Used grasp behind Reps/Minutes 1.30 sec 2. 10 AP Comments cued slow lower leg lift- tighter on R than L TA KFO Supine Exercise Name review Side bilateral Resistance L3 individually Reps/Minutes 10 each side Comments cued slow pacing, good self level pelvis bridge Supine Exercise Name pelvic tilt segmental roll up/down during bridge Side bilateral Resistance TB #3 [place] around thighs Reps/Minutes 5 SH x10 Comments cues segmental lift/lower Prone Exercises quad stretch Prone Exercise Name much easier to do seat back quad stretch, quad pain prone so will DC 03/05/25 Side bilateral Equipment Used strap on foot Reps/Minutes 60 sec hold x3 each Comments cued GENTLE/SLOW stretch, not push into pain Sitting Exercises sit backs Sitting Exercise 1. sit back 2. Progression sit back with pull down Name Side bilateral Resistance 1. AROM 2. added TB #1 (anchored on door behind pt) Equipment Used edge table, seated on 65cm tball Reps/Minutes 15 reps each Comments cues posture, keep feet on floor, recline back with TA engaged Standing Exercises quad stretch Standing Exercise brief verbal review 03/05/25- better response home Name Side left Equipment Used rail support, L foot behind on chair Reps/Minutes 30 sec Comments cued for posture and PPT pelvic alignment, wt shift back quad stretch Resisted stepping Standing Exercise backward stepping- verbal discussion continue back Name stepping Resistance TB #1 around shins Reps/Minutes 15 ft x2 laps Comments for glut and active quad lengthening Other Exercises self STMs Other Exercise Name reviewed rolling pin: *quad, HS, adductor, calf Side bilateral Equipment Used seated Manual Therapy Treatment Consent Patient gave verbal Yes consent for manual treatment Soft Tissue Mobilization LE Body Location B mid to proximal quads Mobilization Type Instrument Assisted,Myofascial Release Intensity/Depth Moderate Body Position Hooklying LEs over foam roller Comments cupping glides multidirectional to Paxton quads, moderate suction- good response Physical Therapy Assessment Goals balance Short Term Goal (STG Pt will be able to do SLS at least 10 sec B ) 01/31/25: MET Goal: R 20s, L 14s STG Duration 02/14 GOAL MET 01/31/25 Oracle Financial Application Developer Goal (LTG) Pt will be able to do SLS at least 15 sec B to show improved stability and balance 01/31/25: progressing R 20s, L 14s 02/07/25: progressingR 9 sec, L 30 sec. LTG Duration progressing 02/07/25 activities Short Term Goal (STG Pt will be able to roll in bed and do sit to stand from ) chair w/o inc pain in back, hips or legs. 01/31/25: rolling in bed no increased pain but improve 40 % better (compared to months before PT and with muscle relaxers), coming to stand initially creaky but not painful but STS as an ex 7/10 in knees performing 10 reps but is modifying range for tolerance. 02/07/25: no pain rolling over no pain, limits her STS due to knee crunching and added pain so does mini squat at counter. STG Duration achieved 02/13 Oracle Financial Application Developer Goal (LTG) Pt will be able to resume full length walks (~1 mile) and bridging in bed w/o inc pain in back, hips or legs . 01/31/25: no pain with bridges at 45/100 soft mattress. Walking about 10,000 steps a day and 5000 steps in 1 distance walking this am 4/10 with pain in hips better than 7/10 when started. 02/07/25: walked 6, 000 so far and had hip job. 02/13-able to bridge w/o pain, hurts if keeps going with walk, normal step count is 10-16k in day, now between 9k-14k but ant hip pain LTG Duration 03/25 progess 02/07/25 strength Short Term Goal (STG Pt will be indep w/HEP ) STG Duration achieved advancing as able Custodial Goal (LTG) pt will score at least 3/5 on LPM all planes and at least 4+/5 on all BLE MMT to show improved stability in order to be able to do ADLs w/o inc pain. 02/13 improving LTG Duration 03/25 Assessment Summary Assessment Pt responded well to manual and additive of cupping to quads for flexibility. She reports no significant change to ROM with stretching. End of tx instruction carryover sit backs for core strengthening, cues for spinal alignment and TA engagement with feet planted on floor with preferrably hip ER with knee parallel with feet, pt tends to perform hip IR for stability. GOod feedback to progression added resistance sit back with pull down use theraband, good self correction pelvic alignment and TA fac to decrease over recruitment irritation of LB. She may benefit from knee mobes and abdominal MFR to see if contributes to anterior hip and thigh tightness. Pt responds better to standign sit back quad stretch vs prone. Physical Therapy Plan Frequency and Duration Frequency of 2x/Week Treatment Duration of 10 treatment (weeks) Plan of Care Start 01/14/25 Date Plan of Care End 03/25/25 Date Therapeutic Interventions Therapeutic Balance Training,Gait Training,Home Exercise Program, Interventions Joint Mobilizations,Patient/Caregiver Education,Self- Care/Home Management,Soft Tissue Mobilization,Taping, Therapeutic Activities,Therapeutic Exercises Modalities Cold Pack/Ice Massage,Electric Stimulation,Hot Packs, Infrared Therapy,Ultrasound Next Visit Focus/Plan Next Note Type Treatment Note Next Visit Plan Recheck quad stretch, trial knee anterior translation mob distal quad flexibility, inferior ab myofascial for support hip flexor mobility, oontinue ed for slow gentle slow stretch. Incorporate manual and modalities PRN. POC: Next: cont to advance strength focusing on hip flexors and glutes *03/07/25: 5th visit and potential complete early Update POC so rest of MINE EQUIPMENT DESIGN ENGINEER appts in good standing til sees primary PT Mar 27.
--- NOTE | 2025-03-07 12:19 | PT.OTN ---
Current Diagnoses Dorsalgia, unspecified (03/07/25) Unspecified injury of lower back, initial encounter (03/07/25) Physical Therapy Treatment Note PT OP: Lower Back/Lower Extremity Start: 01/31/25 15:35 Freq: Status: Active Protocol: Document 03/07/25 11:31 BL (Rec: 03/07/25 12:18 BL Laptop) Out-Patient Physical Therapy Visit Information Visit Information Visit Type Treatment Note Visit Start Time 11:30 Visit Stop Time 12:10 Visit Number 16 Number of ASSEMBLER SHOW MOTOR Visits 0 Progress Note Due 03/15/25 OP-PT Subjective Patient Comments Patient Comments Pt presents to the clinic this date and reports she is doing well, states continues to feel improvements in her strength and stability and decrease in thigh pain. Therapeutic Exercises Supine Exercises FIg 4 Supine Exercise Name reviewed Side bilateral Resistance push for anterior hip stretch Reps/Minutes 30sec each LE Comments x3 HS Stretch Supine Exercise Name 1. static 2. dynamic ankle pump- reviewed mobility Side bilateral Equipment Used grasp behind Reps/Minutes 1.30 sec 2. 10 AP Comments cued slow lower leg lift- tighter on R than L bridge Supine Exercise Name pelvic tilt segmental roll up/down during bridge ( reviewed) Side bilateral Resistance TB #3 [place] green around thighs Reps/Minutes 5 SH x10 Comments cues segmental lift/lower Manual Therapy Treatment Soft Tissue Mobilization LE Body Location B mid to proximal quads Mobilization Type Instrument Assisted,Myofascial Release Intensity/Depth Moderate Body Position Hooklying LEs over foam roller Comments cupping glides multidirectional to Paxton quads, moderate suction- good response Physical Therapy Assessment Goals balance Short Term Goal (STG Pt will be able to do SLS at least 10 sec B ) 01/31/25: MET Goal: R 20s, L 14s STG Duration 02/14 GOAL MET 01/31/25 Parts Advisor Goal (LTG) Pt will be able to do SLS at least 15 sec B to show improved stability and balance 01/31/25: progressing R 20s, L 14s 02/07/25: progressingR 9 sec, L 30 sec. LTG Duration progressing 02/07/25 activities Short Term Goal (STG Pt will be able to roll in bed and do sit to stand from ) chair w/o inc pain in back, hips or legs. 01/31/25: rolling in bed no increased pain but improve 40 % better (compared to months before PT and with muscle relaxers), coming to stand initially creaky but not painful but STS as an ex 7/10 in knees performing 10 reps but is modifying range for tolerance. 02/07/25: no pain rolling over no pain, limits her STS due to knee crunching and added pain so does mini squat at counter. STG Duration achieved 02/13 [facility] Goal (LTG) Pt will be able to resume full length walks (~1 mile) and bridging in bed w/o inc pain in back, hips or legs . 01/31/25: no pain with bridges at 45/100 soft mattress. Walking about 10,000 steps a day and 5000 steps in 1 distance walking this am 10/04 with pain in hips better than 10 when started. 02/07/25: walked 6, 000 so far and had hip job. 02/13-able to bridge w/o pain, hurts if keeps going with walk, normal step count is 10-16k in day, now between 9k-14k but ant hip pain LTG Duration 03/25 progess 02/07/25 strength Short Term Goal (STG Pt will be indep w/HEP ) STG Duration achieved advancing as able Parts Advisor Goal (LTG) pt will score at least 3/5 on LPM all planes and at least 4+/5 on all BLE MMT to show improved stability in order to be able to do ADLs w/o inc pain. 02/13 improving LTG Duration 03/25 Assessment Summary Assessment Pt tolerates session well with advances for posterior chain strengthening. Pt reports improved symptom following session. Pt will continue to benefit from strength and endurance training to paxton hips for improved mobility. Physical Therapy Plan Frequency and Duration Frequency of 2x/Week Treatment Duration of 10 treatment (weeks) Plan of Care Start 01/14/25 Date Plan of Care End 03/25/25 Date Next Visit Focus/Plan Next Note Type Treatment Note Next Visit Plan Recheck quad stretch, trial knee anterior translation mob distal quad flexibility, inferior ab myofascial for support hip flexor mobility, oontinue ed for slow gentle slow stretch. Incorporate manual and modalities PRN. POC: Next: cont to advance strength focusing on hip flexors and glutes *03/07/25: 5th visit and potential complete early Update POC so rest of ASSEMBLER SHOW MOTOR appts in good standing til sees primary PT Oct 1.
--- NOTE | 2025-03-15 11:31 | PT.OTN ---
Current Diagnoses Dorsalgia, unspecified (03/15/25) Unspecified injury of lower back, initial encounter (03/15/25) Physical Therapy Treatment Note PT OP: Lower Back/Lower Extremity Start: 01/31/25 15:35 Freq: Status: Active Protocol: Document 03/15/25 10:51 SP (Rec: 03/15/25 11:32 SP [id number]) Out-Patient Physical Therapy Visit Information Visit Information Visit Type Treatment Note Visit Note ILIA Welsh assisted patient and MANAGER WEALTH MANAGEMENT Devi with balance assessment and data collection of BLEs strength awareness for update on her progression, while under direct supervision and instruction of VALARIE Richardson. Visit Start Time 10:51 Visit Stop Time 11:31 Visit Number 17 Number of MANAGER WEALTH MANAGEMENT Visits 1 Progress Note Due 03/15/25 OP-PT Subjective Patient Comments Patient Comments Pt reports doing HEP 3-4 days/week, good standing quad stetch holding foot behind buttocks is the easiest postion for her. She reported did have a bout of dizziness early on this PT encounter and asked for a vestibular PT but has since gone away so may not need it. Hip Strength Hip Manual Muscle Testing Right Flexion (L2) 5 Normal Extension (S1) 4+ Good+ Abduction 4+ Good+ Adduction 3+ Fair+ External Rotation 4 Good Internal Rotation 5 Normal Comments pain abd B mild Left Flexion (L2) 5 Normal Extension (S1) 4+ Good+ Abduction 4+ Good+ Adduction 4 Good External Rotation 4 Good Internal Rotation 5 Normal Comments B hip pn with adduction Therapeutic Exercises Supine Exercises FIg 4 Supine Exercise Name verbal review HS Stretch Supine Exercise Name verbal review SL bridge Supine Exercise Name verbal review TA KFO Supine Exercise Name DC easy isometric Supine Exercise Name verbal review bridge Supine Exercise Name DC doing step ups and resisted stepping a progression Sitting Exercises sit backs Sitting Exercise verbal review for HEP Name Standing Exercises quad stretch Reps/Minutes 30 sec Comments good form and quad stretch response Resisted stepping Standing Exercise verbal review continue as HEP Name Manual Therapy Treatment Manual Techniques MMT BLEs Comments MMT BLEs for goal assessment Neuro Re-Education Treatment Balance Activities SLS Comments 03/15/25: L 44sec R 38 sec Physical Therapy Assessment Goals balance Short Term Goal (STG Pt will be able to do SLS at least 10 sec B ) 01/31/25: MET Goal: R 20s, L 14s STG Duration 02/14 GOAL MET 01/31/25 Paradi Tender Goal (LTG) Pt will be able to do SLS at least 15 sec B to show improved stability and balance 01/31/25: progressing R 20s, L 14s 02/07/25: progressingR 9 sec, L 30 sec. 03/15/25: L 44 sec, R 38 sec LTG Duration MET GOAL 03/15/25 activities Short Term Goal (STG Pt will be able to roll in bed and do sit to stand from ) chair w/o inc pain in back, hips or legs. 01/31/25: rolling in bed no increased pain but improve 40 % better (compared to months before PT and with muscle relaxers), coming to stand initially creaky but not painful but STS as an ex 7/10 in knees performing 10 reps but is modifying range for tolerance. 02/07/25: no pain rolling over no pain, limits her STS due to knee crunching and added pain so does mini squat at counter. STG Duration achieved 02/13 Intermediate Goal (LTG) Pt will be able to resume full length walks (~1 mile) and bridging in bed w/o inc pain in back, hips or legs . 01/31/25: no pain with bridges at 45/100 soft mattress. Walking about 10,000 steps a day and 5000 steps in 1 distance walking this am 4/10 with pain in hips better than 7/10 when started. 02/07/25: walked 6, 000 so far and had hip job. 02/13-able to bridge w/o pain, hurts if keeps going with walk, normal step count is 10-16k in day, now between 9k-14k but ant hip pain 03/15/25: was able to walk approx 37 min and decent pace , greater than 1 mile, maybe 2. LTG Duration 03/25 MET GOAL strength Short Term Goal (STG Pt will be indep w/HEP ) 03/15/25: she performs HEP 3-4x week, not all of 10 daily STG Duration achieved advancing as able Intermediate Goal (LTG) pt will score at least 3/5 on LPM all planes and at least 4+/5 on all BLE MMT to show improved stability in order to be able to do ADLs w/o inc pain. 02/13 improving 03/15/25: pt has made at least 2.5 grade improvement in strength, see MMT testing results. Has not met 4+/5 with BLEs, still weakness yonathan adduction and hip ER but feels strong enough to continue with HEP home given and focus on strength and stretching. LTG Duration 03/25 almost met 03/15/25 Assessment Summary Assessment Pt has made stength gains BLEs almost met 4+/5 goal except Yonathan adduction and ER in strength still 3+ to 4/5 but still improvement from tested at eval. Took time to condense her HEP for stretching, strength but feels ready to return to self HEP can do all her ADLs as previous performed. Pt in agreeement PT Parish today and complete DC and aware can call her physician if feels need to comet back to PT. Physical Therapy Plan Frequency and Duration Frequency of 2x/Week Treatment Duration of 10 treatment (weeks) Plan of Care Start 01/14/25 Date Plan of Care End 03/25/25 Date Therapeutic Interventions Therapeutic Balance Training,Gait Training,Home Exercise Program, Interventions Joint Mobilizations,Patient/Caregiver Education,Self- Care/Home Management,Soft Tissue Mobilization,Taping, Therapeutic Activities,Therapeutic Exercises Modalities Cold Pack/Ice Massage,Electric Stimulation,Hot Packs, Infrared Therapy,Ultrasound Discharge Physical Therapy Discharge Reasons Goals Met Next Visit Focus/Plan Next Note Type Discharge Summary Next Visit Plan PT Parish to complete DC, PT Sola out on PTO.
--- NOTE | 2025-03-15 16:13 | PT.OPDS ---
Current Diagnoses Dorsalgia, unspecified (03/15/25) Unspecified injury of lower back, initial encounter (03/15/25) Visit Care Team Role Provider Type AGGIE Hunter Family Provider Advanced Regional Controller Specialty: Family Practice Address: [address], [place], [address] Email: [email or web address] Kathrin Carlisle MD Attending Provider Physician Primary Care Provider Referring Provider Specialty: Family Practice SELF PAY SPECIALIST Address: [address] [place], [address] Fax: Email: [email or web address] Visit Number Visit Number 17 Discharge Summary PT OP: Lower Back/Lower Extremity Start: 01/31/25 15:35 Freq: Status: Active Protocol: Document 03/15/25 16:10 DCW (Rec: 03/15/25 16:12 DCW [id number]) Out-Patient Physical Therapy Visit Information Visit Information Visit Type Discharge Summary Physical Therapy Assessment Goals balance Short Term Goal (STG Pt will be able to do SLS at least 10 sec B ) 01/31/25: MET Goal: R 20s, L 14s STG Duration 02/14 GOAL MET 01/31/25 Halfway Goal (LTG) Pt will be able to do SLS at least 15 sec B to show improved stability and balance 01/31/25: progressing R 20s, L 14s 02/07/25: progressingR 9 sec, L 30 sec. 03/15/25: L 44 sec, R 38 sec LTG Duration MET GOAL 03/15/25 activities Short Term Goal (STG Pt will be able to roll in bed and do sit to stand from ) chair w/o inc pain in back, hips or legs. 01/31/25: rolling in bed no increased pain but improve 40 % better (compared to months before PT and with muscle relaxers), coming to stand initially creaky but not painful but STS as an ex 7/10 in knees performing 10 reps but is modifying range for tolerance. 02/07/25: no pain rolling over no pain, limits her STS due to knee crunching and added pain so does mini squat at counter. STG Duration achieved 02/13 Halfway Goal (LTG) Pt will be able to resume full length walks (~1 mile) and bridging in bed w/o inc pain in back, hips or legs . 01/31/25: no pain with bridges at 45/100 soft mattress. Walking about 10,000 steps a day and 5000 steps in 1 distance walking this am 4/10 with pain in hips better than 7/10 when started. 02/07/25: walked 6, 000 so far and had hip job. 02/13-able to bridge w/o pain, hurts if keeps going with walk, normal step count is 10-16k in day, now between 9k-14k but ant hip pain 03/15/25: was able to walk approx 37 min and decent pace , greater than 1 mile, maybe 2. LTG Duration 03/25 MET GOAL strength Short Term Goal (STG Pt will be indep w/HEP ) 03/15/25: she performs HEP 3-4x week, not all of 10 daily STG Duration achieved advancing as able Halfway Goal (LTG) pt will score at least 3/5 on LPM all planes and at least 4+/5 on all BLE MMT to show improved stability in order to be able to do ADLs w/o inc pain. 02/13 improving 03/15/25: pt has made at least 2.5 grade improvement in strength, see MMT testing results. Has not met 4+/5 with BLEs, still weakness yonathan adduction and hip ER but feels strong enough to continue with HEP home given and focus on strength and stretching. LTG Duration 03/25 almost met 03/15/25 Assessment Summary Assessment Pt has met or nearly met all goals, feeling good about her HEP, has no ongoing concerns. Pt agreeable to discharge from skilled therapy at this time. Physical Therapy Plan Discharge Physical Therapy Discharge Reasons Goals Met Next Visit Focus/Plan Next Note Type Discharge Summary
== END 2025-03-18 09:34 | disposition home or self-care (01) ==
LOC: PHYS 10:45
PROVIDERS: Family Provider Internal Medicine; PCP Family Medicine; Referring Provider Family Medicine; Visit Provider Family Medicine
DX: M54.9 Dorsalgia, unspecified (principal); S39.92XA Unspecified injury of lower back, initial encounter
CPT/HCPCS: 97010; 97014; 97110; 97112; 97116; 97140; 97162; 97530; 97535; G0283

== ENCOUNTER → 2025-05-21 10:30 | Outpatient (CLI) | payer MEDICARE, SELFPAY ==
[2025-05-21 12:40] LABS: Appearance Urine UA CLEAR; Bilirubin Urine UA NEGATIVE (NEGATIVE); Color Urine UA YELLOW; Glucose Urine UA NEGATIVE (Negative); Ketones Urine UA NEGATIVE (NEGATIVE); Leukocyte Esterase Urine UA NEGATIVE (NEGATIVE); Nitrite Urine UA NEGATIVE (Negative); Occult Blood Urine UA NEGATIVE (Negative); Protein Urine UA NEGATIVE (Negative); Specific Gravity Urine UA 1.025 (1.000-1.035); Urobilinogen Urine UA 0.2 E.U./dL (0.2)
[2025-05-21 12:51] LABS: Culture Indicated Urine Cult Not Indicated; pH Urine UA 6.0 (4.5-8.0)
== END ==
PROVIDERS: PCP Family Medicine; Visit Provider Obstetrics & Gynecology Gynecology
DX: K63.5 Polyp of colon (principal)
CPT/HCPCS: 81001

== ENCOUNTER → 2025-06-21 | Outpatient (CLI) | payer MEDICARE, SELFPAY ==
--- NOTE | 2025-06-21 10:22 | DI.ECHO.S_ITS ---
[place] +---------+ Hospital : : [address] : : [place] : : [id number] : : Phone: [phone] Echocardiogram Report + + :Name: FAIZA JIMENEZ Study Date: 06/21/2025 Height: 66 in : :[facility] ReadingLocation: Weight: 150 lb : : Gender: Female BSA: 1.8 m2 : :: 1950 Age: 74 yrs BP: 100/74 mmHg: :Reason For Study: PAF : :Ordering Physician: AVELINA STREET Performed By: Chacho Sotelo : :Referring: AVELINA STRE[address] : + + Interpretation Summary - Normal LV contractility with EF > 60% and no WMA. No LVH. Normal diastolic function. - Normal RV contractility. - Normal chamber sizes. - No significant valvular abnormalities. - No obvious intracardiac shunts. - No obvious intracardiac masses/thrombi. - No hemodynamilcally significant pericardial effusion. - Low right sided filling pressures. Conclusion: Normal biventricular function without significant valvular abnormalities. Procedure: A two-dimensional transthoracic echocardiogram with color flow and Doppler was performed. The study quality was technically adequate. Comparison is made with the echocardiogram of 05/07/2019. The patient was in normal sinus rhythm during the exam. Left Ventricle: The left ventricle is normal in size and wall thickness. Left ventricular systolic function is normal. The ejection fraction is estimated to be 60-65%. There are no focal wall motion abnormalities. Normal diastolic function. Right Ventricle: The right ventricle is normal in size and function. Atria: The left atrial size is normal. Right atrial size is normal. There is no Doppler evidence for an interatrial shunt. Mitral Valve: The mitral valve leaflets appear to open well. There is no mitral valve stenosis. There is trace mitral regurgitation. Aortic Valve: The aortic valve is trileaflet. The aortic valve opens well. There is no aortic valve stenosis. There is trace aortic regurgitation. Tricuspid Valve: The tricuspid valve leaflets are thin and pliable. There is mild tricuspid regurgitation. The right ventricular systolic pressure is estimated to be at least 26 mmHg based on an estimated right atrial pressure of 3 mm Hg. Pulmonic Valve: The pulmonic valve is not well seen, but is grossly normal. There is trace pulmonic regurgitation. Great Vessels: The aortic root is normal size. The ascending aorta is normal in size. The aortic arch is normal in size. The pulmonary artery is normal size. The IVC is of normal diameter and collapses greater than 50% with a sniff. This suggests a low right atrial pressure of 3 mm Hg. Pericardium/ Pleura There is no pericardial effusion. MMode/2D Measurements & Calculations LVIDd: 4.1 cm LVOT diam: 2.1 cm LVIDs: 2.6 cm Ao root diam: 3.2 cm FS: 36.7 % asc Aorta Diam: 3.0 cm IVSd: 0.92 cm Ao Arch Diam (Prox Trans): 2.4 cm LVPWd: 0.88 cm LV rogers. diameter/BSA (cm/m^2): 2.3 LV sys. diameter/BSA (cm/m^2): 1.5 LA A2 area: 15.2 cm2 RA long axis: 5.3 cm LA A4 area: 17.6 cm2 RA area: 13.6 cm2 LA length (vol): 5.8 cm RA vol: 29.7 ml LA vol: 38.9 ml RA : 16.8 ml/m2 LA vol index: 22.0 ml/m2 IVC diam: 1.9 cm RVD1 (basal): 3.2 cm RVD2 (mid): 3.0 cm TAPSE: 2.0 cm Doppler Measurements & Calculations Ao V2 max: 128.8 cm/sec LVOT Max Krishna: 92.9 cm/sec Ao V2 mean: 84.2 cm/sec LV V1 max P.5 mmHg Ao max P.6 mmHg LV V1 VTI: 17.9 cm Ao mean P.4 mmHg KAYLENE(I,D): 2.6 cm2 Ao V2 VTI: 23.8 cm KAYLENE(V,D): 2.5 cm2 sev ratio: 0.75 KAYLENE indexed to BSA (cm^2/m^2): 1.5 MV E max krishna: 67.4 cm/sec TR max krishna: 241.1 cm/sec MV A max krishna: 88.7 cm/sec TR max P.2 mmHg MV E/A: 0.76 PA V2 max: 97.9 cm/sec Med Peak E' Krishna: 7.9 cm/sec PA V2 mean: 64.1 cm/sec E/E' med: 8.5 PA mean P.9 mmHg Lat Peak E' Krishna: 7.7 cm/sec PA pr(Accel): 26.3 mmHg E/E' lat: 8.8 E/e' average: 8.7 MV dec time: 0.20 sec SVLVOT): 62.5 ml Reading Physician:JOHN
== END ==
LOC: ECHO 10:21
PROVIDERS: PCP Family Medicine; Referring Provider Internal Medicine; Visit Provider Internal Medicine
DX: I07.1 Rheumatic tricuspid insufficiency (principal); I48.0 Paroxysmal atrial fibrillation
CPT/HCPCS: 93306